=== PATIENT | male | born 1950 | race Caucasian/White ===

== ENCOUNTER 2020-05-29 10:18 | Outpatient (CLI) | payer MEDICARE, MEDICAID, SELFPAY ==
--- NOTE | 2020-05-29 10:30 | CT_ITS ---
WS: [id number] CT NECK WITH CONTRAST HISTORY: OTHER DYSPHAGIA TECHNIQUE: Contiguous 5 mm axial images are performed through the neck with intravenous contrast. Sag ittal and coronal reformats are also submitted. All CT scans at [facility] use at least o ne of these dose optimization techniques: automated exposure control; mA and/or kV adjustment per pat ient size (includes targeted exams where dose is matched to clinical indication); or iterative recons truction. CONTRAST: CONTRAST: Omnipaque 300; 95 mL IV. DLP: 1536.86 mGycm COMPARISON: None available. Large enhancing soft tissue mass centered in the RIGHT neck begins at the RIGHT tongue base and palat ine tonsil and extends inferiorly along the pharyngeal mucosa to the level of the vocal cords. Mass e xtends over a length of at least 8 cm with a maximum diameter of 3.2 cm. There is mixed enhancement a nd areas of nonenhancement which are probably areas of necrosis or abscess formation. Mass extends to involve the epiglottis and the RIGHT vallecula and pyriform sinus. Just below the hyoid cartilage th e mass probably extends to the LEFT of the midline posteriorly although the mass does abut the hyoid cartilage in the thyroid cartilage there is no displacement or destruction apparent at this time. The parapharyngeal fat is been effaced and intubated with the soft tissue. Mass extends posteriorly to a but the prevertebral muscles. There are small cervical chain lymph nodes. The largest at level 2 a 7 mm. There may be additional ly mph nodes encased within the large soft tissue mass. Thyroid gland and salivary glands are normally enhancing with no masses. Increase in cervical lordosis. No osteoblastic or osteolytic disease. Chronic microvascular ischemic disease around the periventricular white matter. RIGHT internal jugul ar vein small caliber. Visualized paranasal sinuses and mastoid air cells are normal. Lung apices are clear. CT/CT neck w con* [id number] IMPRESSION: 1. Very large mass centered in the RIGHT suprahyoid and infrahyoid neck concer antonia for neoplasm. Mild encroachment upon the airway. 2. Mass begins at the RIGHT tongue base and extends inferiorly over a length o f at least 8 cm with a maximum transverse diameter of 3.2 cm. Mass involves the pharyngeal mucosa, epiglottis, RIGHT vallecula and pyriform sinus and the voca l cords. 3. Small cervical chain lymph nodes. There may be additional lymph nodes encas ed within the neoplasm along the RIGHT neck.
[2020-05-29 11:16] LABS: Blood Urea Nitrogen 10 mg/dL (8-23)
[2020-05-29] MEDS: iohexol 300 mg/mL 100 mL Btl IV (11:21)
== END 2020-05-29 10:19 | disposition home or self-care (01) ==
LOC: RADWPI 10:28
PROVIDERS: Family Provider Nurse Practitioner Family; PCP Nurse Practitioner Family; Visit Provider Specialist
DX: R13.19 Other dysphagia (principal); R22.1 Localized swelling, mass and lump, neck
CPT/HCPCS: 70491; 82565; 84520; Q9967

== ENCOUNTER 2020-05-31 11:13 | Outpatient (CLI) | payer MEDICARE, MEDICAID, SELFPAY ==
--- NOTE | 2020-06-01 08:32 | PTH.FRZRPT ---
Frozen Section Notes Speicmen(s): Right oropharyngeal mass Gross: Multiple ward red polypoid fragments measuring 0.8 x 0.6 x 0.5 cm in agg. Preliminary Impression: Squamous cell carcinoma - Specimen Information Pathologist: Latanya Cool Date: 05/31/20 Time Received: 10:45 Time Reported: 10:55 Pathology Specimen Reported to: Dr. Pablito Cesar Specimen reported at what time: 10:55
== END 2020-05-31 11:14 | disposition home or self-care (01) ==
PROVIDERS: PCP Nurse Practitioner Family; Visit Provider Specialist
DX: C10.9 Malignant neoplasm of oropharynx, unspecified (principal)
CPT/HCPCS: 88309

== ENCOUNTER → 2020-07-06 09:59 | Outpatient (BNVA) | payer MEDICARE, MEDICAID, SELFPAY | PROVIDERS: PCP Nurse Practitioner Family; Visit Provider Surgery | DX: Z11.59 Encounter for screening for other viral diseases (principal) | CPT/HCPCS: 87635 ==

== ENCOUNTER 2020-07-10 05:35 | Outpatient (RCR) | payer MEDICARE, MEDICAID, SELFPAY ==
--- NOTE | 2020-07-03 | CT_ITS ---
Radiation Therapy Planning CT images; total exam DLP: 1392.85 mGy-cm MTDD
[2020-07-03] MEDS: lidocaine 1% INJ 20 mL IV (10:40)
--- NOTE | 2020-07-03 13:14 | ONC CON_ITS ---
Dr. Krishnamurthy New Patient Note Patient: Stan Zacarias Unit #: [id number]: 1950 Dicatated By: Stan Krishnamurthy M.D.Date of Visit: Jul 03, 2020 Onc MED New Patient/Consult Referring Physician: Dr. Pablito Cesar M.D. Chief Complaint: Squamous cell carcinoma of the oropharynx. 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 He presents with a 4-month history of oral/pharyngeal pain and difficulty swallowing. He was seen by Dr. Steve on 05/29/2020 and he was noted on exam to have a mass in the right oropharynx which was noted to extend inferiorly. His neck CT showed a large enhancing soft tissue mass centered in the right neck beginning at the right tongue base and palate teen tonsil and extending inferiorly along the pharyngeal mucosa to the level of the vocal cords. The mass was noted to extend over a distance of at least 8 cm with a maximum diameter of 3.2 cm. The mass was noted to involve the epiglottis and the right vallecula and piriform sinus. Below the hyoid cartilage it appeared to extend to the left of the midline posteriorly. The parapharyngeal fat was noted to be effaced and intubated with the soft tissue. The mass was noted to extend posteriorly to abut the prevertebral muscles. Small cervical chain lymph nodes were noted, the largest at level 2 measuring 7 mm. On 05/31/2020 he underwent laryngoscopy/esophagoscopy with biopsy of the right oropharyngeal mass. The mass was noted to have its focus on the right tonsil with extension up into the nasopharynx behind the right soft palate and down into the right lateral oropharynx and into the upper far portion of the piriform sinus. It also was noted to extend diffusely across the posterior oropharynx to at least the midline and possibly a little past the midline. It appeared to involve the area epiglottic fold on the right but the true vocal cords appeared to be normal. He also was noted to have mild esophagitis. The right and left trachea and right and left mainstem bronchi appeared normal. Pathology showed moderately differentiated squamous cell carcinoma. The P16 stain was strongly and diffusely positive. Staging PET/CT on 06/19/2020 showed a large FDG avid right oropharyngeal mass extending from the level of the nasopharynx to the supraglottic larynx measuring 3.6 x 4.7 cm, SUV 17.7. A 9 mm right level 2A lymph node was FDG positive with SUV 3.6 consistent with local metastatic disease. There was no evidence for any other metastatic involvement. He is seen now for further management. He complains that he has no energy. His activity has been very limited. ECOG score is 2. Appetite and oral intake have been poor. His weight is down at least 15 pounds. He does not have fever or night sweats. He has pain in the mouth and throat and he has sharp pains in his right ear. He has had some hearing loss on that side. He continues to have difficulty swallowing. He has COPD and he says his breathing is terrible. He has cough, and at times he has been coughing up blood. He does not complain of chest pain. He has no GI complaints other than his bowel function has not been good due to his poor oral intake. He has urinary frequency and nocturia. He has generalized arthritis pain. The worst is in his back and hips. He has significant pain on the right side of the neck, and he has headache associated with it. He has no focal neurologic symptoms. Past Medical History: His medical history includes anxiety, benign prostatic hyypertrophy, chronic obstructive pulmonary disease, degenerative arthritis, hypertension, and rheumatoid arthritis. Past Surgical History: He underwent laryngoscopy/esophogoscopy on 05/31/2020. His other surgeries have been limited to skin cancer excision and TURP. Medications: amLODIPine Besylate 1 Tablet (of 5 mg) Oral daily, Finasteride 1 Tablet (of 5 mg) Oral daily, Flomax 1 Capsule (of 0.4 mg) Oral daily, Meloxicam 1 Tablet (of 15 mg) Oral daily, Methotrexate 1 Tablet (of 2.5 mg) Oral q 7 days, oxyCODONE-Acetaminophen 1 Tablet (of 5-325 mg) Oral q 6 hours, Spiriva HandiHaler 1 Capsule (of 18 mcg) Inhalation daily, Symbicort 1 Puff(s) (of 160-4.5 mcg/act) Aerosol Inhalation b.i.d., Ventolin HFA 1 Puff(s) (of 108 (90 base) mcg/act) Aerosol, solution Inhalation four times a day Allergies: No Known Allergies. Social History: Mr. aZcarias is . 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 He has a history of smoking cigarettes for 56 years, estimated in the range of 1 pack daily, though he rolls his own. He drinks 8-10 beers daily. Family History: Both parents are , cause unknown to the patient. He has two brothers and a sister, but he has no knowledge about the status of their health. Review Of Symptoms: Constitutional - He has poor energy and his activity is very limited. Appetite and oral intake are poor. His weight is down at least 15 pounds. He does not have fever or night sweats. ECOG score is 2, Eyes - No change in vision, ENMT - He has been having sharp pain in the right ear, he does have some hearing loss on that side. No sinus congestion/drainage. His mouth and throat are sore and he is having difficulty swallowing, Hematologic/Lymphatic - He has easy bruising, Respiratory - He has shortness of breath. He has cough and at times he has been coughing up blood, Cardiovascular - No angina pain. No palpitations, Gastrointestinal - No nausea or vomiting. No heartburn or acid reflux. He has constipation. No blood in the stool or black stools, Genitourinary (M) - No dysuria or hematuria. He has urinary frequency and nocturia. No urgency or incontinence, Musculoskeletal - He has generalized arthritis pain. The most significant is in his back and hips, Integumentary - No skin rash, Neurologic - He has headache associated with the neck pain on the right side. No dizziness. No numbness or tingling. No other focal neurologic symptoms, Psychiatric - He has depression. He is not sleeping well. Vital Signs: Performed on Jul 03, 2020 10:30: 72.00 in, 169.4 lbs, 98.2 F, 82, 22, 131/71 mm(hg), 95 % (LOW), 7, and Performed on Jul 03, 2020 10:30: 22.975 kg/m2 (HIGH). Physical Examination: Constitutional - He appears somewhat weak generally, Eyes - Sclerae nonicteric. Conjunctivae clear, ENMT - There is limited mobility of the mouth. I don't see any lesions in the oral cavity, Neck - No mass or thyromegaly, Hematologic/Lymphatic - There is some mild soft tissue swelling at the angle of the jaw on the right side, and he has tender in that area. There is no other cervical or clavicular adenopathy noted and there is no axillary adenopathy, Respiratory - Lungs are clear with diminished air movement bilaterally, Cardiovascular - Heart rhythm is regular. There is no murmur, gallop, or rub noted, Abdomen - Soft and non-tender. Liver and spleen are not enlarged. There is no abdominal mass or ascites noted and there is no inguinal adenopathy, Back/Spine - No spine or CVA tenderness noted, Extremities - No edema. Pedal pulses are palpable bilaterally. There is chronic purpura on both arms, Integumentary - No rashes. No suspicious skin lesions noted, Neurologic - No focal neurologic deficits noted. Impression: 1. 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 2. He has difficulty swallowing and he has associated weight loss and declining performance status. 3. He continues to smoke, and he has significant ongoing alcohol use. His other medical illnesses include: 4. Hypertension. 5. COPD. 6. Degenerative arthritis and presumably rheumatoid arthritis. 7. Benign prostatic hypertrophy. Plan: The clinical findings and pathology results were reviewed with the patient. We discussed the clinical implications. 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 He is having difficulty swallowing, and he has associated weight loss and declining performance status. He is recommended to undergo chemoradiation, but management will be problematic, mainly due to his social circumstances. He is beginning his radiation planning. He will be referred to surgery for PEG tube placement and placement of Port-A-Cath venous access device. In the meantime, he will be given samples of Ensure to begin some form of nutritional support. Soon as his radiation planning is completed, he will begin chemoradiation utilizing a standard high-dose cisplatin regimen. I reviewed anticipated side effects with the chemotherapy whIch may include nausea/vomiting, alopecia, fatigue, low blood counts, and neuropathy, including the potential for hearing loss, among others. He indicates that he is agreeable to proceeding with treatment as recommended. He will be given a prescription for immediate release oxycodone 10 mg to take up to 4 times daily for his pain. I am also recommending that he stop the methotrexate. Signed By: Stan Krishnamurthy M.D. <<Signature on File>>
--- NOTE | 2020-07-04 12:23 | N.ONRAD NP_ITS ---
Radiation Oncology New Patient Visit Patient: Stan Zacarias MR#: [id number] : 1950 Age: 70 Sex: Male Dictated by: Dr. Bhavesh Lozano Date of Service: 07/03/2020 Referring Physician(s) : Dr. Pablito Cesar Diagnosis: Stage III (T4 N1 M0) P 16+ squamous cell carcinoma originating in the right oropharynx. The tumor is an 8 cm long x 3.2 cm wide mass extending from the right piriform sinus, upwards through the right base of tongue, right tonsil, posterior pharynx crossing midline, nasopharynx, and upwards to the right base of skull. Per personal review of the PET/CT, the tumor appears to track along the facial nerve to the base of skull as there is FDG avidity into the area of the right stylomastoid foramen. The patient also has significant trismus, odynophagia, and right otalgia. Potential treatment challenges include: Continued use of 8-10 cans of beer/day; persistent smoking; patient lives alone; round trip drive of 3 hrs/day; high risk for mcc peg tube dependence; the possibility of requiring an emergent tracheostomy if laryngeal swelling occurs; and the fact that he requires opiate pain medication (potential driving issues???). Purpose of Visit: Discuss the role of radiotherapy with curative intent. History of Present Illness: The patient is a 70-year-old male with a current significant smoking history and a current practice of consuming 8-10 beers per day. In February of this year, the patient reports seeking medical attention from a nurse practitioner with odynophagia. He was treated with empiric antibiotics and as his symptoms continue to progress to include dysphagia and otalgia, he was ultimately referred to an ENT specialist, Dr Cesar. A CT of the neck with contrast (05/29/2020) revealed an 8 cm long x 3.2 cm wide mass with mixed areas of necrosis/abscess involving the right tongue base, pontine tonsil, epiglottis, right vallecula, inferior along the pharyngeal mucosa to the level of the vocal cords, right piriform sinus. In addition, the mass extends inferiorly below the hyoid cartilage and extends to the left of midline posteriorly. The mass does abut the hyoid cartilage and thyroid cartilage, but there is no displacement or destruction of cartilage. The mass extends posteriorly to abut the prevertebral muscles. Only small cervical chain lymph nodes were appreciated, the largest being at level 2A measuring 7 mm. On 05/31/2020, Dr. Cesar performed direct laryngoscopy and flexible esophagoscopy. Per the operative note, a large exophytic mass that appeared to have its focus in the right tonsil extended up into the nasopharynx, behind the right soft palate, and down into the right lateral oropharynx into the upper far portion of the piriform sinus. It also appeared to extend diffusely across the posterior oropharynx to at least the midline and possibly a little past the midline. The tumor appeared to involve the right area epiglottic fold, but the vocal cords were normal. Aside from mild esophagitis, the esophagus was normal to the GE junction. Biopsy of the right oropharyngeal mass revealed moderately differentiated squamous cell carcinoma, P16 strongly positive, and p63 was strongly positive. Biopsy at the GE junction was also completed, and pathology revealed no histopathologic abnormalities. A PET/CT (06/17/2020) revealed a large FDG avid mass extending from the right nasopharynx down to the supraglottic larynx. A 9 mm FDG positive right level 2A lymph node was also appreciated. Furthermore, FDG avidity tracks superiorly into the right styloid process. In consultation today, the patient reports odynophagia, unintended weight loss, right otalgia, and painful trismus. He continues to drink 8-10 cans of beer per day, and he continues to smoke the tobacco equivalence of ~ 1 pack per day. Current Medications: AmLODIPine Besylate, finasteride, flomax, meloxicam, methotrexate, oxyCODONE HCl, oxyCODONE-Acetaminophen, spiriva HandiHaler, symbicort, ventolin HFA. Allergies: No Known Allergies Medical History: - Anxiety, - chronic bronchitis, - history of skin cancer, - hypertension, - rheumatoid arthritis. No history of collagen vascular disease. No previous radiation therapy. Surgical History: Prostate surgery. Family History: Father is at age 82. Mother is at age 82. Both parents are , cause unknown to the patient. He has two brothers and a sister, but he has no knowledge about the status of their health. Social History: Last screened on 07/03/2020 - Heavy tobacco smoker 1.0 pack/day for 56 years (56 pack years). Last screened on 07/03/2020 - Active drinker 10 drinks/day 7 days/week. Current Complaints / Review of Systems: ROS Constitutional - He has poor energy and his activity is very limited. Appetite and oral intake are poor. His weight is down at least 15 pounds. He does not have fever or night sweats. ECOG score is 2. ROS Eyes - No change in vision. ROS ENMT - He has been having sharp pain in the right ear, he does have some hearing loss on that side. No sinus congestion/drainage. His mouth and throat are sore and he is having difficulty swallowing. ROS Hematologic/Lymphatic - He has easy bruising. ROS Respiratory - He has shortness of breath. He has cough and at times he has been coughing up blood. ROS Cardiovascular - No angina pain. No palpitations. ROS Gastrointestinal - No nausea or vomiting. No heartburn or acid reflux. He has constipation. No blood in the stool or black stools. ROS Genitourinary (M) - No dysuria or hematuria. He has urinary frequency and nocturia. No urgency or incontinence. ROS Musculoskeletal - He has generalized arthritis pain. The most significant is in his back and hips. ROS Integumentary - No skin rash. ROS Neurologic - He has headache associated with the neck pain on the right side. No dizziness. No numbness or tingling. No other focal neurologic symptoms. ROS Psychiatric - He has depression. He is not sleeping well.. Vital Signs: Performed on 07/03/2020 10:30 AM BMI - 22.975 kg/m2 (high), Height - 72.00 in, Weight - 169.4 lbs, Temperature - 98.2 f, Pulse - 82, Respiration - 22, O2 Sat - 95 % (low), Pain - 7, BP - 131/ 71 mm(hg), Performed on 07/03/2020 5:38 PM Height - 72.00 in, Weight - 169.4 lbs, BSA - 1.99 sq.m and BMI - 22.97. Physical Exam: GENERAL:??? The patient is alert, and in no acute distress. HEENT:??? Head is normocephalic. Face is symmetric. External ocular movements are intact. Sclera and conjunctivae are non erythematous. Trismus of 2 cm was appreciated. The patient is edentulous. NECK:??? Trachea is midline.??? Thyroid is not enlarged by palpation.??? LYMPH NODES:??? There is no palpable cervical or supraclavicular adenopathy bilaterally. LUNGS:??? Clear to auscultation bilaterally. Respiratory movement is unlabored. HEART:??? Regular rate and rhythm. EXTREMITIES:??? No deformities. NEUROLOGIC:??? Gait and station are normal.??? The patient is well coordinated and strength is equal bilaterally. SORTER PRICER:??? Cranial nerves II-XII are intact and without focal deficits.??? Psych: Affect is normal. Skin: Cursory review of the skin reveals no obvious lesions concerning for malignancy. Nasolaryngoscopy: Fiberoptic nasolaryngoscopy was completed. The nasal cavity and nasopharynx was prepped with a 50/50% nasal spray solution of 1% phenylephrine and 1% lidocaine. After advancing the scope into the left and right nares, there was so much tumor burden that the nasopharynx was full of tumor with significant mass effect. The left torus tubarius was obscured by mass effect. Also due to mass effect, evaluation of the oropharynx & larynx was obscured. Performance Status: 2 - Ambulatory/capable of all self-care, unable to perform any work activities. Up and about more than 50% of waking hours. (ECOG) Impression: The patient is a 70-year-old male with stage III (T4 N1 M0) P 16+ squamous cell carcinoma originating in the right oropharynx. The tumor is an 8 cm long mass extending from the right piriform sinus, upwards through the right base of tongue, right tonsil, nasopharynx, and upwards to the right base of skull. Per personal review of the PET/CT, the tumor appears to track along the facial nerve to the base of skull as there is FDG avidity into the area of the right stylomastoid foramen. The patient also has significant trismus, but he has no facial nerve paralysis on physical exam. We discussed the curative intent treatment goals of radiotherapy, prognosis with and without radiation therapy, radiation treatment logistics, and potential acute and late side effects in detail. The patient verbalized understanding of the risks/benefits of radiotherapy and the patient has agreed to proceed as recommended. I anticipate a complicated treatment course as the patient continues to drink 8 to 10 cans of beer per day, he continues to smoke, he lives alone, and he travels 1.[address] per day. We discussed smoking cessation and alcohol cessation as he is able without experiencing serious alcohol withdrawal symptoms. The patient shared that he is unwilling to cease smoking & drinking. The patient was cautioned that continuing to drink and smoke, especially during treatment, could cause laryngeal swelling to the point that he might require emergent tracheostomy. Therefore the plan is: -) Begin radiation therapy planning today for a planned aggregate dose of 70 Gy/35 fractions concurrent with habematolel based chemotherapy; -) Refer the patient for PEG tube placement along with a planned chemotherapy port; and, -) This patient will likely need long-term pain management. Since I will be covering only temporarily, I will defer pain management to our medical oncology colleagues. The patient will see Dr. Krishnamurthy today after this visit. Signed by: Bhavesh Lozano MD 07/04/2020 12:21:59 PM <<Signature on File>> CPT Code: CPT Code:
== END 2020-07-10 23:59 | disposition home or self-care (01) ==
LOC: ONCMED 05:35
PROVIDERS: Absent Provider Radiology Radiation Oncology; PCP Nurse Practitioner Family; Visit Provider Radiology Radiation Oncology
DX: C10.8 Malignant neoplasm of overlapping sites of oropharynx (principal); R63.4 Abnormal weight loss; F17.210 Nicotine dependence, cigarettes, uncomplicated; I10 Essential (primary) hypertension; J44.9 Chronic obstructive pulmonary disease, unspecified; M19.90 Unspecified osteoarthritis, unspecified site; N40.0 Benign prostatic hyperplasia without lower urinary tract symptoms; Z72.89 Other problems related to lifestyle
CPT/HCPCS: 77300; 77301; 77334; 77338; 77386; 77470; 99205; 99215

== ENCOUNTER → 2020-07-10 09:26 | Day surgery (SDC) | payer MEDICARE, MEDICAID, SELFPAY ==
[2020-07-07 12:48] VITALS: BMI 23.0
[2020-07-10 10:21] VITALS: BP 134/86; PULSE 93; RESP 18; TEMP 37.1; O2SAT 96
[2020-07-10] MEDS: sodium chloride 0.9% 1,000 ML 30 ML IV (10:37)
[2020-07-10 11:49] LABS: Basophils % 0.1 %; Eosinophils % 0.1 %; Hematocrit 38.4 % (42.0-52.0); Hemoglobin 12.5 g/dL (11.7-16.6); Lymphocytes # 1.1 10^3/uL (0.8-4.8); Mean Corpuscular HGB Conc 32.6 g/dL (30.0-36.0); Mean Corpuscular Hemoglobin 34.5 pg (28.0-34.0); Mean Corpuscular Volume 106.1 fL (80-94); Mean Platelet Volume 10.9 fL (7.4-10.4); Monocytes # 1.3 10^3/uL (0.2-0.9); Monocytes % 13.7 %; Neutrophils # 6.74 10^3/uL (1.8-7.7); Neutrophils % 73.9 %; Nucleated Red Blood Cells % 0 %; Platelet Count 376 10^3/cmm (130-400); Red Blood Count 3.62 10^6/uL (4.1-5.3); Red Cell Distribution Width 12.6 % (12.1-15.1); White Blood Count 9.1 10^3/uL (4.0-10.0)
[2020-07-10] MEDS: fentaNYL 50 mcg/mL INJ 2mL IVP (11:55)
[2020-07-10 12:05] LABS: Blood Urea Nitrogen 6 mg/dL (8-23); Calcium 9.6 mg/dL (8.5-10.5); Carbon Dioxide 28 mmol/L (22-29); Chloride 92 mmol/L (98-107); Creatinine Clr Calc Pharmacy 91.3802; Glucose 125 mg/dL (65-115); Osmolality Calculated 273 mOsm/kg (285-295); Sodium 132 mmol/L (136-145)
[2020-07-10 12:08] LABS: Anion Gap 16.4 (5-19); Potassium 4.4 mmol/L (3.5-5.1)
--- NOTE | 2020-07-10 12:59 | SUR.PREOP ---
Addendum entered by Cadence Lewis 07/10/20 13:00: pt given instructions for surgery tomorrow and told to be back here at 0550. pt daughter told this as well. Pt left in wheelchair discharged to daughter. Original Note: patient is being rescheduled to tomorrow at 0700. pt cancelled today due to concern by anesthesia for difficulty intubating due to health condition. plan to do procedure tomorrow at [address] Cesar is available and here for complications.
== END ==
PROVIDERS: PCP Nurse Practitioner Family; Visit Provider Surgery
PROC: 0DH63UZ Insertion of Feeding Device into Stomach, Percutaneous Approach (ICD-10-PCS; CPT 43246; 2020-07-10 11:55)
DX: C76.0 Malignant neoplasm of head, face and neck (principal); J39.2 Other diseases of pharynx; R63.3 Feeding difficulties; Z53.9 Procedure and treatment not carried out, unspecified reason
CPT/HCPCS: 36415; 80048; 85025; J1100; J2250; J3010; J3490; J7030

== ENCOUNTER 2020-07-11 09:15 | Inpatient (IN) | payer MEDICARE, MEDICAID, SELFPAY ==
[2020-07-11] VITALS (25 sets, daily range): BP systolic 103–154; BP diastolic 66–102; PULSE 70–95; RESP 10–28; TEMP 36.6–37.2; O2SAT 87–99; BMI 23.0
--- NOTE | 2020-07-11 | SCC_ITS ---
Procedure Done: Right subclavian vein PowerPort placement 12.6 seconds of fluoroscopic guidance, for a cumulative dose of 2.0mGy, was provided to Dr. Vang by the radiology department. C-arm images of the chest were saved for the patient's permanent record. [facility]
--- NOTE | 2020-07-11 06:26 | W.PM.OPSUD ---
Surgery/Procedure H&P Update DATE OF PROCEDURE: July 11, 2020 DATE H&P PERFORMED: 07/06/20 H&P UPDATE INFORMATION: I have reviewed H&P completed within last 30 days, I have examined patient prior to procedure and Changes to prior documentation as noted here (Patient was scheduled to undergo his procedure yesterday yet I had to postpone till today to have Dr. Steve ENT surgeon available as the patient represent a difficult airway, I did coordinate with Dr. Powell meat products demonstrator about that plan and she agrees to proceed in the presence of ENT service. Particularly that the patient was last seen by ENT service a month ago and potential changes could have taken place.) CHANGES TO PREVIOUS DOCUMENTATION: Patient understands the difficult anatomy that he has because of the oropharyngeal mass. He also understands the potential difficulty extubation and may require mechanical ventilation. He is also aware about the potential high risk of bleeding related to the mass while we are performing the PEG tube placement. The discussion did take place in the presence of patient's nurse Kinga HAINES and patient agrees to proceed accordingly. PREOP DIAGNOSIS: Oropharyngeal cancer PRIMARY INDICATION FOR PROCEDURE: The same PLANNED PROCEDURE: Operation Date: 07/11/20 07:00 Proposed Procedures p Portacath Placement(Not Applicable) - Travis Vang MD s PEG Tube Insertion(Not Applicable) - Travis Vang MD
--- NOTE | 2020-07-11 06:39 | SC_ITS ---
WS: [id number] INTRAOPERATIVE TECHNIQUE: 2 Spot fluoroscopic images for intraoperative purposes. FLUOROSCOPY TIME: 12.6 seconds CLINICAL INFORMATION: port placement COMPARISON: None. FINDINGS: Right Port-A-Cath with tip in the mid SVC in good position. No visualized pneumothorax. SC/C-arm FL for CVA [id number] IMPRESSION: Images obtained for intraoperative purposes.
[2020-07-11] MEDS: sodium chloride 0.9% 1,000 ML 30 ML IV (06:43)
[2020-07-11] MEDS: dexamethasone 4 mg/mL INJ 8 MG INJECTION (06:50)
--- NOTE | 2020-07-11 06:54 | ANES.PREANE2 ---
Pre-Anesthetic Assessment Pre-Anesthetic Assessment: Height/Weight: Height 1.83 m Weight 77.111 kg Preop Diagnosis: Oropharyngeal cancer Proposed Procedure: Operation Date: 07/11/20 07:00 Proposed Procedures p Portacath Placement(Not Applicable) - Travis Vang MD s PEG Tube Insertion(Not Applicable) - Travis Vang MD Familial anesthetic complications: None Was Beta Lexx taken within 24 hours: N/A Last intake: Intake Last Liquid Date 07/11/20 Last Liquid Time 02:00 Last Solid Date 07/10/20 Last Solid Time 23:30 Social: Social History: Alcohol and Tobacco Exam: Pre-Anes Outpt Exam: alert, oriented x 3, clear to auscultation bilaterally and regular rate & rhythm Additional Exam Findings (including area of procedure): coarse breath sounds Airway: MP: 4 Dentition: Full Additional comments: patient unable to open mouth fully Pulmonary: Pulmonary: COPD and Cough Anesthetic Plan: ASA status: 4 Anesthesia: General Other: Large mass impinging on airway, last evaluated 1 month ago, will have Dr. Tali ZhaoNSrikanth at bedside for intubation Risk of > 500 ml blood loss (7ml/kg in children): No Meds/Allergies Current Medications: Current Medications Generic Name Dose Route Start Last Admin Trade Name Freq PRN Reason Stop Dose Admin Sodium Chloride 1,000 mls @ 30 ml s/hr 07/11/20 06:45 07/11/20 06:43 Sodium Chloride 0.9% IV 07/12/20 06:44 30 mls/hr .Q24H NOEL Administration PFSH Anesthesia PFSH: Medical History Oropharyngeal mass Family History Denies family history of Diabetes CAD (coronary artery disease) Anesthesia complication Bleeding disorder Cancer Social History Smoking and tobacco status: current every day smoker Alcohol intake: current Alcohol intake frequency: 3 or more drinks per day Alcohol type: beer Lives independently: Yes Household members: family Marital status: Single Current occupational status: retired History of recent travel: No Data Anesthesia Cardiac Studies: No Data to Display
[2020-07-11] MEDS: lidocaine 2% INJ 20 mL 40 ML INJECTION (07:30)
[2020-07-11] MEDS: thrombin 5,000 unit SDV 5000 UNIT XX (07:45)
--- NOTE | 2020-07-11 08:18 | SUR.OPER ---
0749 - Dr Vang and Dr Ceasr spoke with daughter about need for emergency trach. 2147 - Pt's daughter updated on surgery progress and pt status via her cell phone.
--- NOTE | 2020-07-11 08:26 | XR_ITS ---
WS: [id number] CHEST XRAY TECHNIQUE: Portable chest. CLINICAL INFORMATION: post port placaement COMPARISON: None. FINDINGS: Tracheostomy. Right Port-A-Cath with tip in the distal SVC. Heart: Cardiomegaly. Lungs: Moderate chronic emphysematous changes. No acute pulmonary infiltrates. No focal pneumonia. Az ygos fissure. Bones: Normal visualized bony structures. XR/XR chest 1V portable [id number] IMPRESSION: Right Port-A-Cath with tip in the distal SVC in good position. No pneumothorax.
--- NOTE | 2020-07-11 08:28 | SUR.OPER ---
late entry - pt had nipple piercings x2 and an umbilical piercing. jewelry taken our and replaced with plastic catheter during procedure. will replace at end of procedure.
[2020-07-11] MEDS: heparin 5,000 unit/mL INJ 1 mL 5000 UNIT IRRIGATION (08:30)
--- NOTE | 2020-07-11 09:30 | PC.NURSE ---
Pt arrives to ICU fro Surgery. Ne tach noted. patent. Pt coughing , suctioning bloody secretions. Dressing noted on upper right chest, area slightly puffy and pink from recent port implantation. PEG tube noted mid upper abdomen, no discharge/bleeding noted. Abdominal binder in place. Jewelry noted in belly button and bilat nipples. Iv site noted Left AC, NS infusing.
--- NOTE | 2020-07-11 09:46 | P.CONIM_ITS ---
Providers/Reason For Consult Consulting Physican/Specialty*: mary alice Joynerist Reason for Consult*: Medical management Attending Physician: Travis Vang MD Primary Care Provider: Yesenia Lizarraga History of Present Illness History of Present Illness Stan Zacarias is a 70 year old male with a past medical history of squamous cell carcinoma of the oropharynx that presented today for PEG tube placement as well as Port-A-Cath placement. Due to concern for oropharyngeal mass and difficult airway ENT was also available during this planned procedure and ultimately required tracheostomy. Patient was brought to the ICU following surgery for close observation and monitoring. Unable to obtain information from patient due to procedural sedation Review of Systems General: Reports: ROS unobtainable due to medical condition Meds/Allergies Home Medications and Allergies Home Medications Medication Instructions Recorded Confirmed Last Taken Type albuterol sulfate 90 mcg/actuation 1 inh INHALATION QID 07/06/20 07/11/20 07/11/20 History aerosol inhaler amlodipine 2.5 mg tablet 2.5 mg PO DAILY 07/06/20 07/11/20 07/11/20 03:00 History budesonide-formoterol HFA 160 2 puff INHALATION BID 07/06/20 07/11/20 07/11/20 03:00 History mcg-4.5 mcg/actuation aerosol inhaler finasteride 5 mg tablet 5 mg PO DAILY 07/06/20 07/11/20 07/10/20 History meloxicam 15 mg tablet 15 mg PO DAILY 07/06/20 07/11/20 07/10/20 History methotrexate sodium 2.5 mg tablet 2.5 mg PO DIRECTED 07/06/20 07/11/20 07/05/20 History tamsulosin 0.4 mg capsule 0.4 mg PO DAILY 07/06/20 07/11/20 07/10/20 History tiotropium bromide 2.5 2 puff INHALATION DAILY 07/06/20 07/11/20 07/11/20 History mcg/actuation mist for inhalation oxycodone 10 mg PO Q6H PRN 07/07/20 07/11/20 07/11/20 00:00 History Allergies Allergy/AdvReac Type Severity Reaction Status Date / Time No Known Allergies Allergy Verified 07/08/20 16:45 PFSH Acute PFSH: Medical History Anxiety BPH (benign prostatic hyperplasia) COPD (chronic obstructive pulmonary disease) Hypertension Rheumatoid arthritis 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 Cesar, Dr. Krishnamurthy and Dr. Lozano Surgical History H/O transurethral resection of prostate History of biopsy 05/31/2020 laryngoscopy with biopsy of right oropharyngeal mass History of local excision of skin lesion Family History Mother , Unknown health problems No problems noted. Father , Unknown health problems No problems noted. Denies family history of Diabetes CAD (coronary artery disease) Anesthesia complication Bleeding disorder Cancer Social History Smoking and tobacco status: current every day smoker Alcohol intake: current Alcohol intake frequency: 3 or more drinks per day Alcohol type: beer Lives independently: Yes Household members: family Marital status: Single Current occupational status: retired History of recent travel: No Vitals/I&O/Wt Last Vital Signs Pulse 70 07/11/20 09:42 BP 104/78 07/11/20 09:42 Pulse Ox 90 07/11/20 09:42 07/10/20 07/11/20 07/11/20 22:59 06:59 14:59 Intake Total 100 / 100 1050 / 1050 Balance 100 / 100 1050 / 1050 Weight last 48 hrs Weight 77.111 kg Weight 77.111 kg Physical Exam Const: OTHER: Sleepy secondary to post procedural sedation HENMT: OTHER: Tracheostomy in place Eye: COMMON NORMALS: Equal, round and reactive pupils present PUPIL: Yes Equal, round and reactive pupils present Neck/C-Spine: OTHER: Tracheostomy in place Resp: OTHER: Tracheostomy in place with some secretions status post placement. Lungs clear to auscultation, no appreciable wheezing or rhonchi Cardio: COMMON NORMALS: regular rate, regular rhythm and No murmurs present (Cardio) RATE: regular rate RHYTHM: regular rhythm GI: COMMON NORMALS: Soft to palpation and non-tender INSPECTION: No abdominal distension AUSCULTATION: Yes normoactive bowel sounds PALPATION: Yes Soft to palpation OTHER: PEG tube in place Extremity: COMMON NORMALS: no clubbing, cyanosis or edema Neuro: COMMON NORMALS: CN's II-XII intact bilaterally and no focal motor deficits OTHER: Tracheostomy in place, patient still somewhat sedated following the procedure Psych: OTHER: Come at this time, patient is still under some sedation effects after his procedure Skin: COMMON NORMALS: no rashes or lesions noted GENERAL SKIN EXAM: no rashes or lesions noted Data Imaging^: CXR: I personally reviewed and interpreted this imaging study as follows: Radiologist's impression: FINDINGS: Tracheostomy. Right Port-A-Cath with tip in the distal SVC. Heart: Cardiomegaly. Lungs: Moderate chronic emphysematous changes. No acute pulmonary infiltrates. No focal pneumonia. Azygos fissure. Bones: Normal visualized bony structures. XR/XR chest 1V portable [id number] IMPRESSION: Right Port-A-Cath with tip in the distal SVC in good position. No pneumothorax. A&P Assessment and plan (1) Squamous cell carcinoma of oropharynx: Status post PEG tube placement, Port-A-Cath placement and tracheostomy today performed by Dr. Vang and Dr. Cesar We will follow-up with postoperative care per surgical recommendations Status: Acute (2) Feeding difficulty: Patient with difficulty with feeding due to large oropharyngeal cancer, PEG tube placed today Follow-up with general surgery, Dr. Vang, will likely be able to start use of feeding tube tomorrow Status: Acute (3) Hypertension: Blood pressures well controlled at this time, slightly hypotensive Is on amlodipine 2.5 mg daily, hold today and restart tomorrow if blood pressures allow Status: Acute (4) COPD (chronic obstructive pulmonary disease): With continued tobacco abuse, uncertain if patient is on any home oxygen Status post tracheostomy today Respiratory therapy to assess and treat Oxygen per protocol Status: Acute (5) Anxiety: Will provide Ativan during hospitalization as needed, does not appear to be on any home medications for anxiety Status: Acute (6) BPH (benign prostatic hyperplasia): Continue home Flomax 0.4 mg daily Status: Acute (7) Rheumatoid arthritis: Previously on methotrexate, recommendation to be stopped by Dr. Krishnamurthy, oncology Status: Acute Additional A&P Information DVT prophylaxis: SCDs, no pharmacologic prophylaxis due to tracheostomy and PEG tube placement along with Port-A-Cath placement today Diet: N.p.o., start tube feeds tomorrow CODE STATUS: Full code Consult Attestations Medical Necessity Statement: Patient requires hospitalization due to oropharyngeal mass, squamous cell carcinoma, requiring tracheostomy placement and PEG tube and Port-A-Cath placement. Coding Level of Care Code Acute Emergency Medicine Specialist for g Fwd Diagnoses Squamous cell carcinoma of oropharynx C10.9 Feeding difficulty R63.3 Hypertension I10 COPD (chronic obstructive pulmonary disease) J44.9 Anxiety F41.9 BPH (benign prostatic hyperplasia) N40.0 Rheumatoid arthritis M06.9
--- NOTE | 2020-07-11 09:50 | PM.OP ---
Operative Report Date of procedure: July 11, 2020 Pre-op Diagnosis: Oropharyngeal cancer Post-op diagnosis: same Procedure Done: Right subclavian vein PowerPort placement Peg tube placement 20 Swiss and skin level is at 2-3 cm Implants: Right subclavian PowerPort and a PEG tube. Surgeon: Travis Vang Road Mixer Operator: Road Mixer Operator surgeon Dr. Cesar ENT please find separate dictation for tracheostomy per ENT report Surgical techs Alfred and Jerri hazardous materials waste technician Evie and Sierra Circulating nurses Ebony and Chary Anesthesia: General (Matt Gibson and Dr. Powell/general inhalational anesthesia via 8 Swiss Shiley placed by ENT service and inflated up to 10 cc) Estimated blood loss (mL): 20 Condition: stable Disposition: ICU Procedure: Patient was identified in the holding area and taken to the operative room and placed in supine position, multiple attempts were tried by anesthesia team to intubate the patient yet because of the oropharyngeal growth and the potential tendency to bleed that was aborted and ENT service Dr. Cesar was already on board and he attempted intubation as well but that was not successful.at this point it was deemed necessarily to perform an emergency tracheostomy.Attention was deviated towards tracheostomy on emergency basis after contacting Ilene patient's daughter intraoperatively. Please find separate dictation for tracheostomy placement by Dr. Cesar Patient received inhalational anesthesia via the tracheostomy,both arms maintained to be tucked,Time-out was done verifying the patient's name/date of /planned procedure and destination after the procedure, all were in agreement. SCDs confirmed to be functioning, preoperative antibiotics administered per protocol, and beta sarai protocol was confirmed, appropriate positioning of the patient was done by me. Medications were reviewed to assess for anticoagulant usage. Risks and benefits and prevention of central line associated blood stream infection (CLABSI) were discussed with the patient/CPOA, and a consent was obtained. Monitors were in place and monitored throughout the procedure. All necessary supplies were available prior to start. Hand hygiene was completed prior to starting. Maximum barrier technique was utilized including a sterile gown, sterile gloves with a hat and mask. Site was was prepped with [chlorhexidine] and a full body drape was placed. 5 mL of 2% lidocaine was injected into the skin with a 25 gauge needle. Prep& drape was done under the usual sterile technique with respect to the tracheostomy was kept away from the sterile field, lidocaine 2% was injected at the site of the stick, started by right subclavian vein stick that retrieved venous blood was obtained from the first stick, a guidewire was then threaded and under the guidance of fluoroscopy, there was some PVCs and the wire was pulled out some and PVCs were gone. position was confirmed to be in the IVC At that point the guidewire was secured to the drapes with a hemostat and the needle was taken out, attention was then deviated towards creation of a pocket for the port were lidocaine 2% was injected using an 15 blade knife skin incision was created dissection using the Bovie to create a pocket for the Port-A-Cath to be accommodated, hemostasis was secured, after the port being appropriately flushed it was inserted into the pocket and a tunneler was used to accommodate the catheter of the port cath to be delivered through the incision first created at the site of the stick, at that point under fluoroscopy an estimated length was measured for the catheter and was cut at the designed level, followed by that a dilator with the sheath introduced onto the guidewire the dilator and the wire were retrieved and the catheter of the port was introduced via the sheath where it was peeled off and the catheter maintained to be in the SVC that was confirmed with fluoroscopy, and the fluoroscopy interpretation was done by me throughout the entire procedure. The port was kept in place in its pocket, 3-0 Vicryl deep subdermal interrupted sutures, skin was then closed by 4-0 Monocryl as subcuticular closure. The stick site was closed by 4-0 Monocryl and Dermabond was used followed by dressing. Position of the catheter was checked with in intraoperative chest x-ray and it was in good position without evidence of pneumothorax Attention now was deviated down to PEG placement and continue to make sure that the tracheostomy is secured. Started by introducing the EGD via the mouth under direct visualization, the patient was continuously monitored via cardiac/vascular sonographer, oropharyngeal growth was identified and there was signs of minimal oozing but there is no ongoing bleeding.I was able to assess the esophagus stomach and duodenum till the second part, there was some altered blood in the stomach and esophagus. I was able to identify a good light reflex through the anterior abdominal wall, corresponding to appropriate indentation of the examining finger Prep and drape of the anterior abdominal wall was done under the usual sterile technique, sterile gowns and gloves were used, lidocaine was infiltrated at the site of the needle insertion, my community program assistant held onto the EGD,under direct visualization a needle with the sheath was inserted by me that come with the PEG kit, once the needle and catheter were inserted into the inflated stomach, a needle was taken out, and through the catheter the blue loop wire introduced through the catheter, and via the working channel of the EGD, the retrieval device was inserted under direct visualization, the blue loop was caught by the retrieval device, at this point the scope was taken out and a firm sausage inspector was continued to be applied onto the blue loop wire, the blue loop was then released and the PEG tube was tightened to it outside the patient's mouth, and with the remaining of the blue loop wire was Outside the abdominal wall, I was able to pull the PEG down gently after appropriate lubrication all the way to the stomach,and have it placed in a good position at the level of 2-3 cm at the skin. The EGD was reintroduced by me without difficulty there was no evidence of bleeding, good spinning of the PEG tube was witnessed. The scope was retrieved under direct visualization and gas was deflated,no biopsies were obtained at that point. The PEG tube base and clamp were applied and the PEG tube was connected to gravity All count was completed for both procedures and was correct. Patient tolerated the procedure well and was taken directly to the ICU in stable condition I was present for the whole entire procedure Patient tolerated the procedur well Count was correct at the end of the procedure I was present for the whole entire procedure Associated Problem List Diagnoses (1) Tracheostomy care: (2) Feeding difficulty: (3) Squamous cell carcinoma of oropharynx:
[2020-07-11] MEDS: sodium chloride 0.9% 1,000 ML 50 ML IV (09:58)
[2020-07-11] MEDS: famotidine 20 mg/2 mL INJ IVP ×2 (11:21→22:49)
--- NOTE | 2020-07-11 11:50 | P.OP_ITS ---
Operative Report Date of procedure: July 11, 2020 Pre-op Diagnosis: Oropharyngeal cancer with threatened airway Post-op diagnosis: same Post-op Findings: Large oralpharyngeal tumor extending into the right pyriform sinus Procedure Done: Direct Laryngoscopy Tracheotomy Pathology: none sent Surgeon: Pablito Cesar Program Assistant: Aaron Quevedo Anesthesia: General Estimated blood loss (mL): 25 IV fluids (mL): 1,000 Complications: None Findings: Large, partially obstructing right oral pharyngeal tumor extending into the right pyriform sinus and distorting the airway Condition: stable Disposition: ICU Brief History: 70 yo wm with a h/o a large oral pharyngeal tumor who presents for PEG and Port placement with difficult airway Procedure: The patient was then defined the preoperative area was taken to the operating room where he was placed on the operating table in supine position and anesthesia was obtained with general mask anesthesia. Anesthesia and ENT were unable to intubate the patient so we made a decision to perform tracheotomy to secure the airway prior to PEG and port placement. A direct laryngoscopy was performed with the findings noted above. We contacted patient's daughter and d iscussed tracheotomy with her at length - she agreed and gave permission to proceed. At this point a vertical incision was drawn out on the patient's lower midline neck just above the sternal notch. This area was injected local anesthesia and the patient was then prepped and draped in usual sterile fashion. The incision was made in the skin with a 15 blade was carried down through subcutaneous tissue with surgical electrocautery. The [employer] retractors were used to retract the soft tissues laterally until the airway was identified both visually and to palpation. The thyroid isthmus was elevated off of the trachea and the harmonic scalpel was used to divide the thyroid isthmus. At this point the third tracheal ring was identified and the anterior portion was removed with an 11 blade. At this point a #8 tracheotomy tube was placed in the trachea and was confirmed with CO2. At this point the tracheotomy tube was secured in place with 0 Prolene sutures on the skin and a neck strap. Gelfoam soaked in thrombin was placed in the trachea around the wound and the procedure was terminated. At this point control of the patient was returned to anesthesia and the port and PEG placement procedures were completed. There were no operative or anesthetic complications to this point in surgery.
--- NOTE | 2020-07-11 13:23 | PM.PACU ---
PACU note PACU note: Patient required tracheotomy after unsuccessful attempts at intubation by anesthesia and ENT. Patient's airway is highly friable and a fair amount of bleeding was occurring. Patient doing well in ICU. Awake, writing notes. Wants to eat and drink and go home. Post-Anesthesia Exam: awake and vital signs stable Disposition: admitted and other (to icu)
[2020-07-11] MEDS: morphine 4 mg/mL SDV 1 mL 2 MG IVP ×2 (14:32→22:53)
[2020-07-11] MEDS: LORazepam 2 mg/mL INJ 1 mL 0.5 MG IVP (17:41)
--- NOTE | 2020-07-11 18:41 | P.PN_ITS ---
Subjective Subjective: Interval history: 70 yo wm who is night of surgery s/p tracheotomy. The patient is without c/o. Vitals/I&O/Wt Last Vital Signs Temp 99 F 07/11/20 17:00 Pulse 93 07/11/20 17:00 Resp 19 H 07/11/20 17:00 BP 143/80 07/11/20 17:00 Pulse Ox 95 07/11/20 17:00 07/11/20 07/11/20 07/11/20 06:59 14:59 22:59 Intake Total 100 / 100 2049 / 2049 50 / 2100 Output Total 325 / 325 425 / 750 Balance 100 / 100 1725 / 1725 -375 / 1350 Weight last 48 hrs Weight 77.111 kg Weight 77.111 kg Physical Exam Const: COMMON NORMALS: no acute distress, average body habitus and patient oriented x3 HENMT: COMMON NORMALS: normocephalic, external ears normal and Normal external nose present HEAD & SCALP: normal to inspection and normocephalic FACE & SINUS: normal facial exam NOSE: Normal external nose present EXTERNAL EAR: Yes external ears normal Eye: COMMON NORMALS: EOMs intact bilaterally and conjunctivae normal GENERAL EYE: appearance normal, both eyes and all related structures CONJUNCTIVA: Yes conjunctivae normal SCLERA: sclerae normal Neck/C-Spine: COMMON NORMALS: full ROM and no lymphadenopathy GENERAL: Yes other (The tracheotomy tube is in place. There is no d/c from the wound) Chest: COMMONS NORMALS: normal inspection of the chest Resp: COMMON NORMALS: normal respiratory effort Neuro: COMMON NORMALS: patient oriented x3 A&P Additional A&P Information Impression: Night of surgery s/p tracheotomy doing well from this standpoint Plan: Routine trach care; we will change the trach for the first time on POD #6/7; anticipate d/c after this if the patient's home health care and DME can be arranged by that time. Attestations Medical Necessity Statement*: I was consulted to help secure the patient's airway Coding Level of Care Code Acute Graphite Pan Drier Tender for Agustin Aaron
--- NOTE | 2020-07-11 19:31 | PC.NURSE ---
Shift summary: Pt has fresh trach, on 35% HAG, secretions and coughing has lessened. He blows it off regularly, his sat will drop to 87%, they immediately climb back after replacing Humidified air back on. Port implantation area and dressing unremarkable. PEG has no issues , Abdominal binder on. Pt able to make his needs know with gestures and writing. He has used the urinal [address] Cesar did rounding this evening, Pt will be in hospital for several days per him. Uncuffed trach size 8, and obturator at bedside. Report given to YANCY Godwin.
[2020-07-12] VITALS (28 sets, daily range): BP systolic 124–154; BP diastolic 67–120; PULSE 80–95; RESP 16–31; TEMP 36.7–37.3; O2SAT 89–98
[2020-07-12] MEDS: LORazepam 2 mg/mL INJ 1 mL 0.5 MG IVP ×2 (00:07→10:54)
[2020-07-12] MEDS: oxyCODONE 5 mg IR Tab/Cap 10 MG PO ×4 (00:08→15:09)
[2020-07-12 00:37] LABS: Anion Gap 13.7 (5-19); Blood Urea Nitrogen 10 mg/dL (8-23); Calcium 9.5 mg/dL (8.5-10.5); Carbon Dioxide 29 mmol/L (22-29); Chloride 97 mmol/L (98-107); Creatinine Clr Calc Pharmacy 91.3802; Glucose 122 mg/dL (65-115); Osmolality Calculated 280 mOsm/kg (285-295); Potassium 4.7 mmol/L (3.5-5.1); Sodium 135 mmol/L (136-145)
--- NOTE | 2020-07-12 05:22 | PM.PN ---
Subjective Subjective: Interval history: 70 yo wm who is POD #1 s/p tracheotomy. The patient is doing well from this standpoint. There are no c/o. Vitals/I&O/Wt Last Vital Signs Temp 98.0 F 07/12/20 00:19 Pulse 80 07/12/20 00:00 Resp 16 07/12/20 00:08 BP 148/76 07/12/20 00:00 Pulse Ox 93 07/12/20 00:00 07/11/20 07/11/20 07/12/20 14:59 22:59 06:59 Intake Total 2049 / 2049 1050 / 3100 50 / 3150 Output Total 325 / 325 875 / 1200 150 / 1350 Balance 1725 / 1725 175 / 1900 -100 / 1800 Weight last 48 hrs Weight 77.111 kg Weight 77.111 kg Physical Exam Const: COMMON NORMALS: no acute distress and healthy appearing HENMT: COMMON NORMALS: normocephalic and Normal external nose present HEAD & SCALP: normocephalic NOSE: Normal external nose present Eye: COMMON NORMALS: EOMs intact bilaterally and conjunctivae normal CONJUNCTIVA: Yes conjunctivae normal Neck/C-Spine: COMMON NORMALS: no lymphadenopathy GENERAL: Yes other (The trach site is clean, dry, and without erythema or induration.) Lymph: LYMPHATIC: no lymphadenopathy noted Data : 07/11/20 23:53 A&P Additional A&P Information Impression: 1) POD #1 s/p tracheotomy doing well from this standpoint 2) 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 Attestations Medical Necessity Statement*: I was consulted to assist in airway management Coding Level of Care Code Acute Senior Automation Engineer for Agustin Aaron
[2020-07-12] MEDS: ipratropium-albuterol 3 mL Neb INHALATION ×3 (05:45→20:40)
--- NOTE | 2020-07-12 05:45 | PM.PN ---
Subjective Subjective: Interval history: Patient undergone emergency tracheostomy yesterday in the OR and elective placement of right upper chest Port-A-Cath via the right subclavian vein and PEG tube placement.No acute events overnight pain is controlled Requiring suction of the Tracheostomy every 3 hours per nursing staff G-tube to gravity Total darainage 150 mL gastric content Vitals/I&O/Wt Last Vital Signs Temp 98.0 F 07/12/20 04:00 Pulse 88 07/12/20 05:00 Resp 31 H 07/12/20 05:00 BP 130/70 07/12/20 05:00 Pulse Ox 93 07/12/20 05:00 07/11/20 07/11/20 07/12/20 14:59 22:59 06:59 Intake Total 2049 / 2049 1050 / 3100 50 / 3150 Output Total 325 / 325 875 / 1200 300 / 1500 Balance 1725 / 1725 175 / 1900 -250 / 1650 Weight last 48 hrs Weight 170 lb Weight 170 lb Physical Exam Narrative: EXAM NARRATIVE: Patient is conscious alert oriented X3 Resting comfortably in bed BMI 25 Head and neck examination PERRLA no masses no cervical lymphadenopathy no jaundice Tracheostomy in place without evidence of bleeding or leak Cardiac examination audible S1-S2 no murmurs no gallops no arrhythmias Chest wheezes appreciated more on the right side,no surgical emphysema Right upper chest Port-A-Cath in place without complication Abdomen nontender nondistended soft no organomegaly guarding or rigidity/no signs of peritonitis PEG tube in place and skin level 2/3 cm with gastric content in draining bag Data : 07/12/20 05:35 07/11/20 23:53 A&P Assessment and plan (1) Squamous cell carcinoma of oropharynx: Status post emergency tracheostomy, elective Port-A-Cath placement via right subclavian vein and PEG tube placement. 07/11/2020. Plan of care: continue tracheostomy care per Dr. Cesar service Can start feeding through PEG tube today and will obtain nutrition consultation From surgical standpoint of view patient can be discharged home today with home health services, briefcase sewer already been contacted and on board for preparing the patient for discharge and communicating with the family. [facility] with the plan of care as the patient I appreciate Dr. Cesar's and Dr. Hurtado's input with regard Mr. Zacarias's care Review the pathology with the patient Assurance and education All questions have been answered Status: Acute Attestations Medical Necessity Statement*: Observation status, awaiting briefcase sewer's input with regard to patient's discharge and setting home health for him today. Time Spent in Patient Care: (>than 50% of time spent in counselling and/or direct pt care on unit). Coding Level of Care Code Acute Cartography/Mapping Technician for [facility] Diagnoses Squamous cell carcinoma of oropharynx C10.9
[2020-07-12 05:51] LABS: Hematocrit 35.4 % (42.0-52.0); Hemoglobin 11.3 g/dL (11.7-16.6)
[2020-07-12] MEDS: sodium chloride 0.9% 1,000 ML 50 ML IV (06:25)
--- NOTE | 2020-07-12 06:45 | ANE.PACU2 ---
Inpatient post-anesthesia follow up: Vital signs: Temperature 98.0 F Pulse Rate 86 Respiratory Rate 22 Blood Pressure 130/70 Pulse Oximetry 97 Oxygen Delivery Me thod [ HAG Current Rate & Del loida] Oxygen Delivery Me thod HAG Oxygen Flow Rate [ Current Rate 15 & Delivery] Oxygen Flow Rate 10 Fraction of Inspir ed Oxygen 35 Hydration adequate: Yes Nausea and vomiting: No Pain level: 1 Mental status: Baseline
[2020-07-12 06:55] LABS: Anion Gap 11.8 (5-19); Blood Urea Nitrogen 11 mg/dL (8-23); Calcium 9.2 mg/dL (8.5-10.5); Carbon Dioxide 31 mmol/L (22-29); Chloride 97 mmol/L (98-107); Glucose 121 mg/dL (65-115); Osmolality Calculated 281 mOsm/kg (285-295); Potassium 4.8 mmol/L (3.5-5.1); Sodium 135 mmol/L (136-145)
[2020-07-12] MEDS: nicotine 21 mg Patch 1 PATCH TRANSDERMA (10:46)
[2020-07-12] MEDS: famotidine 20 mg/2 mL INJ IVP ×2 (10:51→20:37)
--- NOTE | 2020-07-12 12:38 | P.PN_ITS ---
Subjective Subjective: Interval history: Patient awake in bed at time of exam this morning. Tracheostomy in place, he shook his head no to having any chest pain or abdominal pain. Discussed with him plan for continued hospitalization for close monitoring of new tracheostomy Vitals/I&O/Wt Last Vital Signs Temp 98.0 F 07/12/20 04:00 Pulse 85 07/12/20 08:33 Resp 22 H 07/12/20 08:40 BP 130/70 07/12/20 05:00 Pulse Ox 94 07/12/20 08:40 07/11/20 07/12/20 07/12/20 22:59 06:59 14:59 Intake Total 1050 / 3100 1050 / 4150 Output Total 875 / 1200 300 / 1500 Balance 175 / 1900 750 / 2650 Weight last 48 hrs Weight 84.504 kg Weight 77.111 kg Weight 77.111 kg Physical Exam Const: OTHER: Awake and alert HENMT: OTHER: Tracheostomy in place Eye: COMMON NORMALS: Equal, round and reactive pupils present PUPIL: Yes Equal, round and reactive pupils present Neck/C-Spine: OTHER: Tracheostomy in place Resp: OTHER: Tracheostomy in place. Lungs clear to auscultation, no appreciable wheezing or rhonchi Cardio: COMMON NORMALS: regular rate, regular rhythm and No murmurs present (Cardio) RATE: regular rate RHYTHM: regular rhythm GI: COMMON NORMALS: Soft to palpation and non-tender INSPECTION: No abdominal distension AUSCULTATION: Yes normoactive bowel sounds PALPATION: Yes Soft to palpation OTHER: PEG tube in place Extremity: COMMON NORMALS: no clubbing, cyanosis or edema Neuro: COMMON NORMALS: CN's II-XII intact bilaterally and no focal motor deficits OTHER: Tracheostomy in place, follows commands and shakes his head yes and no to questions appropriately Psych: OTHER: Cooperative, calm Skin: COMMON NORMALS: no rashes or lesions noted GENERAL SKIN EXAM: no rashes or lesions noted Data : 07/12/20 05:35 07/12/20 06:32 A&P Assessment and plan (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 Vang and Dr. Cesar, POD #1 We will follow-up with postoperative care per surgical recommendations Status: Acute (2) Feeding difficulty: Patient with difficulty with feeding due to large oropharyngeal cancer, PEG tube feeding recommendations Follow-up with general surgery, Dr. Vang Status: Acute (3) Hypertension: Restart amlodipine 2.5 mg daily Status: Acute (4) COPD (chronic obstructive pulmonary disease): With continued tobacco abuse, nicotine patch ordered Status post tracheostomy Respiratory therapy to assess and treat Oxygen per protocol Status: Acute (5) Anxiety: Will provide Ativan during hospitalization as needed, does not appear to be on any home medications for anxiety Status: Acute (6) BPH (benign prostatic hyperplasia): Continue home Flomax 0.4 mg daily Status: Acute (7) Rheumatoid arthritis: Previously on methotrexate, recommendation to be stopped by Dr. Krishnamurthy, oncology Status: Acute Additional A&P Information Alcohol abuse: Continue close monitoring and placed on CIWA protocol with Ativan DVT prophylaxis: SCDs, no pharmacologic prophylaxis due to tracheostomy and PEG tube placement along with Port-A-Cath placement Diet: N.p.o., start tube feeds today per surgery recommendations CODE STATUS: Full code Attestations Medical Necessity Statement*: Patient requires hospitalization status post tra cheostomy, PEG tube and Port-A-Cath placement with oropharyngeal cancer Coding Level of Care Code Acute Resource Conservation Manager for [facility] Diagnoses Squamous cell carcinoma of oropharynx C10.9 Feeding difficulty R63.3 Hypertension I10 COPD (chronic obstructive pulmonary disease) J44.9 Anxiety F41.9 BPH (benign prostatic hyperplasia) N40.0 Rheumatoid arthritis M06.9
--- NOTE | 2020-07-12 12:50 | PC.NURSE ---
Report faxed to [employer].
[2020-07-12] MEDS: morphine 4 mg/mL SDV 1 mL 2 MG IVP ×2 (13:03→16:51)
--- NOTE | 2020-07-12 14:20 | PC.NURSE ---
Pt sent to oncology treatment at the [facility] via EMS. Obturator and empty syringe placed in a ziplock bag and attached to pt's top blanket; EMS reminded to keep it with pt at all times. All belongings and respiratory supplies sent upstairs to room 269, where pt will be transferred once his oncology treatment is finished. VSS and no s/s distress upon transfer.
--- NOTE | 2020-07-12 16:48 | PC.RESP ---
Smoking Cessation information sent to patient.
--- NOTE | 2020-07-12 17:56 | PC.NURSE ---
Rcvd verbal order from Dr Vang to administer 1 bottle of Ensure Plus in PEG tube with each meal. This is until Nutrition meets with patient. And patient is to remain NPO with Ice Chips.
--- NOTE | 2020-07-12 18:14 | PC.NURSE ---
administered 240ml Ensure Plus in PEG tube as instructed by Dr Vang. Flushed with 200ml of water.
[2020-07-12] MEDS: HYDROmorphone 1 mg/mL INJ 1 mL 2 MG IVP (20:36)
[2020-07-13] VITALS (14 sets, daily range): BP systolic 137–158; BP diastolic 70–82; PULSE 71–98; RESP 16–20; TEMP 36.8–37.1; O2SAT 92–98; BMI 25.2
[2020-07-13] MEDS: morphine 4 mg/mL SDV 1 mL 2 MG IVP ×3 (00:11→10:08)
[2020-07-13] MEDS: ipratropium-albuterol 3 mL Neb INHALATION ×3 (05:10→21:15)
--- NOTE | 2020-07-13 05:18 | PM.PN ---
Subjective Subjective: Interval history: 70 yo wm who is POD #2 s/p tracheotomy doing well from this standpoint. The patient c/o right sided neck pain, but denies any significant periincisional neck pain. The patient is o/w without c/o. Vitals/I&O/Wt Last Vital Signs Temp 98.3 F 07/13/20 04:50 Pulse 71 07/13/20 04:50 Resp 18 07/13/20 04:50 BP 142/70 07/13/20 04:50 Pulse Ox 98 07/13/20 04:50 07/12/20 07/12/20 07/13/20 14:59 22:59 06:59 Intake Total 100 / 100 955 / 1055 Output Total 350 / 350 200 / 550 600 / 1150 Balance -250 / -250 755 / 505 -600 / -95 Weight last 48 hrs Weight 84.504 kg Weight 77.111 kg Weight 77.111 kg Physical Exam Const: COMMON NORMALS: no acute distress and patient oriented x3 HENMT: COMMON NORMALS: normocephalic and external ears normal HEAD & SCALP: normocephalic EXTERNAL EAR: Yes external ears normal Eye: COMMON NORMALS: EOMs intact bilaterally and conjunctivae normal CONJUNCTIVA: Yes conjunctivae normal Neck/C-Spine: COMMON NORMALS: no lymphadenopathy GENERAL: Yes normal visual inspection, Yes trachea midline and Yes other (The trach site is clean and without erythema.) Lymph: LYMPHATIC: no lymphadenopathy noted Neuro: COMMON NORMALS: patient oriented x3 Data : 07/12/20 05:35 07/12/20 06:32 A&P Additional A&P Information Impression: 1) 70 yo wm who is POD #2 s/p tracheotomy doing well s/p tracheotomy 2) T4/Stage IV Squamous Cell Carcinoma of the right oral pharynx Plan: 1) Continue current trach care; plan first trach change on POD #6/7; the patient will need daily home health care visits for 2 weeks post discharge, a home suction unit, and home humidification for his trach 2) The patient is to resume Chemo/XRT after discharge Attestations Medical Necessity Statement*: The patient requires admission until his airway is stable. Coding Level of Care Code Acute Security Patrol Officer for Agustin Aaron
--- NOTE | 2020-07-13 06:18 | PM.PN ---
Subjective Subjective: Interval history: No acute events over night Nutrition consultation on board, patient was started on Ensure Plus can 3 times a day till dietitian evaluate the patient and set goals. Vitals/I&O/Wt Last Vital Signs Temp 98.3 F 07/13/20 04:50 Pulse 90 07/13/20 05:15 Resp 19 H 07/13/20 05:10 BP 142/70 07/13/20 04:50 Pulse Ox 92 07/13/20 05:10 07/12/20 07/12/20 07/13/20 14:59 22:59 06:59 Intake Total 100 / 100 955 / 1055 Output Total 350 / 350 200 / 550 600 / 1150 Balance -250 / -250 755 / 505 -600 / -95 Weight last 48 hrs Weight 186 lb 4.8 oz Weight 186 lb 4.8 oz Weight 170 lb Physical Exam Narrative: EXAM NARRATIVE: Patient is conscious alert oriented X3 Resting comfortably in bed BMI 25 Head and neck examination PERRLA no masses no cervical lymphadenopathy no jaundice Tracheostomy in place without evidence of bleeding or leak Cardiac examination audible S1-S2 no murmurs no gallops no arrhythmias Chest expiratory wheezes appreciated more on the right side,no surgical emphysema Right upper chest Port-A-Cath in place without complication Abdomen nontender nondistended soft no organomegaly guarding or rigidity/no signs of peritonitis PEG tube in place and skin level 2/3 cm with gastric content in draining bag Data : 07/13/20 06:40 07/13/20 06:40 A&P Assessment and plan (1) Squamous cell carcinoma of oropharynx: Status post emergency tracheostomy, elective Port-A-Cath placement via right subclavian vein and PEG tube placement. 07/11/2020. Plan of care: Continue tracheostomy care per Dr. Cesar Continue tube feeds We will continue coordinating with Dr. Krishnamurthy and Dr. Lozano I appreciate Dr. Cesar's and Dr. Hurtado's input with regard Mr. Zacarias's care After discussing the case further with Dr. Cesar he agreed kindly to have the patient transferred to his service and surgery will follow as a consult. Assurance and education All questions have been answered Status: Acute Attestations Medical Necessity Statement*: Observation status,awaiting case finishing machine adjuster's input with regard to patient's discharge and setting home health. Time Spent in Patient Care: (>than 50% of time spent in counselling and/or direct pt care on unit). Coding Level of Care Code Acute Wedding Planning Internship for [facility] Diagnoses Squamous cell carcinoma of oropharynx C10.9
[2020-07-13 07:01] LABS: Hematocrit 36.4 % (42.0-52.0); Hemoglobin 11.4 g/dL (11.7-16.6)
[2020-07-13 08:16] LABS: Anion Gap 13.2 (5-19); Blood Urea Nitrogen 8 mg/dL (8-23); Calcium 9.3 mg/dL (8.5-10.5); Carbon Dioxide 34 mmol/L (22-29); Chloride 94 mmol/L (98-107); Glucose 123 mg/dL (65-115); Osmolality Calculated 284 mOsm/kg (285-295); Potassium 4.2 mmol/L (3.5-5.1); Sodium 137 mmol/L (136-145)
--- NOTE | 2020-07-13 08:33 | PC.NUTR ---
NUTR TF RECOMMENDATIONS: Jevity with continuous feed of 65 ml/hr providing 1872 kcal (96%), 86 g PRO (101%), and 1259 ml fluid (64%)(%NEEDS). Suggest starting TF at 35 ml/hr and increase by 10 ml Q6H as tolerated till goal rate is met. Suggest H2O flushes of 100 ml Q4H to approach fluid needs or per physician. BOLUS: Jevity with daily goal of 6-7 cans over 3 feedings per day with H2O flushes of 1 cup after each feeding.
[2020-07-13] MEDS: amlodipine 5 mg Tablet 2.5 MG PO (08:38)
[2020-07-13] MEDS: multivitamin therapeutic Tablet 1 TAB PO (08:38)
[2020-07-13] MEDS: finasteride 5 mg Tablet PO (08:38)
[2020-07-13] MEDS: thiamine 100 mg Tablet PO (08:39)
[2020-07-13] MEDS: tamsulosin 0.4 mg Capsule PO (08:39)
[2020-07-13] MEDS: folic acid 1 mg Tablet PO (08:40)
[2020-07-13] MEDS: oxyCODONE 5 mg IR Tab/Cap 10 MG PO ×2 (08:40→20:00)
[2020-07-13] MEDS: nicotine 21 mg Patch 1 PATCH TRANSDERMA (08:41)
[2020-07-13] MEDS: sodium chloride 0.9% 1,000 ML 50 ML IV (08:41)
--- NOTE | 2020-07-13 10:10 | PC.NURSE ---
Pt to [facility] with ambulance personnel for radiation.
--- NOTE | 2020-07-13 10:54 | P.PN_ITS ---
Subjective Subjective: Interval history: Patient awake in bed at time of exam. In the right side of his neck. Also reporting that he was feeling hungry today. Discussed with him plan to start tube feeds. Also discussion with him via written conversation of plan for chemotherapy and radiation per Dr. Krishnamurthy and Dr. Lozano Vitals/I&O/Wt Last Vital Signs Temp 98.8 F 07/13/20 07:54 Pulse 90 07/13/20 07:54 Resp 16 07/13/20 10:08 BP 155/82 07/13/20 07:54 Pulse Ox 94 07/13/20 07:54 07/12/20 07/13/20 07/13/20 22:59 06:59 14:59 Intake Total 955 / 1055 285 / 1340 Output Total 200 / 550 600 / 1150 450 / 450 Balance 755 / 505 -315 / 190 -450 / -450 Weight last 48 hrs Weight 84.504 kg Weight 84.504 kg Physical Exam Const: OTHER: Awake and alert HENMT: OTHER: Tracheostomy in place Eye: COMMON NORMALS: Equal, round and reactive pupils present PUPIL: Yes Equal, round and reactive pupils present Neck/C-Spine: OTHER: Tracheostomy in place Resp: OTHER: Tracheostomy in place. Lungs clear to auscultation, no appreciable wheezing or rhonchi Cardio: COMMON NORMALS: regular rate, regular rhythm and No murmurs present (Cardio) RATE: regular rate RHYTHM: regular rhythm GI: COMMON NORMALS: Soft to palpation and non-tender INSPECTION: No abdominal distension AUSCULTATION: Yes normoactive bowel sounds PALPATION: Yes Soft to palpation OTHER: PEG tube in place Extremity: COMMON NORMALS: no clubbing, cyanosis or edema Neuro: COMMON NORMALS: CN's II-XII intact bilaterally and no focal motor deficits OTHER: Tracheostomy in place, follows commands and shakes his head yes and no to questions appropriately and communicates via pen and paper Psych: OTHER: Cooperative, calm Skin: COMMON NORMALS: no rashes or lesions noted GENERAL SKIN EXAM: no rashes or lesions noted Data : 07/13/20 06:40 07/13/20 06:40 A&P Assessment and plan (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 Vang and Dr. Cesar, POD #2 We will follow-up with postoperative care per surgical recommendations Chemotherapy and radiation per Dr. Krishnamurthy and Dr. Lozano Status: Acute (2) Feeding difficulty: Patient with difficulty with feeding due to large oropharyngeal cancer, PEG tube feeding recommendations Follow-up with general surgery, Dr. Vang Status: Acute (3) Hypertension: Continue amlodipine 2.5 mg daily Status: Acute (4) COPD (chronic obstructive pulmonary disease): With continued tobacco abuse, nicotine patch ordered Status post tracheostomy Respiratory therapy to assess and treat Oxygen per protocol Status: Acute (5) Anxiety: Will provide Ativan during hospitalization as needed, does not appear to be on any home medications for anxiety Status: Acute (6) BPH (benign prostatic hyperplasia): Continue home Flomax 0.4 mg daily Status: Acute (7) Rheumatoid arthritis: Previously on methotrexate, recommendation to be stopped by Dr. Krishnamurthy, oncology Status: Acute Additional A&P Information Alcohol abuse: Continue close monitoring and placed on CIWA protocol with Ativan DVT prophylaxis: SCDs, will follow up with recommendations from surgery team as to when it is safe to start pharmacologic ppx Diet: Tube feeds CODE STATUS: Full code Attestations Medical Necessity Statement*: hospitalization POD#2 tracheostomy Coding Level of Care Code Acute Reconstructive Dentist for [facility] Diagnoses Squamous cell carcinoma of oropharynx C10.9 Feeding difficulty R63.3 Hypertension I10 COPD (chronic obstructive pulmonary disease) J44.9 Anxiety F41.9 BPH (benign prostatic hyperplasia) N40.0 Rheumatoid arthritis M06.9
[2020-07-13] MEDS: sodium chloride 0.9% 250 ML 75 ML IV (11:00)
[2020-07-13] MEDS: sodium chlor 0.9% + KCl 20 mEq 20 MEQ/1,000 ML BAG 500 MEQ IV (14:40)
[2020-07-13] MEDS: FUROsemide 10 mg/mL SDV 2mL 20 MG IV (14:40)
--- NOTE | 2020-07-13 17:24 | PC.NURSE ---
Called José Miguel combine driver, to clarify how many mL per feed pt needs to be given. Pt to receive 480 mL per feed, three times a day with 240 mL water flushes after each feed.
--- NOTE | 2020-07-13 18:12 | PC.NURSE ---
Shift Summary Pt received AM meds via PEG tube, tolerated well. Pt c/o severe pain, 10/, to right side of face and neck. The plan was to get pt on a schedule alternating Oxy IR and morphine. However, pt was taken to radiation and chemo and was off the floor for most of the day. Pt arrived back to [facility] around 1730. Tube feed of 480 mL Jevity was given and flushed with 240 mL water. Pt is currently tolerating well.
[2020-07-13] MEDS: famotidine 20 mg/2 mL INJ IVP (23:09)
[2020-07-14] VITALS (27 sets, daily range): BP systolic 103–172; BP diastolic 62–79; PULSE 64–94; RESP 5–25; TEMP 36.8–37; O2SAT 91–100
[2020-07-14] MEDS: morphine 4 mg/mL SDV 1 mL 2 MG IVP ×6 (02:26→21:20)
--- NOTE | 2020-07-14 05:47 | P.PN_ITS ---
Subjective Subjective: Interval history: 70 yo wm with a h/o a T4/Stage IV Right oral pharyngeal SCCA who is POD #3 s/p tracheotomy. The patient is doing well. He is learning to manage his own trach. Vitals/I&O/Wt Last Vital Signs Temp 98.2 F 07/14/20 04:34 Pulse 79 07/14/20 04:34 Resp 18 07/14/20 05:28 BP 142/73 07/14/20 04:34 Pulse Ox 94 07/14/20 04:34 07/13/20 07/13/20 07/14/20 14:59 22:59 06:59 Intake Total 300 / 300 845 / 1145 Output Total 970 / 970 320 / 1290 400 / 1690 Balance -670 / -670 525 / -145 -400 / -545 Weight last 48 hrs Weight 84.504 kg Weight 84.504 kg Physical Exam Const: COMMON NORMALS: no acute distress and average body habitus GENERAL APPEARANCE: cooperative and well developed HENMT: COMMON NORMALS: hearing grossly normal bilaterally and Normal external nose present HEAD & SCALP: normal to inspection FACE & SINUS: normal facial exam NOSE: Normal external nose present Eye: COMMON NORMALS: EOMs intact bilaterally, conjunctivae normal and no scleral icterus CONJUNCTIVA: Yes conjunctivae normal Neck/C-Spine: COMMON NORMALS: no lymphadenopathy and Thyroid normal GENERAL: Yes trachea midline and Yes other (The trach site is clean and without erythema. The trach tube is in place) THYROID: Thyroid normal Chest: COMMONS NORMALS: normal inspection of the chest and normal palpation of entire chest wall Resp: COMMON NORMALS: normal respiratory effort and clear to auscultation bilaterally AUSCULTATION: clear to auscultation bilaterally Cardio: COMMON NORMALS: regular rate and regular rhythm RATE: regular rate RHYTHM: regular rhythm GI: COMMON NORMALS: Normal to inspection, nondistended, normoactive bowel sounds present Extremity: COMMON NORMALS: normal to inspection Neuro: COMMON NORMALS: CN's II-XII intact bilaterally Psych: COMMON NORMALS: mental status grossly normal Skin: COMMON NORMALS: no rashes or lesions noted GENERAL SKIN EXAM: no rashes or lesions noted Data : 07/13/20 06:40 07/13/20 06:40 A&P Additional A&P Information Impression: 1) POD #3 s/p tracheotomy doing well from this standpoint 2) T4/Stage IV SCCA of the right oral pharynx - the patient is continuing his Chemo/XRT while on inpatient status Plan: 1) Continue the [facility] trach care; social and political studies professor is arranging for home health care daily for 2 weeks post d/c, home suction and humidification; RT to instruct the patient on trach care. 2) The patient is to continue his Chemo/XRT Attestations Medical Necessity Statement*: The patient requires inpatient status until trach site stable. Coding Level of Care Code Acute Tissue Recovery Technician for Agustin Aaron
[2020-07-14 06:11] LABS: Hematocrit 36.2 % (42.0-52.0); Hemoglobin 11.6 g/dL (11.7-16.6)
[2020-07-14 06:32] LABS: Anion Gap 10.5 (5-19); Blood Urea Nitrogen 12 mg/dL (8-23); Calcium 8.8 mg/dL (8.5-10.5); Carbon Dioxide 34 mmol/L (22-29); Chloride 95 mmol/L (98-107); Glucose 123 mg/dL (65-115); Osmolality Calculated 281 mOsm/kg (285-295); Potassium 4.5 mmol/L (3.5-5.1); Sodium 135 mmol/L (136-145)
[2020-07-14] MEDS: sodium chloride 0.9% 1,000 ML 50 ML IV (07:25)
[2020-07-14] MEDS: nicotine 21 mg Patch 1 PATCH TRANSDERMA (07:26)
[2020-07-14] MEDS: amlodipine 5 mg Tablet 2.5 MG PO (07:27)
[2020-07-14] MEDS: folic acid 1 mg Tablet PO (07:27)
[2020-07-14] MEDS: finasteride 5 mg Tablet PO (07:27)
[2020-07-14] MEDS: thiamine 100 mg Tablet PO (07:27)
[2020-07-14] MEDS: multivitamin therapeutic Tablet 1 TAB PO (07:27)
[2020-07-14] MEDS: oxyCODONE 5 mg IR Tab/Cap 10 MG PO (07:28)
[2020-07-14] MEDS: tamsulosin 0.4 mg Capsule PO (07:28)
[2020-07-14] MEDS: famotidine 20 mg/2 mL INJ IVP ×2 (09:56→22:54)
--- NOTE | 2020-07-14 10:08 | P.PN_ITS ---
Subjective Subjective: Interval history: Patient awake in bed at time of exam. He reported some continued pain in his right side. He stated no shortness of breath, no chest heaviness. Discussed with him plan for adjustment of pain medications today. Vitals/I&O/Wt Last Vital Signs Temp 98.5 F 07/14/20 08:20 Pulse 86 07/14/20 08:20 Resp 16 07/14/20 09:28 BP 141/67 07/14/20 08:20 Pulse Ox 94 07/14/20 08:20 07/13/20 07/14/20 07/14/20 22:59 06:59 14:59 Intake Total 845 / 1145 1000 / 2145 720 / 720 Output Total 320 / 1290 800 / 2090 200 / 200 Balance 525 / -145 200 / 55 520 / 520 Weight last 48 hrs Weight 82.242 kg Weight 84.504 kg Physical Exam Const: OTHER: Awake and alert HENMT: OTHER: Tracheostomy in place Eye: COMMON NORMALS: Equal, round and reactive pupils present PUPIL: Yes Equal, round and reactive pupils present Neck/C-Spine: OTHER: Tracheostomy in place Resp: OTHER: Tracheostomy in place. Lungs clear to auscultation, no appreciable wheezing or rhonchi Cardio: COMMON NORMALS: regular rate, regular rhythm and No murmurs present (Cardio) RATE: regular rate RHYTHM: regular rhythm GI: COMMON NORMALS: Soft to palpation and non-tender INSPECTION: No abdominal distension AUSCULTATION: Yes normoactive bowel sounds PALPATION: Yes Soft to palpation OTHER: PEG tube in place Extremity: COMMON NORMALS: no clubbing, cyanosis or edema Neuro: COMMON NORMALS: CN's II-XII intact bilaterally and no focal motor deficits OTHER: Tracheostomy in place, and communicates via pen and paper Psych: OTHER: Cooperative, calm Skin: COMMON NORMALS: no rashes or lesions noted GENERAL SKIN EXAM: no rashes or lesions noted Data : 07/14/20 05:24 07/14/20 05:24 A&P Assessment and plan (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 Vang and Dr. Cesar, POD #3 We will follow-up with postoperative care per surgical recommendations Chemotherapy and radiation per Dr. Krishnamurthy and Dr. Lozano Status: Acute (2) Feeding difficulty: Patient with difficulty with feeding due to large oropharyngeal cancer, PEG tube feeding recommendations Follow-up with general surgery, Dr. Vang Status: Acute (3) Hypertension: Continue amlodipine 2.5 mg daily Status: Acute (4) COPD (chronic obstructive pulmonary disease): With continued tobacco abuse, nicotine patch Respiratory therapy to assess and treat Oxygen per protocol Status: Acute (5) Anxiety: Ativan PRN Status: Acute (6) BPH (benign prostatic hyperplasia): Continue home Flomax 0.4 mg daily Status: Acute (7) Rheumatoid arthritis: Previously on methotrexate, recommendation to be stopped by Dr. Krishnamurthy, oncology Status: Acute Additional A&P Information Alcohol abuse: No evidence of alcohol with drawal, will discontinue CIWA protocol Postoperative pain along with pain secondary to oropharyngeal cancer: Increase oxycodone to 20 mg, addition of tramadol, morphine every 2 hours DVT prophylaxis: SCDs, will follow up with recommendations from surgery team as to when it is safe to start pharmacologic ppx Diet: Tube feeds CODE STATUS: Full code Attestations Medical Necessity Statement*: Patient requires hospitalization status post trach Coding Level of Care Code Acute Medical Claims Processor for Chg Fwd Diagnoses Squamous cell carcinoma of oropharynx C10.9 Feeding difficulty R63.3 Hypertension I10 COPD (chronic obstructive pulmonary disease) J44.9 Anxiety F41.9 BPH (benign prostatic hyperplasia) N40.0 Rheumatoid arthritis M06.9
--- NOTE | 2020-07-14 11:02 | PC.SOCIAL ---
IMM Update Pg. 2 of IMM updated and reviewed with patient who verbalized understanding. Copy provided.
[2020-07-14] MEDS: oxyCODONE 5 mg IR Tab/Cap 20 MG PO ×2 (13:14→22:58)
[2020-07-14 14:56] LABS: Glucose Point of Care 190 mg/dL (70-110)
[2020-07-14 15:01] LABS: ABG PH Result 7.36 (7.35-7.45); Arterial Blood Gas Hematocrit 37.8 % (42-52); Blood Gas Sample Type Arterial; HCO3 ABG 34.4 mmol/L (22-26)
--- NOTE | 2020-07-14 15:01 | PC.NURSE ---
CHANGE IN STATUS THIS NURSE WAS ROUNDING ON PATIENT AND FOUND PATIENT UNRESPONSIVE AND CYANOTIC. THIS NURSE IMMEDIATELY CHECKED FOR A PULSE AND FOUND A STRONG PULSE. CALLED FOR HELP AND A RAPID RESPONSE. THIS NURSE NOTICED THAT THE PATIENT'S BLOW-BY TUBE WAS NO LONGER CONNECTED. THIS NURSE CONNECTED IMMEDIATELY. VITALS WERE TAKEN AND VITALS STABLE BUT OXYGEN WAS 81% AND RISING. BEFORE PATIENT WAS TRANSFERRED FROM THE FLOOR, OXYGEN SATURATION WAS 95%. THIS NURSE HAS NOT HAD ANY TROUBLE WITH THE BLOW-BY STAYING ON TODAY. STUDENT NURSES ALONG WITH SHAHRZAD CHANDRA INSTRUCTOR INFORMED THIS NURSE THAT PATIENT MADE A GUN WITH HIS HAND AND POINTED IT TO HIS HEAD TWICE TODAY. DR. CAMPOS WAS NOTIFIED. DR. SYLVESTER IN THE ROOM ALONG WITH CARE TEAM. THIS NURSE CONTACTED DAUGHTER MARILYNN AND UPDATED HER ON PATIENT STATUS CHANGE. DAUGHTER WAS CALM AND UNDERSTANDING.
[2020-07-14 15:02] LABS: Blood Gas Operator Identificat GD; Blood Gas Sample Site Brachial, right; Oxygen Device VENT
[2020-07-14 15:03] LABS: ABG PCO2 61.3 mmHg (35-45)
--- NOTE | 2020-07-14 15:12 | PC.NURSE ---
1430 recd. from 2nd floor per be. bagging in progress. establishes eye contact when name called and follows commands. flat affect.
--- NOTE | 2020-07-14 15:29 | PC.NURSE ---
1500 vent 50%fios.
--- NOTE | 2020-07-14 18:05 | PM.PN ---
Subjective Subjective: Interval history: Patient through the day had issues with oxygenation and had to be transferred to the ICU. Currently on pressure support. Tube feeds started yesterday and tolerating well. Patient has started his chemotherapy and radiation as well. Vitals/I&O/Wt Last Vital Signs Temp 98.5 F 07/14/20 12:00 Pulse 76 07/14/20 15:00 Resp 17 07/14/20 17:56 BP 112/65 07/14/20 15:00 Pulse Ox 100 07/14/20 15:00 07/14/20 07/14/20 07/14/20 06:59 14:59 22:59 Intake Total 1000 / 2145 720 / 720 Output Total 800 / 2090 525 / 525 Balance 200 / 55 195 / 195 Weight last 48 hrs Weight 181 lb 5 oz Weight 186 lb 4.8 oz Physical Exam Narrative: EXAM NARRATIVE: Patient is conscious alert oriented X3 Resting comfortably in bed BMI [address] without evidence of bleeding or leak Right upper chest Port-A-Cath in place without complication Abdomen nontender nondistended soft no organomegaly guarding or rigidity/no signs of peritonitis PEG tube in place and skin level 2/3 cm with tube feeds are going. Data : 07/14/20 05:24 07/14/20 05:24 A&P Assessment and plan (1) Squamous cell carcinoma of oropharynx: Status post emergency tracheostomy, elective Port-A-Cath placement via right subclavian vein and PEG tube placement. 07/11/2020. Plan of care: Continue tracheostomy care per Dr. Cesar Continue tube feeds We will continue coordinating with Dr. Krishnamurthy and Dr. Lozano From general surgery standpoint of view there is not much to offer at this point please call for questions or concerns Am Happy to see the patient as an outpatient on PRN basis I did update Ms. Odom patient's daughter and answered all her questions in the presence of patient's caring nurse Daria as well as patient's concerns and questions. Assurance and education All questions have been answered Status: Acute Attestations Medical Necessity Statement*: Inpatient hospitalization past 2 midnights for tracheostomy care per ENT service Time Spent in Patient Care: (>than 50% of time spent in counselling and/or direct pt care on unit). Coding Level of Care Code Acute Workers Compensation Consultant for Chg Fwd Diagnoses Squamous cell carcinoma of oropharynx C10.9
[2020-07-14] MEDS: ipratropium-albuterol 3 mL Neb INHALATION (20:50)
[2020-07-15] VITALS (45 sets, daily range): BP systolic 109–168; BP diastolic 64–97; PULSE 63–102; RESP 12–26; TEMP 37.1–37.3; O2SAT 90–95
[2020-07-15] MEDS: morphine 4 mg/mL SDV 1 mL 2 MG IVP ×4 (02:20→14:39)
[2020-07-15] MEDS: oxyCODONE 5 mg IR Tab/Cap 20 MG PO ×2 (04:42→10:43)
[2020-07-15 06:23] LABS: ABG PCO2 53.7 mmHg (35-45); ABG PH Result 7.43 (7.35-7.45); Alveolar-Arterial Oxygen Gradi 18.7 mmHg (5-10); Arterial Blood Gas Hematocrit 36.6 % (42-52); Base Excess ABG 9.7 mmol/L (-2.0-2.0); Blood Gas Allen Test Pos; Blood Gas Sample Site Radial, right; Blood Gas Sample Type Arterial; Carboxyhemoglobin 1.3 %THgb (0.4-20.1); HCO3 ABG 35.7 mmol/L (22-26); HGB O2 Sat 93.5 % (95-100); Ionized Calcium Level - ABG 1.2 mmol/L (1.1-1.4); Methemoglobin 0.6 % (0.4-1.5); Oxygen Device VENT; Oxygen Saturation ABG 95.4; PO2 ABG 75.4 mmHg (80.0-100.0); Potassium Level - ABG 3.9 mmol/L (3.5-5.0); Total Hemoglobin 11.9 g/dL (14-18)
[2020-07-15] MEDS: finasteride 5 mg Tablet PO (08:20)
[2020-07-15] MEDS: tamsulosin 0.4 mg Capsule PO (08:21)
[2020-07-15] MEDS: amlodipine 5 mg Tablet 2.5 MG PO (08:21)
[2020-07-15] MEDS: folic acid 1 mg Tablet PO (08:21)
[2020-07-15] MEDS: thiamine 100 mg Tablet PO (08:21)
[2020-07-15] MEDS: nicotine 21 mg Patch 1 PATCH TRANSDERMA (08:21)
[2020-07-15] MEDS: multivitamin therapeutic Tablet 1 TAB PO (08:21)
[2020-07-15] MEDS: ipratropium-albuterol 3 mL Neb INHALATION ×2 (08:53→19:50)
[2020-07-15] MEDS: famotidine 20 mg/2 mL INJ IVP ×2 (09:57→22:21)
--- NOTE | 2020-07-15 10:24 | PC.NURSE ---
Dr. Bates making rounds. Order clarification r/t bolus feedings. Doctor verbalizes to follow relay technician recommendations. Jevity 1.2 480 cc TID (0900, 1700, 0100) with 230cc H2O fluid flushes after feeds. Will continue to monitor.
--- NOTE | 2020-07-15 10:43 | P.CONIM_ITS ---
Providers/Reason for Consult Consulting Physican/Specialty*: Yandel Sheriff M.D. Psychiatry. Reason for Consult*: Evaluation for lethality. Attending Physician: Pablito Cesar MD Primary Care Provider: Yesenia Lizarraga Psych Consult HPI History of Present Illness Stan Zacarias is a 70 year old male who presented to the surgery team for schedule surgery with the following report: DATE H&P PERFORMED: 07/06/20 H&P UPDATE INFORMATION: I have reviewed H&P completed within last 30 days, I have examined patient prior to procedure and Changes to prior documentation as noted here (Patient was scheduled to undergo his procedure yesterday yet I had to postpone till today to have Dr. Steve ENT surgeon available as the patient represent a difficult airway, I did coordinate with Dr. Powell software development manager about that plan and she agrees to proceed in the presence of ENT ser vice. Particularly that the patient was last seen by ENT service a month ago and potential changes could have taken place.) CHANGES TO PREVIOUS DOCUMENTATION: Patient understands the difficult anatomy that he has because of the oropharyngeal mass. He also understands the potential difficulty extubation and may require mechanical ventilation. He is also aware about the potential high risk of bleeding related to the mass while we are performing the PEG tube placement. The discussion did take place in the presence of patient's nurse Kinga HAINES and patient agrees to proceed accordingly. PREOP DIAGNOSIS: Oropharyngeal cancer PRIMARY INDICATION FOR PROCEDURE: The same PLANNED PROCEDURE: Surgery reportedly went well. And was being followed up on the [facility] unit being seen by Dr. Hurtado when there was a rapid response called. She evaluated the situation saying the following: Patient had rapid response called after returning from radiation. He was noted to be unresponsive and cyanotic. His blow-by was noted to be removed by the nurse upon entering the room. He was noted to have a strong pulse but due to the concern for respiratory distress he was moved to the ICU. Patient was placed on a ventilator with no concerns. It was reported to me after this episode that patient had made gestures today with his hand as if he was pointing a gun to his head. With this episode and bl ow-by being removed resulting in respiratory distress discussed with psychiatry for consultation. Patient would be candidate for hospice care if felt that patient was able to make this decision appropriately. I called and discussed with patient's daughter and made her aware of events and made her aware of transfer to the ICU, she verbalized understanding. Due to concerns for lethality a psychiatric consult was initiated. Stan presented in the ICU and was receptive to the interview. I identified being with psychiatry and that his treatment team wanted me to evaluate him based on concerns about the events of 07-14-20. He was open and receptive to the conversation. Of note, the conversation took place purely in gestures or him writing responses down, as he was unable to speak. He reports that his foray with cancer began about fifteen years ago, with the skin cancer he deals with regularly. He reports that the main treatment was resection; cutting out the cancerous areas followed by suturing the opening. He showed me on both of his arms the many, many scars from fifteen years of resections. He reports that about five months ago he started coughing up blood and, at that time, he was evaluated; he has now come to know that he has oropharyngeal cancer. He reports that the time, over the last fifteen years, has been manageable, and he has come to accept his situation. He denies that there have been any changes in the way that he feels. He reports that this new cancer was a punch in the gut, however, he is prepared to do what he has to do to make it work. He reports that he man ages his anxiety and occasional low mood with a few beers and good music, and he functions quite well with that, per his report. He vehemently denies the idea that he would do anything to expedite the process. He denies any thoughts to hurt himself or kill himself, and certainly has no thoughts to hurt or kill others. We specifically addressed the issue of him reportedly putting his hand up to his head and making kind of a shooting motion, and he does not deny that that happened, but he reports that it was a joke that someone may not understand his joke; after fifteen years of dealing with cancer, this is another challenge but not a challenge that he is going to run from, and not a challenge that would lead him to do something to harm himself further or end his life. He reports that he has done all the things that were necessary to make it this fifteen years with the cancer, and he will do that for as long as the time he has left. He said he has maci and he leans on his maci, but he has made peace with this as his journey, and he has no plans to do anything to expedite the journey. We discussed the risks, benefits, and alternatives of initiating medications for depression and anxiety, and he understood but denied any current need for that type of intervention. We agreed that he would stay open to assistance, if things started to get to where he was unable to responsibly contract for safety, and that he would let someone know and utilize the resources that exist in the community. PSYCHIATRIC HISTORY: As above. SUBSTANCE ABUSE HISTORY: He denies smoking cigarettes, he reports drinking alcohol with some regularity but not in an abusive pattern. He denies any illicit drug use. He has never been to drug rehabilitation and denies DUI?s. FAMILY HISTORY: He denies any significant mental health or addiction issues, or suicidal behavior in his family. DEVELOPMENTAL HISTORY: The patient denies any issues with his mother?s or delivery of him. The patient met all developmental milestones on time. The patient denies speech therapy, learning support, emotional support, or special education classes. PSYCHOSOCIAL HISTORY: He denies any contributory psychosocial concerns. He has a place to stay, with his daughter. He has family supports and other supports. He denies any overwhelming stressors economically or otherwise. LEGAL HISTORY: He denies any history of significant legal issues, incarceration, or current legal peril. MEDICAL HISTORY: He has a tracheotomy, rheumatoid arthritis, BPH, CPD, hypertension, oropharyngeal cancer, status post oropharyngeal surgery for removal of oropharyngeal mass, high blood pressure, and please see history of present illness, from the surgery team, for further details. Meds Current Medications: Current Medications Generic Name Dose Route Start Last Admin Trade Name Freq PRN Reason Stop Dose Admin Albuterol/Ipratrop ium 3 ml 07/12/20 05:34 07/14/20 20:50 Duoneb INHALATION 3 ml Q4H PRN Administration SHORTNESS OF ALEIDA TH Amlodipine Besylat e 2.5 mg 07/13/20 09:00 07/14/20 07:27 Norvasc PO 2.5 mg DAILY NOEL Administration Famotidine 20 mg 07/11/20 10:30 07/14/20 22:54 Pepcid Inj IVP 20 mg Q12H NOEL Administration Finasteride 5 mg 07/13/20 09:00 09/25/20 07:27 Proscar PO 5 mg DAILY NOEL Administration Folic Acid 1 mg 07/13/20 09:00 07/14/20 07:27 Folic Acid PO 1 mg DAILY NOEL Administration Morphine Sulfate 2 mg 07/14/20 10:08 07/15/20 02:20 Morphine IVP 2 mg Q2H PRN Administration SEVERE PAIN Multivitamins Ther apeutic 1 tab 07/13/20 09:00 07/14/20 07:27 Multivitamin Tab PO 1 tab DAILY NOEL Administration Nicotine 1 patch 07/12/20 09:30 07/14/20 07:26 Nicoderm 21 Mg P atch TRANSDERMA 1 patch DAILY NOEL Administration Oxycodone HCl 20 mg 07/14/20 10:08 07/15/20 04:42 Oxycodone Ir PO 20 mg Q6H PRN Administration PAIN Tamsulosin HCl 0.4 mg 07/13/20 09:00 07/14/20 07:28 Flomax PO 0.4 mg DAILY NOEL Administration Thiamine Mononitra te 100 mg 07/13/20 09:00 07/14/20 07:27 Vitamin B-1 PO 100 mg DAILY NOEL Administration PFSH NPU PFSH: Medical History Anxiety BPH (benign prostatic hyperplasia) COPD (chronic obstructive pulmonary disease) Hypertension Rheumatoid arthritis 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 Cesar, Dr. Krishnamurthy and Dr. Lozano Surgical History H/O transurethral resection of prostate History of biopsy 05/31/2020 laryngoscopy with biopsy of right oropharyngeal mass History of local excision of skin lesion Family History (Updated 07/11/20 @ 09:53 by Irene Hurtado DO) Mother , Unknown health problems No problems noted. Father , Unknown health problems No problems noted. Denies family history of Diabetes CAD (coronary artery disease) Anesthesia complication Bleeding disorder Cancer Social History Smoking and tobacco status: current every day smoker Alcohol intake: current Alcohol intake frequency: 3 or more drinks per day Alcohol type: beer Lives independently: Yes Household members: family Marital status: Single Current occupational status: retired History of recent travel: No Mental Status Exam MSE Comments: This is a well-nourished, well-developed, white male, in a hospital gown, with adequate grooming and eye contact. No abnormal movements. Cooperative with exam in no acute distress. Speech was absent but he was communicative through writing and expression. Mood described as ?as good as can be expected?; affect congruent. Thought process, organized. Thought content: patient denied any suicidal or homicidal ideation, there were no delusions reported or noted, patient denied any auditory or visual hallucinations. Attention, concentration, and memory appear intact but none were formally tested. He is alert and oriented times three. Insight and judgment are fair to good. Vitals/I&O/Wt Last Vital Signs Temp 98.6 F 07/14/20 20:00 Pulse 78 07/14/20 04:00 Resp 9 L 07/14/20 04:51 BP 114/63 07/14/20 04:00 Pulse Ox 94 07/14/20 04:00 07/14/20 07/14/20 14:59 22:59 Intake Total 720 / 720 690 / 1410 Output Total 525 / 525 100 / 625 Balance 195 / 195 590 / 785 Weight last 48 hrs Weight 82.242 kg Weight 84.504 kg A&P Assessment and plan (1) Adjustment disorder: Status: Acute Additional A&P Information This is a 70 year old, white male, with adjustment disorder, with recent resection of an oropharyngeal mass, with a rapid response event that triggered concerns about lethality, who presents absent concerns for suicidal behavior. Continue current medication. Continue to be open and offer medication and outpatient therapy interventions if his situation worsens or changes. No signs of credible lethality or need for any changes in his current treatment protocols. Please advise if further evaluation is desired. Attestations NPU Medical Necessity Statement*: N/A. [place] refer to the primary teams notes for medical necessity determination. Coding Level of Care Code Acute Clothing Sorter for Agustin Aaron Diagnoses Adjustment disorder F43.20
--- NOTE | 2020-07-15 10:45 | XRR_ITS ---
PROCEDURE INFORMATION: Exam: XR Chest, 1 View Exam date and time: 07/15/2020 11:13 AM Age: 70 years old Clinical indication: Device placement; Tracheostomy placement or adjustment; Prior surgery; Additional info: Trach TECHNIQUE: Imaging protocol: XR of the chest Views: 1 view. COMPARISON: CR XR chest 1V portable [id number] 07/11/2020 8:47 AM FINDINGS: Tubes, catheters and devices: Tracheostomy tube and central venous catheter. Lungs: COPD, interstitial prominence, and accessory azygos lobe. Pleural space: No significant pleural effusion or pneumothorax. Heart/Mediastinum: No cardiomegaly. Vasculature: Ectasia of the thoracic aorta. Bones/joints: Osteopenia mild degenerative change . Soft tissues: Bilateral nipple piercings. XR/XR chest 1V portable [id number] IMPRESSION: COPD .
--- NOTE | 2020-07-15 14:31 | PM.PN ---
Subjective Subjective: Interval history: No significant changes since yesterday transfer to ICU after apneic episode. Reportedly he removed oxygen supply of tracheostomy tube. There was no hemodynamic compromise. Currently the patient is stable. He is still on mechanical ventilation. Unfortunately the trial of CPAP was not successful. We will continue ventilatory management for now. The patient reports some pain in the area of his right cheek. Well-controlled with current medications. No nausea or vomiting. No fevers or chills. No shortness of breath. Vitals/I&O/Wt Last Vital Signs Temp 99.2 F 07/15/20 11:00 Pulse 81 07/15/20 12:00 Resp 14 07/15/20 12:01 BP 121/67 07/15/20 12:00 Pulse Ox 91 07/15/20 12:00 07/14/20 07/15/20 07/15/20 22:59 06:59 14:59 Intake Total 690 / 1410 600 / 600 Output Total 100 / 625 300 / 925 200 / 200 Balance 590 / 785 -300 / 485 400 / 400 Weight last 48 hrs Weight 79.605 kg Weight 82.242 kg Physical Exam Narrative: EXAM NARRATIVE: The patient is awake alert and oriented. No acute distress. Skin is warm and dry Moist mucous membranes Neck no JVD Lungs bilateral mild wheezes. Good conduction to all lung miles. Tracheostomy is present. No respiratory distress Heart S1, S2, regular Abdomen soft, nontender, bowel sounds are present Extremities trace edema, no cyanosis, no calf tenderness bilaterally No focal weakness. Data : 07/14/20 05:24 07/14/20 05:24 A&P Assessment and plan (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 Vang and Dr. Cesar, POD #3 We will follow-up with postoperative care per surgical recommendations Chemotherapy and radiation per Dr. Krishnamurthy and Dr. Lozano Status: Acute (2) Feeding difficulty: Patient with difficulty with feeding due to large oropharyngeal cancer, PEG tube feeding recommendations Follow-up with general surgery, Dr. Vang Status: Acute (3) Hypertension: Continue amlodipine 2.5 mg daily Status: Acute (4) COPD (chronic obstructive pulmonary disease): With continued tobacco abuse, nicotine patch Respiratory therapy to assess and treat Oxygen per protocol Status: Acute (5) Anxiety: Ativan PRN Status: Acute (6) BPH (benign prostatic hyperplasia): Continue home Flomax 0.4 mg daily Status: Acute (7) Rheumatoid arthritis: Previously on methotrexate, recommendation to be stopped by Dr. Krishnamurthy, oncology Status: Acute Additional A&P Information Alcohol abuse: No evidence of alcohol with drawal, will discontinue CIWA protocol Postoperative pain along with pain secondary to oropharyngeal cancer: Increase oxycodone to 20 mg, addition of tramadol, morphine every 2 hours DVT prophylaxis: SCDs, will follow up with recommendations from surgery team as to when it is safe to start pharmacologic ppx Diet: Tube feeds CODE STATUS: Full code [place] Acute hypoxic respiratory failure secondary to apnea. Not entirely sure why the patient became apneic yesterday. The episode of original hypoxia which happened because he removed the supplemental oxygen was very short lasting without any significant hemodynamic compromise or ADVANCED PRACTICE NURSE PSYCHOTHERAPIST injury. Might be related to opiates. Currently he is stable on mechanical ventilation via tracheostomy tube. We will continue this management for now. I will try to decrease the dose of his opiates. Possible suicidal attempt. Waiting for Dr. Casas' assessment. Currently on suicide precautions. Head and neck cancer. Status post tracheostomy. Management per surgical team and Dr. Krishnamurthy. History of COPD. No evidence of acute exacerbation. Will continue current treatments. Hypertension. Currently stable. Continue current management. Anemia. Currently stable. Continue monitoring. Nutrition. Per dietary recommendations via PEG tube. History of EtOH. Currently there is no evidence of withdrawal symptoms. Ordered vitamin replacement. DVT prophylaxis. Will check with surgical team regarding use of Lovenox for DVT prophylaxis. The plan of care was discussed with the patient and multidisciplinary team. They verbalized understanding and agreement. Attestations Medical Necessity Statement*: Based on my assessment of his current condition the patient will require management in ICU. Vertical care at time spent on this encounter is 40 minutes. Coding Level of Care Code Acute Final Inspector for Chg Fwd Diagnoses Squamous cell carcinoma of oropharynx C10.9 Feeding difficulty R63.3 Hypertension I10 COPD (chronic obstructive pulmonary disease) J44.9 Anxiety F41.9 BPH (benign prostatic hyperplasia) N40.0 Rheumatoid arthritis M06.9
[2020-07-15] MEDS: enoxaparin 40 mg/0.4 mL Syringe SUBCUT (16:16)
[2020-07-15] MEDS: morphine 4 mg/mL SDV 1 mL 1 MG IVP ×2 (17:29→20:54)
[2020-07-15] MEDS: oxyCODONE 5 mg IR Tab/Cap 10 MG PO ×2 (17:30→23:53)
[2020-07-15] MEDS: ondansetron 2 mg/ML SDV 2 mL 4 MG IVP (17:51)
--- NOTE | 2020-07-15 21:24 | P.PN_ITS ---
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 The patient is POD #4 s/p tracheotomy and has recently started Chemo/XRT. The patient had an episode of apnea/hypoxia yesterday, and was transferred back to the ICU for pulmonary/ventilator support. The patient is now on CPAP and is doing well. Vitals/I&O/Wt Last Vital Signs Temp 99.1 F 07/15/20 20:00 Pulse 99 07/15/20 20:00 Resp 26 H 07/15/20 20:54 BP 120/73 07/15/20 20:00 Pulse Ox 91 07/15/20 20:54 07/15/20 07/15/20 07/15/20 06:59 14:59 22:59 Intake Total 600 / 600 680 / 1280 Output Total 300 / 925 200 / 200 350 / 550 Balance -300 / 485 400 / 400 330 / 730 Weight last 48 hrs Weight 79.605 kg Weight 82.242 kg Physical Exam Const: COMMON NORMALS: no acute distress and patient oriented x3 GENERAL APPEARANCE: cooperative HENMT: COMMON NORMALS: normocephalic, hearing grossly normal bilaterally and external ears normal HEAD & SCALP: normocephalic FACE & SINUS: normal facial exam EXTERNAL EAR: Yes external ears normal MOUTH: lip normal Eye: COMMON NORMALS: conjunctivae normal and no scleral icterus GENERAL EYE: appearance normal, both eyes and all related structures CONJUNCTIVA: Yes conjunctivae normal Neck/C-Spine: COMMON NORMALS: full ROM and no lymphadenopathy GENERAL: Yes other (The trach is in place. There is no erythema or induration.) Lymph: LYMPHATIC: no lymphadenopathy noted Resp: COMMON NORMALS: normal respiratory effort and clear to auscultation bilaterally AUSCULTATION: clear to auscultation bilaterally Cardio: COMMON NORMALS: regular rate and regular rhythm RATE: regular rate RHYTHM: regular rhythm GI: COMMON NORMALS: Normal to inspection, nondistended, normoactive bowel sounds present and Soft to palpation PALPATION: Yes Soft to palpation Extremity: COMMON NORMALS: normal to inspection Neuro: COMMON NORMALS: patient oriented x3 and CN's II-XII intact bilaterally Psych: COMMON NORMALS: mental status grossly normal Skin: COMMON NORMALS: no rashes or lesions noted GENERAL SKIN EXAM: no rashes or lesions noted Data : 07/14/20 05:24 07/14/20 05:24 A&P Additional A&P Information Impression: 1) 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 Attestations Medical Necessity Statement*: The patient is on inpatient status until medically stable and trach is stable. Coding Level of Care Code Acute Chemical Equipment Controller for Agustin Aaron
--- NOTE | 2020-07-15 23:52 | PC.NURSE ---
Trach Care Cleansed around trach with white vinegar with gauze and sterile Qtips per Dr. Cesar. Gave verbal orders at bedside to do trach cleansing TID with white vinegar. Trach collar remains sutured in. Clean woven drain sponge placed to surrounding skin around trach.
[2020-07-16] VITALS (24 sets, daily range): BP systolic 128–169; BP diastolic 64–94; PULSE 74–98; RESP 12–26; TEMP 37–37.9; O2SAT 90–93
--- NOTE | 2020-07-16 01:23 | PC.NURSE ---
Pt refused scheduled Jevity tube feeding at this time, wrote on board I feel too full
[2020-07-16] MEDS: morphine 4 mg/mL SDV 1 mL 1 MG IVP ×4 (03:57→19:43)
[2020-07-16 04:36] LABS: Basophils % 0.1 %; Eosinophils % 0.2 %; Hematocrit 33.1 % (42.0-52.0); Hemoglobin 10.3 g/dL (11.7-16.6); Lymphocytes # 0.6 10^3/uL (0.8-4.8); Lymphocytes % 6.4 %; Mean Corpuscular HGB Conc 31.1 g/dL (30.0-36.0); Mean Corpuscular Hemoglobin 33.6 pg (28.0-34.0); Mean Corpuscular Volume 107.8 fL (80-94); Mean Platelet Volume 10.6 fL (7.4-10.4); Neutrophils # 7.55 10^3/uL (1.8-7.7); Nucleated Red Blood Cells % 0 %; Platelet Count 280 10^3/cmm (130-400); Red Blood Count 3.07 10^6/uL (4.1-5.3); Red Cell Distribution Width 12.7 % (12.1-15.1); White Blood Count 9.2 10^3/uL (4.0-10.0)
[2020-07-16 05:02] LABS: Alanine Aminotransferase 11 U/L (0-41); Alkaline Phosphatase 62 IU/L (40-130); Anion Gap 10.3 (5-19); Aspartate Amino Transferase 13 U/L (0-40); Blood Urea Nitrogen 20 mg/dL (8-23); Calcium 9.2 mg/dL (8.5-10.5); Carbon Dioxide 32 mmol/L (22-29); Chloride 96 mmol/L (98-107); Globulin 2.7 g/dL (1.3-4.6); Glucose 223 mg/dL (65-115); Osmolality Calculated 288 mOsm/kg (285-295); Potassium 4.3 mmol/L (3.5-5.1); Sodium 134 mmol/L (136-145); Total Bilirubin 0.3 mg/dL (0.15-1.2); Total Protein 5.7 g/dL (6.6-8.7)
[2020-07-16] MEDS: ipratropium-albuterol 3 mL Neb INHALATION (08:26)
[2020-07-16] MEDS: folic acid 1 mg Tablet PO (09:08)
[2020-07-16] MEDS: amlodipine 5 mg Tablet 2.5 MG PO (09:08)
[2020-07-16] MEDS: finasteride 5 mg Tablet PO (09:08)
[2020-07-16] MEDS: tamsulosin 0.4 mg Capsule 0.8 MG PO (09:08)
[2020-07-16] MEDS: multivitamin therapeutic Tablet 1 TAB PO (09:08)
[2020-07-16] MEDS: nicotine 21 mg Patch 1 PATCH TRANSDERMA (09:09)
[2020-07-16] MEDS: thiamine 100 mg Tablet PO (09:09)
--- NOTE | 2020-07-16 09:10 | PC.NURSE ---
Pt refused tube feeding at this time. He gestured that he is still too full. Flushes after med allowed.
[2020-07-16] MEDS: TRAMadol 50 mg Tablet PEG-TUBE (09:27)
[2020-07-16] MEDS: famotidine 20 mg/2 mL INJ IVP ×2 (09:29→23:00)
--- NOTE | 2020-07-16 10:45 | PC.SOCIAL ---
IMM Updated Page 2 of IMM updated and given to patient. Initialed, dated, and timed and placed back in chart.
--- NOTE | 2020-07-16 12:11 | PC.NURSE ---
Pt still denies being hungry and wanting tube feeding at this time.
--- NOTE | 2020-07-16 12:48 | P.PN_ITS ---
Subjective Subjective: Interval history: 70 yo wm who is POD/HD# 5 s/p tracheotomy, PEG placement, and Port a cath placement. The patient had an apneic event 2 days ago, but reports that he is doing well now. The patient has no c/o. He has completed 3 days of XRT and has started chemotherapy. Vitals/I&O/Wt Last Vital Signs Temp 99.1 F 07/15/20 20:00 Pulse 91 07/16/20 08:29 Resp 18 07/16/20 12:04 BP 135/68 07/16/20 06:00 Pulse Ox 91 07/16/20 12:04 07/15/20 07/16/20 07/16/20 22:59 06:59 14:59 Intake Total 680 / 1280 710 / 1990 Output Total 675 / 875 450 / 1325 Balance 5 / 405 260 / 665 Weight last 48 hrs Weight 77.882 kg Weight 79.605 kg Physical Exam Const: COMMON NORMALS: no acute distress and average body habitus HENMT: COMMON NORMALS: normocephalic, external ears normal and Normal external nose present HEAD & SCALP: normal to inspection and normocephalic NOSE: Normal external nose present EXTERNAL EAR: Yes external ears normal Eye: COMMON NORMALS: EOMs intact bilaterally and conjunctivae normal GENERAL EYE: appearance normal, both eyes and all related structures CONJUNCTIVA: Yes conjunctivae normal Neck/C-Spine: COMMON NORMALS: full ROM, no lymphadenopathy and Thyroid normal GENERAL: Yes other (The trach site is ) THYROID: Thyroid normal Lymph: LYMPHATIC: no lymphadenopathy noted Chest: COMMONS NORMALS: normal inspection of the chest Resp: COMMON NORMALS: normal respiratory effort and clear to auscultation bilaterally AUSCULTATION: clear to auscultation bilaterally Cardio: COMMON NORMALS: regular rate, regular rhythm and No murmurs present (Cardio) RATE: regular rate RHYTHM: regular rhythm Extremity: COMMON NORMALS: normal to inspection Neuro: COMMON NORMALS: CN's II-XII intact bilaterally Psych: COMMON NORMALS: mental status grossly normal Skin: COMMON NORMALS: no rashes or lesions noted GENERAL SKIN EXAM: no rashes or lesions noted Data : 07/16/20 04:25 07/16/20 04:25 A&P Additional A&P Information Impression: 1) 70 yo wm who is POD/HD #5 s/p tracheotomy doing well from this standpoint 2) T4/Stage IV SCCA of the Right oral pharynx doing well 3) Medical Plan: 1) Continue current trach care; will perform the first trach change on POD #7; the patient may be discharged to home or the group home at that point; speech and swallowing therapy consulted; social work consulted 2) Continue Chemo/XRT 3) As per the Hospitalist team; the patient is to continue enteral nutrition as tolerated. Attestations Medical Necessity Statement*: The patient requires inpatient care until the trach is stable (POD #7) Coding Level of Care Code Acute Tube Molder Fiberglass for Agustin Aaron
[2020-07-16] MEDS: enoxaparin 40 mg/0.4 mL Syringe SUBCUT (15:00)
--- NOTE | 2020-07-16 16:15 | PC.NURSE ---
Customer care card of $15 given to Ilene Zacarias, pt'd daughter.
--- NOTE | 2020-07-16 16:19 | PC.NURSE ---
[facility] notified that pt's belongings did not transfer with pt[facility]found will bring to pt.
--- NOTE | 2020-07-16 16:23 | P.PN_ITS ---
Subjective Subjective: Interval history: 70 yo wm who is POD/HD# 6 s/p tracheotomy, PEG placement, and Port a cath placement. The patient had an apneic event 3 days ago, but reports that he is doing well now. Patient is doing well. Ventilatory support was discontinued. He is doing well with spontaneous breathing. He is receiving oxygen through the tracheostomy tube. Denies shortness of breath. Denies uncontrolled pain. No nausea or vomiting. According to the nurse volume off and tube feed boluses bolus to high for him and he was having significant residuals and some bloating. Vitals/I&O/Wt Last Vital Signs Temp 99.1 F 07/16/20 12:00 Pulse 74 07/16/20 12:00 Resp 18 07/16/20 14:59 BP 169/94 07/16/20 12:00 Pulse Ox 92 07/16/20 14:59 07/16/20 07/16/20 07/16/20 06:59 14:59 22:59 Intake Total 710 / 1990 120 / 120 Output Total 450 / 1325 425 / 425 Balance 260 / 665 -305 / -305 Weight last 48 hrs Weight 77.882 kg Weight 79.605 kg Physical Exam Narrative: EXAM NARRATIVE: The patient is awake alert and oriented. No acute distress. Skin is warm and dry Moist mucous membranes Neck no JVD Lungs bilateral mild wheezes. Good conduction to all lung miles. Tracheostomy is present. No respiratory distress Heart S1, S2, regular Abdomen soft, nontender, bowel sounds are present Extremities trace edema, no cyanosis, no calf tenderness bilaterally No focal weakness. Data : 07/16/20 04:25 07/16/20 04:25 A&P Assessment and plan (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 Vang and Dr. Cesar, POD #3 We will follow-up with postoperative care per surgical recommendations Chemotherapy and radiation per Dr. Krishnamurthy and Dr. Lozano Status: Acute (2) Feeding difficulty: Patient with difficulty with feeding due to large oropharyngeal cancer, PEG tube feeding recommendations Follow-up with general surgery, Dr. Vang Status: Acute (3) Hypertension: Continue amlodipine 2.5 mg daily Status: Acute (4) COPD (chronic obstructive pulmonary disease): With continued tobacco abuse, nicotine patch Respiratory therapy to assess and treat Oxygen per protocol Status: Acute (5) Anxiety: Ativan PRN Status: Acute (6) BPH (benign prostatic hyperplasia): Continue home Flomax 0.4 mg daily Status: Acute (7) Rheumatoid arthritis: Previously on methotrexate, recommendation to be stopped by Dr. Krishnamurthy, oncology Status: Acute Additional A&P Information Alcohol abuse: No evidence of alcohol with drawal, will discontinue CIWA protocol Postoperative pain along with pain secondary to oropharyngeal cancer: Increase oxycodone to 20 mg, addition of tramadol, morphine every 2 hours DVT prophylaxis: SCDs, will follow up with recommendations from surgery team as to when it is safe to start pharmacologic ppx Diet: Tube feeds CODE STATUS: Full code [place] Acute hypoxic respiratory failure secondary to apnea. Not entirely sure why the patient became apneic. But currently it has resolved. He is breathing spontaneously with some supplemental oxygen. We will transfer him to medical floor if he remains stable. Possible suicidal attempt. According to Dr. Casas's note he did not find any credible evidence of suicidal intentions. Head and neck cancer. Status post tracheostomy. Management per surgical team and Dr. Krishnamurthy. History of COPD. No evidence of acute exacerbation. Will continue current treatments. Hypertension. Currently stable. Continue current management. Anemia. Some worsening of hemoglobin I suspect secondary to hemodilution. No evidence of bleeding. We will continue monitoring. Nutrition. I asked the nurse to decrease the volume of tube feeds and try to gradually increase to the goal outlined by the nutritional team. History of EtOH. Currently there is no evidence of withdrawal symptoms. Ordered vitamin replacement. DVT prophylaxis. Lovenox. Discussed with Dr. Cesar. The plan of care was discussed with the patient and multidisciplinary team. They verbalized understanding and agreement. Attestations Medical Necessity Statement*: Still requires close monitoring and supplemental oxygen. Waiting for additional recommendations by the ENT regarding management of cancer. Coding Level of Care Code Acute Automotive Accessory Installer for Chg Fwd Diagnoses Squamous cell carcinoma of oropharynx C10.9 Feeding difficulty R63.3 Hypertension I10 COPD (chronic obstructive pulmonary disease) J44.9 Anxiety F41.9 BPH (benign prostatic hyperplasia) N40.0 Rheumatoid arthritis M06.9
--- NOTE | 2020-07-16 16:35 | PC.NURSE ---
Pt's belongings delivered by YANCY Das [facility].
--- NOTE | 2020-07-16 16:55 | PC.NURSE ---
Daughter at bedside. Time for tube feeding. Offered pt to hands on his feeding pt declined. He indicated per writing that he did not need to know this he was going to a fdc. Reiterated what physician said , the fdc was to be temporary, eventually he he will be going home and he needs to know how to do it. Pt still refused. Instructed Ilene Osborne, on PEG use and demonstrated tube feeding per syringe and gravity. Daughter declined hands on learning.
[2020-07-16] MEDS: oxyCODONE 5 mg IR Tab/Cap 10 MG PO (18:16)
--- NOTE | 2020-07-16 18:29 | PC.NURSE ---
Pt has had an uneventful day. he had a slight fever this am, none this afternoon. VSS. Pt on HAG at 40% FIo2 , tolerating well. Pt needs frequent suctioning of mucous out of trach. He needs considerable amount of encouragement to attempt himself, he prefers some one else to do it for him. He OOB to [facility] once today, faltulence noted. Pt urinating in urinal without difficulty. HIs daughter, Ilene, came for visit. It was planned to give here a $15 card to help with gas money so she could come and learn trach care, PEG care. She declined any hands on learning this visit, and left after an hour. Pt c/o of right ear/neck pain throughout the day, he indicated the Tramadol or Oxy IR did not help much, he prefers morphine for pain meds. He rates his pain at least a 8 , 0-10 scale, no VSS change or affect change noted. He has mostly a flat affect.
--- NOTE | 2020-07-16 19:09 | NUR.SHIFT ---
Report given to YANCY Arechiga.
--- NOTE | 2020-07-16 21:21 | PC.NURSE ---
Patient was only able to tolerate 180 mL of Jevity 1.2 for dinner feed. Only able to tolerate 120 mL flush. Patient refused further feed. PEG site is asymptomatic and patient does not complain of pain at site.
[2020-07-17] VITALS (21 sets, daily range): BP systolic 127–166; BP diastolic 69–83; PULSE 72–91; RESP 12–24; TEMP 36.9; O2SAT 89–100
[2020-07-17] MEDS: lanolin oint 7 gm 1 APPLIC TOPICAL (01:49)
[2020-07-17] MEDS: morphine 4 mg/mL SDV 1 mL 1 MG IVP ×6 (02:32→20:36)
[2020-07-17 03:47] LABS: Basophils % 0.2 %; Eosinophils % 0.3 %; Hematocrit 33.5 % (42.0-52.0); Hemoglobin 10.4 g/dL (11.7-16.6); Lymphocytes # 0.4 10^3/uL (0.8-4.8); Mean Corpuscular Volume 109.5 fL (80-94); Mean Platelet Volume 10.9 fL (7.4-10.4); Monocytes # 1.2 10^3/uL (0.2-0.9); Monocytes % 10.4 %; Neutrophils # 9.43 10^3/uL (1.8-7.7); Neutrophils % 84.7 %; Nucleated Red Blood Cells % 0 %; Platelet Count 250 10^3/cmm (130-400); Red Blood Count 3.06 10^6/uL (4.1-5.3); Red Cell Distribution Width 12.9 % (12.1-15.1); White Blood Count 11.1 10^3/uL (4.0-10.0)
[2020-07-17 04:09] LABS: Magnesium 1.8 mg/dL (1.7-2.3)
--- NOTE | 2020-07-17 05:25 | P.PN_ITS ---
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 His post op course was complicated by an apneic episode on POD#3 - the patient was briefly on vetilatory support, but is now doing well without it. The patient reports some right ear pain, but is o/w doing well and has no other c/o. Vitals/I&O/Wt Last Vital Signs Temp 98.6 F 07/16/20 20:00 Pulse 80 07/17/20 04:00 Resp 12 07/17/20 02:32 BP 152/71 07/17/20 04:00 Pulse Ox 93 07/17/20 04:00 07/16/20 07/16/20 07/17/20 14:59 22:59 06:59 Intake Total 120 / 120 580 / 700 Output Total 425 / 425 625 / 1050 200 / 1250 Balance -305 / -305 -45 / -350 -200 / -550 Weight last 48 hrs Weight 77.882 kg Weight 79.605 kg Physical Exam Const: COMMON NORMALS: no acute distress, average body habitus and patient oriented x3 HENMT: COMMON NORMALS: normocephalic and external ears normal HEAD & SCALP: normocephalic FACE & SINUS: normal facial exam EXTERNAL EAR: Yes external ears normal MOUTH: lip normal and tongue normal Eye: COMMON NORMALS: EOMs intact bilaterally, conjunctivae normal and no scleral icterus CONJUNCTIVA: Yes conjunctivae normal Neck/C-Spine: COMMON NORMALS: no lymphadenopathy and supple GENERAL: Yes other (The trach site is clean, and without erythema or induration.) Lymph: LYMPHATIC: no lymphadenopathy noted Chest: COMMONS NORMALS: normal inspection of the chest and normal palpation of entire chest wall Resp: COMMON NORMALS: normal respiratory effort, No retractions, No use of accessory muscles and clear to auscultation bilaterally AUSCULTATION: clear to auscultation bilaterally Cardio: COMMON NORMALS: regular rate, regular rhythm and No murmurs present (Cardio) RATE: regular rate RHYTHM: regular rhythm GI: COMMON NORMALS: Normal to inspection, nondistended, normoactive bowel sounds present and Soft to palpation PALPATION: Yes Soft to palpation Extremity: COMMON NORMALS: normal to inspection Neuro: COMMON NORMALS: patient oriented x3, CN's II-XII intact bilaterally and no focal motor deficits Psych: COMMON NORMALS: mental status grossly normal and cooperative Skin: COMMON NORMALS: no rashes or lesions noted GENERAL SKIN EXAM: no rashes or lesions noted Data : 07/17/20 03:29 07/16/20 04:25 A&P Additional A&P Information Impression: 1) 70 yo wm with a h/o a 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
[2020-07-17 05:59] LABS: Albumin Level 3.3 g/dL (3.5-5.2); Anion Gap 13.5 (5-19); Blood Urea Nitrogen 16 mg/dL (8-23); Calcium 9.1 mg/dL (8.5-10.5); Carbon Dioxide 32 mmol/L (22-29); Chloride 95 mmol/L (98-107); Glucose 129 mg/dL (65-115); Phosphorus 4.1 mg/dL (2.5-4.5); Potassium 4.5 mmol/L (3.5-5.1); Sodium 136 mmol/L (136-145)
[2020-07-17] MEDS: nicotine 21 mg Patch 1 PATCH TRANSDERMA (08:34)
[2020-07-17] MEDS: multivitamin therapeutic Tablet 1 TAB PO (08:34)
[2020-07-17] MEDS: tamsulosin 0.4 mg Capsule 0.8 MG PO (08:34)
[2020-07-17] MEDS: folic acid 1 mg Tablet PO (08:35)
[2020-07-17] MEDS: thiamine 100 mg Tablet PO (08:35)
[2020-07-17] MEDS: amlodipine 5 mg Tablet 2.5 MG PO (08:35)
[2020-07-17] MEDS: finasteride 5 mg Tablet PO (08:35)
[2020-07-17] MEDS: famotidine 20 mg/2 mL INJ IVP ×2 (10:10→20:37)
--- NOTE | 2020-07-17 10:25 | PC.RESP ---
ORDER CLARIFICATION PT TAKEN OFF VENT ON 07/16/2020. PT STILL HAS TRACH IN PLACE.
--- NOTE | 2020-07-17 10:47 | P.PN_ITS ---
Subjective Subjective: Interval history: no acute overnight events, currently continues on HAG at 15lpm Medications: Reviewed: Yes Vitals/I&O/Wt Last Vital Signs Temp 98.4 F 07/17/20 08:00 Pulse 88 07/17/20 10:00 Resp 23 H 07/17/20 10:00 BP 151/76 07/17/20 10:00 Pulse Ox 96 07/17/20 10:00 07/16/20 07/17/20 07/17/20 22:59 06:59 14:59 Intake Total 580 / 700 540 / 540 Output Total 625 / 1050 200 / 1250 400 / 400 Balance -45 / -350 -200 / -550 140 / 140 Weight last 48 hrs Weight 80.087 kg Weight 77.882 kg Physical Exam Narrative: EXAM NARRATIVE: GEN: Awake, alert and oriented, no acute distress CVS: S1S2 N RS: CTA B/L Abd: Soft, nt/nd , bs+ BLOOD BANK CREDIT CLERK: no focal neuro deficits Data : 07/17/20 03:29 07/17/20 03:29 A&P Assessment and plan (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 Vang and Dr. Cesar, POD #3 We will follow-up with postoperative care per surgical recommendations Chemotherapy and radiation per Dr. Krishnamurthy and Dr. Lozano next chemo cycle in 3 weeks, ongoing RT Status: Acute (2) Feeding difficulty: Patient with difficulty with feeding due to large oropharyngeal cancer, PEG tube feeding Status: Acute (3) Hypertension: Continue amlodipine 2.5 mg daily Status: Acute (4) COPD (chronic obstructive pulmonary disease): With continued tobacco abuse, nicotine patch Respiratory therapy to assess and treat Oxygen per protocol Status: Acute (5) Anxiety: Ativan PRN Status: Acute (6) BPH (benign prostatic hyperplasia): Continue home Flomax 0.4 mg daily Status: Acute (7) Rheumatoid arthritis: Previously on methotrexate, recommendation to be stopped by Dr. Krishnamurthy, oncology Status: Acute Additional A&P Information Acute hypoxic respiratory failure secondary to apnea. Not entirely sure why the patient became apneic. Per reports appeared to have been shortly after an episode of self suctioning, therefore suspect may have been a vasovagal event. He is breathing spontaneously with some supplemental oxygen. Transfer to medic al floors today . Possible suicidal attempt. According to Dr. Casas's note he did not find any credible evidence of suicidal intentions. Head and neck cancer. Status post tracheostomy. Management per surgical team and Dr. Krishnamurthy. Currently ongoing chemoraditaion. S/p first cycle of chemo, next planned on 3 weeks. Ongoing RT History of COPD. No evidence of acute exacerbation. Will continue current treatments. Hypertension. Currently stable. Continue current management. Anemia. Some worsening of hemoglobin I suspect secondary to hemodilution. No evidence of bleeding. We will continue monitoring. Nutrition. I asked the nurse to decrease the volume of tube feeds and try to gradually increase to the goal outlined by the nutritional team. History of EtOH. Currently there is no evidence of withdrawal symptoms. Ordered vitamin replacement. DVT prophylaxis. Lovenox. Discussed with Dr. Cesar. The plan of care was discussed with the patient and multidisciplinary team. Dispo: Patient lives with his daughter who works multimedia services coordinator. As such at this point in time, he is unable to demonstrate skills to take care of his PEG and trach. He is significantly deconditioned as well. Given this, he would prefer to transition to SNF prior to going home, however this is delayed by the fact that currently [facility] in [place] are unable to accept new patients due to the ongoing pandemic. facilities closer to his home unable to accept due to inability to care for trach. Patient and daughter reluctant to retun home. Will try placement at LTAC Attestations Medical Necessity Statement*: transfer out of ICU today Coding Level of Care Code Acute Brush Cleaner for g Fwd Diagnoses Squamous cell carcinoma of oropharynx C10.9 Feeding difficulty R63.3 Hypertension I10 COPD (chronic obstructive pulmonary disease) J44.9 Anxiety F41.9 BPH (benign prostatic hyperplasia) N40.0 Rheumatoid arthritis M06.9
[2020-07-17] MEDS: oxyCODONE 5 mg IR Tab/Cap 10 MG PO ×2 (11:56→17:37)
[2020-07-17] MEDS: enoxaparin 40 mg/0.4 mL Syringe SUBCUT (16:17)
[2020-07-17] MEDS: sennosides 8.6 mg Tablet 17.2 MG PO (20:40)
[2020-07-18] VITALS (22 sets, daily range): BP systolic 125–158; BP diastolic 67–89; PULSE 73–95; RESP 14–24; TEMP 36.7–37.7; O2SAT 91–100
[2020-07-18 03:33] LABS: Basophils % 0.1 %; Eosinophils % 0.1 %; Hematocrit 32.8 % (42.0-52.0); Hemoglobin 10.4 g/dL (11.7-16.6); Lymphocytes # 0.6 10^3/uL (0.8-4.8); Lymphocytes % 5.9 %; Mean Corpuscular HGB Conc 31.7 g/dL (30.0-36.0); Mean Corpuscular Hemoglobin 33.9 pg (28.0-34.0); Mean Corpuscular Volume 106.8 fL (80-94); Monocytes # 0.9 10^3/uL (0.2-0.9); Monocytes % 9.4 %; Neutrophils # 8.03 10^3/uL (1.8-7.7); Neutrophils % 84.1 %; Nucleated Red Blood Cells % 0 %; Platelet Count 263 10^3/cmm (130-400); Red Blood Count 3.07 10^6/uL (4.1-5.3); Red Cell Distribution Width 12.5 % (12.1-15.1); White Blood Count 9.6 10^3/uL (4.0-10.0)
[2020-07-18] MEDS: morphine 4 mg/mL SDV 1 mL 1 MG IVP ×5 (03:52→22:14)
[2020-07-18 04:24] LABS: Alanine Aminotransferase 12 U/L (0-41); Albumin Level 3.2 g/dL (3.5-5.2); Alkaline Phosphatase 66 IU/L (40-130); Anion Gap 13.3 (5-19); Aspartate Amino Transferase 14 U/L (0-40); Blood Urea Nitrogen 14 mg/dL (8-23); Calcium 9.4 mg/dL (8.5-10.5); Carbon Dioxide 33 mmol/L (22-29); Chloride 94 mmol/L (98-107); Globulin 2.9 g/dL (1.3-4.6); Glucose 134 mg/dL (65-115); Osmolality Calculated 284 mOsm/kg (285-295); Potassium 4.3 mmol/L (3.5-5.1); Sodium 136 mmol/L (136-145); Total Bilirubin 0.5 mg/dL (0.15-1.2); Total Protein 6.1 g/dL (6.6-8.7)
--- NOTE | 2020-07-18 06:50 | W.PM.OPSUD ---
Surgery/Procedure H&P Update DATE OF PROCEDURE: July 18, 2020 DATE H&P PERFORMED: 07/03/20 H&P UPDATE INFORMATION: I have reviewed H&P completed within last 30 days, I have examined patient prior to procedure and No changes to prior documentation PREOP DIAGNOSIS: Oropharyngeal cancer with threatened airway PLANNED PROCEDURE: Operation Date: 07/11/20 07:00 Proposed Procedures p Portacath Placement(Not Applicable) - Travis Vang MD s PEG Tube Insertion(Not Applicable) - Travis Vang MD
[2020-07-18] MEDS: tamsulosin 0.4 mg Capsule 0.8 MG PO (08:18)
[2020-07-18] MEDS: finasteride 5 mg Tablet PO (08:19)
[2020-07-18] MEDS: folic acid 1 mg Tablet PO (08:19)
[2020-07-18] MEDS: oxyCODONE 5 mg IR Tab/Cap 10 MG PO (08:19)
[2020-07-18] MEDS: amlodipine 5 mg Tablet 2.5 MG PO (08:19)
[2020-07-18] MEDS: thiamine 100 mg Tablet PO (08:19)
[2020-07-18] MEDS: nicotine 21 mg Patch 1 PATCH TRANSDERMA (08:20)
[2020-07-18] MEDS: multivitamin therapeutic Tablet 1 TAB PO (08:20)
--- NOTE | 2020-07-18 08:53 | P.PN_ITS ---
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 The patient has no c/o from a trach standpoint and is currently receiving Chemo/XRT therapy. The patient is o/w without c/o. Vitals/I&O/Wt Last Vital Signs Temp 98.0 F 07/18/20 08:00 Pulse 84 07/18/20 08:00 Resp 17 07/18/20 08:19 BP 142/79 07/18/20 08:00 Pulse Ox 91 07/18/20 08:00 07/17/20 07/18/20 07/18/20 22:59 06:59 14:59 Intake Total 550 / 1090 Output Total 100 / 550 800 / 1350 Balance 450 / 540 -800 / -260 Weight last 48 hrs Weight 80.087 kg Physical Exam Const: COMMON NORMALS: no acute distress, average body habitus, patient oriented x3 and alert ORIENTATION/CONSCIOUSNESS: Yes oriented to person, Yes oriented to place and Yes oriented to time HENMT: COMMON NORMALS: external ears normal HEAD & SCALP: normal to inspection FACE & SINUS: normal facial exam EXTERNAL EAR: Yes external ears normal MOUTH: lip normal and tongue normal Eye: COMMON NORMALS: EOMs intact bilaterally and conjunctivae normal GENERAL EYE: appearance normal, both eyes and all related structures CONJUNCTIVA: Yes conjunctivae normal SCLERA: sclerae normal Neck/C-Spine: COMMON NORMALS: no lymphadenopathy and Thyroid normal GENERAL: Yes other (The trach site is clean, dry, and without erythema or induration.) THYROID: Thyroid normal Lymph: LYMPHATIC: no lymphadenopathy noted Resp: COMMON NORMALS: normal respiratory effort and clear to auscultation bilaterally AUSCULTATION: clear to auscultation bilaterally Cardio: COMMON NORMALS: regular rate, regular rhythm and No murmurs present (Cardio) RATE: regular rate RHYTHM: regular rhythm GI: COMMON NORMALS: Normal to inspection, nondistended, normoactive bowel sounds present Extremity: COMMON NORMALS: normal to inspection Neuro: COMMON NORMALS: patient oriented x3 and CN's II-XII intact bilaterally SENSORIUM/ORIENTATION: Yes alert, Yes oriented to person, Yes oriented to place and Yes oriented to time Psych: COMMON NORMALS: mental status grossly normal, cooperative and normal affect Skin: COMMON NORMALS: no rashes or lesions noted GENERAL SKIN EXAM: no rashes or lesions noted Data : 07/18/20 03:20 07/18/20 03:20 A&P Additional A&P Information Impression: 1) T4/Stage IV Squamous cell carcinoma of the right oral pharynx doing well POD #7 s/p tracheotomy 2) Medical 3) Social Plan: 1) The patient is to continue his chemo/XRT as previously outlined; the patient's trach was changed today; he is to f/u with me as an outpatient in 2 weeks and as needed for any problems. 2) As per Dr. Yap - the patient is being transferred to Dr. Yap's team. 3) Final discharge planning is currently underway with Social Work Service - the plan is for d/c to a shelter so that he can continue his Chemo/XRT and receive trach care Attestations Medical Necessity Statement*: The patient required admission for airway management. Procedures Procedure Narrative Procedure: verbal informed consent was obtained; the old trach was removed and was replaced with a #8 Uncuffed Shiley without difficulty; the patient tolerated the procedure well. Coding Level of Care Code Acute Mechanical Project Manager for Agustin Aaron
[2020-07-18] MEDS: ipratropium-albuterol 3 mL Neb INHALATION ×2 (08:54→14:33)
[2020-07-18] MEDS: famotidine 20 mg/2 mL INJ IVP ×2 (10:01→22:14)
--- NOTE | 2020-07-18 10:52 | P.PN_ITS ---
Subjective Subjective: Interval history: No acute events overnight. Continues to intermittently suction the airway, some thick secretions noted around it, plan for radiation again today. Medications: Reviewed: Yes Vitals/I&O/Wt Last Vital Signs Temp 98.0 F 07/18/20 08:00 Pulse 95 07/18/20 10:00 Resp 17 07/18/20 10:01 BP 125/67 07/18/20 10:00 Pulse Ox 95 07/18/20 10:00 07/17/20 07/18/20 07/18/20 22:59 06:59 14:59 Intake Total 550 / 1090 550 / 550 Output Total 100 / 550 800 / 1350 Balance 450 / 540 -800 / -260 550 / 550 Weight last 48 hrs Weight 80.087 kg Physical Exam Narrative: EXAM NARRATIVE: GEN: Awake, alert and oriented, no acute distress CVS: S1S2 N RS: CTA B/L Abd: Soft, nt/nd , bs+ EHS SPECIALIST: no focal neuro deficits Data : 07/18/20 03:20 07/18/20 03:20 A&P Assessment and plan (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 Vang and Dr. Cesar, POD #3 We will follow-up with postoperative care per surgical recommendations Chemotherapy and radiation per Dr. Krishnamurthy and Dr. Lozano next chemo cycle in 3 weeks, ongoing RT, plan for radiation treatment this afternoon. Status: Acute (2) Feeding difficulty: Patient with difficulty with feeding due to large oropharyngeal cancer, PEG tube feeding Status: Acute (3) Hypertension: Continue amlodipine 2.5 mg daily Status: Acute (4) COPD (chronic obstructive pulmonary disease): With continued tobacco abuse, nicotine patch Respiratory therapy to assess and treat Oxygen per protocol Status: Acute (5) Anxiety: Ativan PRN Status: Acute (6) BPH (benign prostatic hyperplasia): Continue home Flomax 0.4 mg daily Status: Acute (7) Rheumatoid arthritis: Previously on methotrexate, recommendation to be stopped by Dr. Krishnamurthy, oncology Status: Acute Additional A&P Information Acute hypoxic respiratory failure secondary to apnea. Not entirely sure why the patient became apneic. Per reports appeared to have been shortly after an episode of self suctioning, therefore suspect may have been a vasovagal event. He is breathing spontaneously with some supplemental oxygen. Transfer to medical floors today . Possible suicidal attempt. According to Dr. Casas's note he did not find any credible evidence of suicidal intentions. Head and neck cancer. Status post tracheostomy. Management per surgical team and Dr. Krishnamurthy. Currently ongoing chemoraditaion. S/p first cycle of chemo, next planned on 3 weeks. Ongoing RT History of COPD. No evidence of acute exacerbation. Will continue current treatments. Hypertension. Currently stable. Continue current management. Anemia. Some worsening of hemoglobin I suspect secondary to hemodilution. No evidence of bleeding. We will continue monitoring. Nutrition. I asked the nurse to decrease the volume of tube feeds and try to gr adually increase to the goal outlined by the nutritional team. History of EtOH. Currently there is no evidence of withdrawal symptoms. Ordered vitamin replacement. DVT prophylaxis. Lovenox. Discussed with Dr. Cesar. The plan of care was discussed with the patient and multidisciplinary team. Dispo: Patient lives with his daughter who works manager maritime. As such at this point in time, he is unable to demonstrate skills to take care of his PEG and trach. He is significantly deconditioned as well. Given this, he would prefer to transition to SNF prior to going home, however this is delayed by the fact that currently [place] in [place] are unable to accept new patients due to the ongoing pandemic. facilities closer to his home unable to accept due to inability to care for trach. Patient and daughter reluctant to retun home. Attestations Medical Necessity Statement*: Pending disposition, patient needs to be placed at SNF as he is unable to care for himself and there are no effective caregivers that can be with him, he is significantly deconditioned from current admission and malignancy. Placement at SNF will also need to include finding providers to be able to give him radiation treatment continuously as planned. Coding Level of Care Code Acute Still Operator Gin for charlene Plattd Diagnoses Squamous cell carcinoma of oropharynx C10.9 Feeding difficulty R63.3 Hypertension I10 COPD (chronic obstructive pulmonary disease) J44.9 Anxiety F41.9 BPH (benign prostatic hyperplasia) N40.0 Rheumatoid arthritis M06.9
[2020-07-18] MEDS: enoxaparin 40 mg/0.4 mL Syringe SUBCUT (15:07)
--- NOTE | 2020-07-18 15:10 | PC.SOCIAL ---
IMM Updated Page 2 of IMM updated and given to patient. Initialed, dated, and timed and placed back in chart.
--- NOTE | 2020-07-18 15:27 | PC.NURSE ---
Pt stable at time of transfer. Moved to med surg bed 268 via bed. Oxygen at 6 L via blow-by per trach. Denies c/o. Staff present in room during time of transfer.
--- NOTE | 2020-07-18 15:55 | PC.NURSE ---
UPDATE PATIENT ARRIVED TO THE FLOOR FROM ICU. REPORT GIVEN TO THIS NURSE BY GIA HAINES. PATIENT RESTING COMFORTABLY IN BED. THIS NURSE JUST SUCTIONED PATIENT. PATIENT REFUSING FEEDING AT THIS TIME. THIS NURSE WILL TRY AGAIN AT 1700. SCD'S CONNECTED. CALL LIGHT AND SUCTION IN PATIENT'S REACH.
--- NOTE | 2020-07-18 17:36 | PC.NURSE ---
SHIFT SUMMARY PATIENT HAS DONE WELL SINCE ARRIVING TO FLOOR FROM ICU. PAIN IS CONTROLLED. THIS NURSE HAS SUCCESSFULLY SUCTIONED PATIENT SEVERAL TIMES. TRACH SITE CLEANED AND NEW GAUZE SPONGE PLACED. PATIENT WAS DUE FOR A TUBE FEEDING AROUND 1700, BUT PATIENT REFUSED. HE SAID HE FEELS TOO FULL . PATIENT AGREED TO TRY FEEDING AGAIN AROUND BEDTIME. THIS NURSE ASSISTED PATIENT UP TO BEDSIDE COMMODE, BUT PATIENT WAS UNSUCCESSFUL IN HAVING A BOWEL MOVEMENT. PATIENT CURRENTLY RESTING IN BED. SCD'S CONNECTED. NO COMPLAINTS AT THIS TIME.
[2020-07-19] VITALS (13 sets, daily range): BP systolic 136–148; BP diastolic 72–78; PULSE 72–94; RESP 16–24; TEMP 36.6–37.3; O2SAT 90–96
[2020-07-19] MEDS: morphine 4 mg/mL SDV 1 mL 1 MG IVP ×4 (01:38→18:42)
[2020-07-19 05:11] LABS: Basophils % 0.2 %; Hematocrit 34.7 % (42.0-52.0); Hemoglobin 10.8 g/dL (11.7-16.6); Lymphocytes # 0.3 10^3/uL (0.8-4.8); Lymphocytes % 2.9 %; Mean Corpuscular HGB Conc 31.1 g/dL (30.0-36.0); Mean Corpuscular Hemoglobin 33.3 pg (28.0-34.0); Mean Corpuscular Volume 107.1 fL (80-94); Mean Platelet Volume 11.1 fL (7.4-10.4); Monocytes # 0.9 10^3/uL (0.2-0.9); Monocytes % 7.7 %; Neutrophils # 9.92 10^3/uL (1.8-7.7); Neutrophils % 88.3 %; Nucleated Red Blood Cells % 0 %; Platelet Count 236 10^3/cmm (130-400); Red Blood Count 3.24 10^6/uL (4.1-5.3); Red Cell Distribution Width 12.4 % (12.1-15.1); White Blood Count 11.2 10^3/uL (4.0-10.0)
[2020-07-19] MEDS: lanolin oint 7 gm 1 APPLIC TOPICAL (05:42)
[2020-07-19] MEDS: folic acid 1 mg Tablet PO (09:02)
[2020-07-19] MEDS: tamsulosin 0.4 mg Capsule 0.8 MG PO (09:02)
[2020-07-19] MEDS: oxyCODONE 5 mg IR Tab/Cap 10 MG PO ×2 (09:02→21:46)
[2020-07-19] MEDS: amlodipine 5 mg Tablet 2.5 MG PO (09:02)
[2020-07-19] MEDS: multivitamin therapeutic Tablet 1 TAB PO (09:03)
[2020-07-19] MEDS: thiamine 100 mg Tablet PO (09:03)
[2020-07-19] MEDS: finasteride 5 mg Tablet PO (09:03)
[2020-07-19] MEDS: nicotine 21 mg Patch 1 PATCH TRANSDERMA (09:03)
--- NOTE | 2020-07-19 10:58 | PC.NURSE ---
Pt taken to [facility] for radiation by EMS.
[2020-07-19] MEDS: famotidine 20 mg/2 mL INJ IVP ×2 (13:29→22:00)
[2020-07-19] MEDS: enoxaparin 40 mg/0.4 mL Syringe SUBCUT (15:34)
--- NOTE | 2020-07-19 16:16 | PM.PN ---
Subjective Subjective: Interval history: seen earlier this afternoon after returning from raditaion. Trach changed yesetrday, continues to have significant secretions. Tmax 99.7F Medications: Reviewed: Yes Vitals/I&O/Wt Last Vital Signs Temp 97.8 F 07/19/20 12:00 Pulse 94 07/19/20 15:00 Resp 20 H 07/19/20 15:39 BP 139/78 07/19/20 15:00 Pulse Ox 90 07/19/20 15:00 07/19/20 07/19/20 07/19/20 06:59 14:59 22:59 Intake Total 540 / 1090 540 / 540 Output Total 100 / 650 Balance 440 / 440 540 / 540 Weight last 48 hrs Weight 74.888 kg Physical Exam Narrative: EXAM NARRATIVE: GEN: Awake, alert and oriented, no acute distress HEENT: trach in place, being suctioned CVS: S1S2 N RS: CTA B/L Abd: Soft, nt/nd , bs+ PIVOT MAKER: no focal neuro deficits Data : 07/19/20 04:44 07/18/20 03:20 A&P Assessment and plan (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 Vang and Dr. Cesar We will follow-up with postoperative care per surgical recommendations Chemotherapy and radiation per Dr. Krishnamurthy and Dr. Lozano next chemo cycle in 3 weeks, ongoing RT, plan for radiation treatment over the next 5-6 weeks Status: Acute (2) Feeding difficulty: Patient with difficulty with feeding due to large oropharyngeal cancer, PEG tube feeding Status: Acute (3) Hypertension: Continue amlodipine 2.5 mg daily Status: Acute (4) COPD (chronic obstructive pulmonary disease): With continued tobacco abuse, nicotine patch Respiratory therapy to assess and treat Oxygen per protocol Status: Acute (5) Anxiety: Ativan PRN Status: Acute (6) BPH (benign prostatic hyperplasia): Continue home Flomax 0.4 mg daily Status: Acute (7) Rheumatoid arthritis: Previously on methotrexate, recommendation to be stopped by Dr. Krishnamurthy, oncology Status: Acute Additional A&P Information Acute hypoxic respiratory failure secondary to apnea. Not entirely sure why the patient became apneic. Per reports appeared to have been shortly after an episode of self suctioning, therefore suspect may have been a vasovagal event. He is breathing spontaneously with some supplemental oxygen. Transferred to medical floors. Tmax 99.7, 100.2 on 07/16, may be 2/2 atelactasis vs radiation. CXRP in am to evalute for possible aspiration and devloping pneumonia. Start Ceftriaxone empirically Head and neck cancer. Status post tracheostomy. Management per surgical team and Dr. Krishnamurthy. Currently ongoing chemoraditaion. S/p first cycle of chemo, next planned on 3 weeks. Ongoing RT over next 5-6 weeks. History of COPD. No evidence of acute exacerbation. Will continue current treatments. Hypertension. Currently stable. Continue current management. Anemia. Some worsening of hemoglobin I suspect secondary to hemodilution. No evidence of bleeding. We will continue monitoring. Nutrition. I asked the nurse to decrease the volume of tube feeds and try to gradually increase to the goal outlined by the nutritional team. History of EtOH. Currently there is no evidence of withdrawal symptoms. Ordered vitamin replacement. DVT prophylaxis. Lovenox. The plan of care was discussed with the patient and multidisciplinary team. Dispo: at this point in time, he is unable to demonstrate skills to take care of his PEG and trach. He is significantly deconditioned as well. Given this, he would prefer to transition to SNF prior to going home, case management working on arranging SNF transfer Attestations Medical Necessity Statement*: ongoing radiation treatment, ongoing attempts to place at SNF Coding Level of Care Code Acute Graffiti Cleaner for Agustin Aaron Diagnoses Squamous cell carcinoma of oropharynx C10.9 Feeding difficulty R63.3 Hypertension I10 COPD (chronic obstructive pulmonary disease) J44.9 Anxiety F41.9 BPH (benign prostatic hyperplasia) N40.0 Rheumatoid arthritis M06.9
[2020-07-19] MEDS: sennosides 8.6 mg Tablet 17.2 MG PO (21:46)
[2020-07-20] VITALS (17 sets, daily range): BP systolic 130–160; BP diastolic 70–80; PULSE 65–93; RESP 15–26; TEMP 36.4–37.2; O2SAT 89–99
[2020-07-20] MEDS: cefTRIAXone 1,000 MG in sodium chloride 0.9% (plus) 50 ML 100 MG IV ×2 (02:52→21:52)
[2020-07-20 04:15] LABS: Basophils % 0.2 %; Eosinophils % 0.1 %; Hematocrit 26.4 % (42.0-52.0); Hemoglobin 8.4 g/dL (11.7-16.6); Lymphocytes # 0.5 10^3/uL (0.8-4.8); Lymphocytes % 4.1 %; Mean Corpuscular HGB Conc 31.8 g/dL (30.0-36.0); Mean Corpuscular Hemoglobin 34.1 pg (28.0-34.0); Mean Corpuscular Volume 107.3 fL (80-94); Mean Platelet Volume 11.5 fL (7.4-10.4); Monocytes % 7.7 %; Neutrophils # 10.89 10^3/uL (1.8-7.7); Neutrophils % 87.2 %; Nucleated Red Blood Cells % 0 %; Platelet Count 220 10^3/cmm (130-400); Red Blood Count 2.46 10^6/uL (4.1-5.3); Red Cell Distribution Width 12.4 % (12.1-15.1); White Blood Count 12.5 10^3/uL (4.0-10.0)
[2020-07-20 04:45] LABS: Alanine Aminotransferase 14 U/L (0-41); Alkaline Phosphatase 73 IU/L (40-130); Anion Gap 10.5 (5-19); Aspartate Amino Transferase 16 U/L (0-40); Blood Urea Nitrogen 13 mg/dL (8-23); Calcium 9.2 mg/dL (8.5-10.5); Carbon Dioxide 34 mmol/L (22-29); Chloride 95 mmol/L (98-107); Globulin 2.9 g/dL (1.3-4.6); Glucose 121 mg/dL (65-115); Osmolality Calculated 283 mOsm/kg (285-295); Potassium 3.5 mmol/L (3.5-5.1); Sodium 136 mmol/L (136-145); Total Bilirubin 0.3 mg/dL (0.15-1.2); Total Protein 5.9 g/dL (6.6-8.7)
[2020-07-20] MEDS: nicotine 21 mg Patch 1 PATCH TRANSDERMA (07:24)
[2020-07-20] MEDS: famotidine 20 mg/2 mL INJ IVP ×2 (07:25→21:36)
[2020-07-20] MEDS: thiamine 100 mg Tablet PO (07:25)
[2020-07-20] MEDS: tamsulosin 0.4 mg Capsule 0.8 MG PO (07:25)
[2020-07-20] MEDS: multivitamin therapeutic Tablet 1 TAB PO (07:26)
[2020-07-20] MEDS: folic acid 1 mg Tablet PO (07:26)
[2020-07-20] MEDS: amlodipine 5 mg Tablet 2.5 MG PO (07:26)
[2020-07-20] MEDS: finasteride 5 mg Tablet PO (07:26)
[2020-07-20] MEDS: oxyCODONE 5 mg IR Tab/Cap 10 MG PO ×3 (07:30→21:51)
--- NOTE | 2020-07-20 08:00 | XR_ITS ---
WS: [id number] Portable AP upright chest, 07/20/2020 Clinical Data: concern for aspiration Comparison: Portable chest, 07/15/2020. Findings: The tracheal tube and right subclavian catheter remain in same position. There is minimal p atchy atelectasis over the surface of the right diaphragm. The diaphragms are flattened. No nodules, masses or effusions are seen. The heart is normal. The pulmonary vascularity is not increased. No pne umonia or pneumothorax is seen. The aortic arch and descending aorta show tortuosity. Monitor leads a re on the chest wall. There are decorative items overlying both areola. XR/XR chest 1V portable [id number] Impression: No change from previous portable chest.
[2020-07-20] MEDS: ipratropium-albuterol 3 mL Neb INHALATION ×3 (08:50→20:48)
--- NOTE | 2020-07-20 12:08 | PC.CHAP ---
Pastoral Care Encounter/Spiritual Assessment Type of Contact [X] Declined medical staffing coordinator visit [] Patient/Family/Request visit [] Outpatient visit [] Follow-up visit [] Physician referral [] Code/Alert [] Routine visit [] Staff referral [] Actively dying [] Patient sleeping [] Family support [] [] Out of room [] Palliative care [] [] Receiving care in room [] Pre-surgical visit [] Trauma [] Long length of stay [] ICU visit [] Other: Relational/Emotional Strength [] Patient feels connected with others/family/visitors/staff [] Distress [] Loneliness/isolation [] Abandonment Spirituality of Patient [] Person of Mary [] Attends Congregation of their Mary [] Believes in Prayer [] Reads Bible or Mu-Ism materials [] There are Spiritual issues to be addressed Fast Food Crew Member Interventions [] Prayer [] Active listening [] Non-anxious presence [] Spiritual/emotional support [] Crisis/trauma care [] Spiritual counseling [] Bereavement support [] Provided bereavement packet [] Provided Bible/devotional materials [] Provided toy/stuffed animal, coloring book to patient or family member [] Provided Communion [] Anointing/[place] [] Salvation [] Completed spiritual assessment [] Other: Impact on Illness or Injury [] Angry [] Fearful [] Anxious [] Often cries [] Exhaustion [] Unable to work [] Unable to attend bahai [] Unable to walk/stand [] Unable to read [] Unable to drive [] Unable to eat/drink [] Unable to sleep [] Unable to be with family [] Patient intubated [] Other: Summary Declined medical staffing coordinator visit Time spent with patient 5 mins
[2020-07-20] MEDS: morphine 4 mg/mL SDV 1 mL 1 MG IVP ×3 (12:16→17:37)
--- NOTE | 2020-07-20 13:06 | DCPLANNER ---
Pg 2 of IM updated and reviewed with pt. No questions, copy provided.
[2020-07-20] MEDS: enoxaparin 40 mg/0.4 mL Syringe SUBCUT (14:40)
--- NOTE | 2020-07-20 17:26 | PM.PN ---
Subjective Subjective: Interval history: tmax 99F, no new complaints, underwent RT today, still with thick copious secretions. CXR with atelactasis, no discrete pneumonia noted. Medications: Reviewed: Yes Vitals/I&O/Wt Last Vital Signs Temp 99.0 F 07/20/20 14:57 Pulse 82 07/20/20 14:57 Resp 18 07/20/20 15:29 BP 130/74 07/20/20 14:57 Pulse Ox 92 07/20/20 15:29 07/20/20 07/20/20 07/20/20 06:59 14:59 22:59 Intake Total 300 / 300 300 / 600 Output Total 300 / 700 200 / 200 400 / 600 Balance -300 / 920 100 / 100 -100 / 0 Weight last 48 hrs Weight 74.208 kg Weight 74.888 kg Physical Exam Narrative: EXAM NARRATIVE: GEN: Awake, alert and oriented, no acute distress HEENT: trach in place CVS: S1S2 N RS: CTA B/L Abd: Soft, nt/nd , bs+ , PEG in place TIMBER SKIDDER: no focal neuro deficits Data : 07/20/20 03:28 07/20/20 03:28 A&P Assessment and plan (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 Vang and Dr. Cesar We will follow-up with postoperative care per surgical recommendations Chemotherapy and radiation per Dr. Krishnamurthy and Dr. Lozano next chemo cycle in 3 weeks, ongoing RT, plan for radiation treatment over the next 5-6 weeks Status: Acute (2) Feeding difficulty: Patient with difficulty with feeding due to large oropharyngeal cancer, PEG tube feeding Status: Acute (3) Hypertension: Continue amlodipine 2.5 mg daily Status: Acute (4) COPD (chronic obstructive pulmonary disease): With continued tobacco abuse, nicotine patch Respiratory therapy to assess and treat Oxygen per protocol Status: Acute (5) Anxiety: Ativan PRN Status: Acute (6) BPH (benign prostatic hyperplasia): Continue home Flomax 0.4 mg daily Status: Acute (7) Rheumatoid arthritis: Previously on methotrexate, recommendation to be stopped by Dr. Krishnamurthy, oncology Status: Acute Additional A&P Information Acute hypoxic respiratory failure secondary to apnea. Per reports appeared to have been shortly after an episode of self suctioning, therefore suspect may have been a vasovagal event. He is breathing spontaneously with some supplemental oxygen. remains stable on room air now, no further events noted Tmax 99F . No gross pneumonia noted on CXR, however microaspiration still a possibility Head and neck cancer. Status post tracheostomy. Management per surgical team and Dr. Krishnamurthy. Currently ongoing chemoraditaion. S/p first cycle of chemo, next planned on 3 weeks. Ongoing RT over next 5-6 weeks. History of COPD. No evidence of acute exacerbation. Will continue current treatments. Hypertension. Currently stable. Continue current management. Anemia. Hb drifting to 8.4. Continue folate, MV Nutrition. currently on PEG feeding History of EtOH. Currently there is no evidence of withdrawal symptoms. Ordered vitamin replacement. DVT prophylaxis. Lovenox. The plan of care was discussed with the patient and multidisciplinary team. Dispo: at this point in time, he is unable to demonstrate skills to take care of his PEG and trach. He is significantly deconditioned as well. Given this, he would prefer to transition to SNF prior to going home, case management working on arranging SNF transfer Attestations Medical Necessity Statement*: ongoing RT, pending disposition, placement at SNF Coding Level of Care Code Acute Billing And Insurance Coordinator for Chg Fwd Diagnoses Squamous cell carcinoma of oropharynx C10.9 Feeding difficulty R63.3 Hypertension I10 COPD (chronic obstructive pulmonary disease) J44.9 Anxiety F41.9 BPH (benign prostatic hyperplasia) N40.0 Rheumatoid arthritis M06.9
[2020-07-20] MEDS: sennosides 8.6 mg Tablet 17.2 MG PO (21:51)
[2020-07-21] VITALS (13 sets, daily range): BP systolic 130–146; BP diastolic 62–77; PULSE 72–88; RESP 16–20; TEMP 36.9–37.6; O2SAT 91–99
[2020-07-21 02:15] LABS: Glucose Point of Care 104 mg/dL (70-110)
[2020-07-21] MEDS: ipratropium-albuterol 3 mL Neb INHALATION ×2 (02:15→07:55)
--- NOTE | 2020-07-21 02:39 | PC.NURSE ---
WHEN THIS NURSE ENTERED THE PATIENT ROOM ,BECAUSE HE COULD BE HEARD COUGHING FROM THE NURSES STATION, IT WAS NOTED HE WAS HAVING DIFFICULTY BREATHING. THE PATIENT WAS SAT UP AND SUCTIONED WHILE ENCOURAGING HIM TO COUGH. THE PATIENT BEGAN COUGHING AND WAS SUCTIONED THE AIRWAY WAS OBSTRUCTED. THE PATIENT THEN BEGAN TO LOOK MORE PALE AND HAD MORE SHALLOW BREATHS. WHEN ASKED IF HE FELT SHORT OF BREATH THE PATIENT RESPONDING BY NODDING HIS HEAD YES. HE ALSO WROTE HE FELT IF HE MAY PASS OUT. AT THIS TIME THIS NURSE ASKED THE ROTOR WINDER NURSE TO COME IN AND ALSO ASSESS THE PATIENT. WHILE WAITING FOR THE CHARGE NURSE RESPIRATORY THERAPY WAS ALSO CONSULTED FOR ASSISTANCE. THE PATIENT WAS HOOKED UP THE PULSE OX AND SATS WERE 86%-88% WITH HEAT HIGH FLOW AT 10 LITER OF O2. RESPIRATORY PERFORMED DEEP SUCTIONING TO TRY AND CLEAR THE AIRWAY MORE. THERE WAS ALSO A BREATHING TREATMENT ADMINISTERED IN THIS TIME. WITH THE PATIENT REPORTING THE FEELING OF PASSING OUT, BLOOD GLUCOSE WAS CHECKED AND IT WAS 107. WITH MORE SUCTIONING AND COUGHING RT TURNED THE PATIENT'S HIGH FLOW UP TO 45%. THE PATIENT WAS THEN PLACED ON A CONTINUOUS PULSE OX TO MONITOR HIS 02 SATS MORE CLOSELY. DURING THE PATIENT'S STAY THE HEAD OF THE BED HAS ALSO MAINTAINED 30 DEGREES OR ABOVE AT ALL TIMES.
[2020-07-21] MEDS: oxyCODONE 5 mg IR Tab/Cap 10 MG PO ×2 (07:47→14:19)
[2020-07-21] MEDS: nicotine 21 mg Patch 1 PATCH TRANSDERMA (08:41)
[2020-07-21] MEDS: amlodipine 5 mg Tablet 2.5 MG PO (08:44)
[2020-07-21] MEDS: thiamine 100 mg Tablet PO (08:44)
[2020-07-21] MEDS: folic acid 1 mg Tablet PO (08:45)
[2020-07-21] MEDS: multivitamin therapeutic Tablet 1 TAB PO (08:45)
[2020-07-21] MEDS: tamsulosin 0.4 mg Capsule 0.8 MG PO (08:45)
[2020-07-21] MEDS: finasteride 5 mg Tablet PO (08:45)
[2020-07-21] MEDS: famotidine 20 mg/2 mL INJ IVP ×2 (09:18→21:10)
[2020-07-21] MEDS: enoxaparin 40 mg/0.4 mL Syringe SUBCUT (14:19)
--- NOTE | 2020-07-21 14:34 | PC.NURSE ---
1118 EMS here to transport patient to [facility] for Radiation. Patient moved to side of bed with sba and then stood with SBA to [facility]. Patient did well. Will continue to monitor patient. NORBERTO, CORNELIUS
--- NOTE | 2020-07-21 14:42 | PC.NURSE ---
Patient returned from [facility] at approx. 1248. Patient assisted to bed from EMS [facility]. Patient ambulated well with SBA. Patient encouraged to sit in chair and he declined. Patient returned to bed. CORNELIUS THORNTON
--- NOTE | 2020-07-21 14:44 | PC.NURSE ---
Rounding: Patient states his pain in his neck/head is 8/10. Administered OXY as ordered in DEC. Pills were crushed and added to 30 ml of water and administered through PEG Tube. Feedings were started at 10cc/hr continuous with 100 ML Flush of H2o Q6H via Kangaroo Pump by [facility] Students and verified by myself and the Instructor Mk Munguia RN. Patient suctioned via Yanker after cough and is encouraged and taught to use the suction PRN. He gave verbal command that he was comfortable with this and teach back was observed by myself. New sponge gauze was placed at Trach site by myself and patient tolerated well. Patient's Oxygen sats are 95% on 10L and with 35% moisture applied. Will continue to closely monitor patient. CORNELIUS THORNTON
--- NOTE | 2020-07-21 16:30 | PM.PN ---
Subjective Subjective: Interval history: overnight had episode of desaturation with increased work of breathing, improved after suctioning. Underwent RT this morning. C/o bloating with bolus feeding Medications: Reviewed: Yes Vitals/I&O/Wt Last Vital Signs Temp 98.5 F 07/21/20 15:44 Pulse 81 07/21/20 15:44 Resp 18 07/21/20 15:44 BP 137/69 07/21/20 15:44 Pulse Ox 93 07/21/20 15:44 07/21/20 07/21/20 07/21/20 06:59 14:59 22:59 Intake Total 253 / 253 Output Total 400 / 1600 150 / 150 250 / 400 Balance -400 / -1000 103 / 103 -250 / -147 Weight last 48 hrs Weight 76.022 kg Weight 75.977 kg Weight 74.208 kg Physical Exam Narrative: EXAM NARRATIVE: GEN: Awake, alert and oriented, no acute distress HEENT: trach in place, thick secretions over trach CVS: S1S2 N RS: CTA B/L Abd: Soft, nt/nd , bs+ , PEG in place LIBRARY CIRCULATION DEPARTMENT CHIEF: no focal neuro deficits Data : 07/20/20 03:28 07/20/20 03:28 A&P Assessment and plan (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 Vang and Dr. Cesar Completed first cycle of chemotherapy and currently undergoing radiation treatment with daily RT over the next 5-6 weeks Patient continues to c/o pain. suboptimal control thus far. Continue oxycodone IR, change morphine to dilaudid, add toradol 15mg IVP q8h and lidocaine patch locally over right side of face . Status: Acute (2) Feeding difficulty: Patient with difficulty with feeding due to large oropharyngeal cancer, PEG tube feeding started however c/o excessive bloating and feeling full. Communicates via writing. Change tube feeding from bolus to continuous feeding- start at 10/hr, increase every 6 hrs by 10/hr with water flushes 100cc every 6 hrs Status: Acute (3) Hypertension: Continue amlodipine 2.5 mg daily Status: Acute (4) COPD (chronic obstructive pulmonary disease): With continued tobacco abuse, nicotine patch Respiratory therapy to assess and treat Oxygen per protocol Duonebs q4h scheduled add budesonide 0.5mg BID Status: Acute (5) Anxiety: Ativan PRN Status: Acute (6) BPH (benign prostatic hyperplasia): Continue home Flomax 0.4 mg daily Status: Acute (7) Rheumatoid arthritis: Previously on methotrexate, recommendation to be stopped by Dr. Krishnamurthy, oncology Status: Acute (8) Adjustment disorder: Status: Acute (9) Depression: Feels depressed and frustrated by his current state start cymbalta, will additionally help with pain Status: Acute Additional A&P Information Tmax 99F . No gross pneumonia noted on CXR, however microaspiration still a possibility DVT prophylaxis. Lovenox. Dispo: at this point in time, he is unable to demonstrate skills to take care of his PEG and trach. He is significantly deconditioned as well. Given this, he would prefer to transition to SNF prior to going home, case management working on arranging SNF transfer Attestations Medical Necessity Statement*: pain management, hypoxic episodes related to inspissation of thick secretions in trach, discharge planning Coding Level of Care Code Acute Patient Ambassador for [facility] Fwd Diagnoses Squamous cell carcinoma of oropharynx C10.9 Feeding difficulty R63.3 Hypertension I10 COPD (chronic obstructive pulmonary disease) J44.9 Anxiety F41.9 BPH (benign prostatic hyperplasia) N40.0 Rheumatoid arthritis M06.9 Adjustment disorder F43.20 Depression F32.9
[2020-07-21 20:26] LABS: Glucose Point of Care 128 mg/dL (70-110)
[2020-07-21] MEDS: cefTRIAXone 1,000 MG in sodium chloride 0.9% (plus) 50 ML 100 MG IV (21:10)
[2020-07-21] MEDS: sennosides 8.6 mg Tablet 17.2 MG PO (21:11)
[2020-07-21] MEDS: ketorolac 30 mg/mL INJ 15 MG IVP (22:33)
[2020-07-22] VITALS (22 sets, daily range): BP systolic 124–147; BP diastolic 71–77; PULSE 68–89; RESP 16–20; TEMP 36.6–37.3; O2SAT 90–96
[2020-07-22] MEDS: ipratropium-albuterol 3 mL Neb INHALATION ×7 (00:30→23:20)
[2020-07-22] MEDS: ketorolac 30 mg/mL INJ 15 MG IVP ×3 (06:14→22:06)
[2020-07-22] MEDS: budesonide 0.5 mg/2 mL Neb INHALATION ×2 (07:54→19:37)
[2020-07-22] MEDS: tamsulosin 0.4 mg Capsule 0.8 MG PO (09:54)
[2020-07-22] MEDS: finasteride 5 mg Tablet PO (09:54)
[2020-07-22] MEDS: duloxetine 30 mg Capsule PO (09:55)
[2020-07-22] MEDS: thiamine 100 mg Tablet PO (09:55)
[2020-07-22] MEDS: folic acid 1 mg Tablet PO (09:55)
[2020-07-22] MEDS: multivitamin therapeutic Tablet 1 TAB PO (09:55)
[2020-07-22] MEDS: amlodipine 5 mg Tablet 2.5 MG PO (09:56)
[2020-07-22] MEDS: nicotine 21 mg Patch 1 PATCH TRANSDERMA (09:57)
[2020-07-22] MEDS: lidocaine 5% Patch 1 PATCH TOPICAL (09:58)
[2020-07-22] MEDS: famotidine 20 mg/2 mL INJ IVP ×2 (09:59→22:06)
[2020-07-22] MEDS: oxyCODONE 5 mg IR Tab/Cap 10 MG PO (10:01)
[2020-07-22] MEDS: HYDROmorphone 1 mg/mL INJ 1 mL IVP (12:06)
--- NOTE | 2020-07-22 13:49 | PC.SOCIAL ---
IMM Updated Pg 2 IMM updated & provided a copy to pt. No questions voiced. Signed, dated, & timed copy in chart.
[2020-07-22] MEDS: enoxaparin 40 mg/0.4 mL Syringe SUBCUT (15:29)
--- NOTE | 2020-07-22 17:22 | P.PN_ITS ---
Subjective Subjective: Interval history: no acute overnight events, patient feels depressed, upset about his condition. 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 Vang and Dr. Cesar Completed first cycle of chemotherapy and currently undergoing radiation treatment with daily RT over the next 5-6 weeks Patient continues to c/o pain. Medicatiosn optimized yesetrday, will monitor for response . Continue oxycodone IR, change morphine to dilaudid, add toradol 15mg IVP q8h and lidocaine patch locally over right side of face . Status: Acute (2) Feeding difficulty: Patient with difficulty with feeding due to large oropharyngeal cancer, PEG tube feeding started however c/o excessive bloating and feeling full. Communicates via writing.Appears to be tolerating this better Status: Acute (3) Hypertension: Continue amlodipine 2.5 mg daily Status: Acute (4) COPD (chronic obstructive pulmonary disease): With continued tobacco abuse, nicotine patch Respiratory therapy to assess and treat Oxygen per protocol Duonebs q4h scheduled add budesonide 0.5mg BID Status: Acute (5) Anxiety: Ativan PRN Status: Acute (6) BPH (benign prostatic hyperplasia): Continue home Flomax 0.4 mg daily Status: Acute (7) Rheumatoid arthritis: Previously on methotrexate, recommendation to be stopped by Dr. Krishnamurthy, oncology Status: Acute (8) Adjustment disorder: Status: Acute (9) Depression: Feels depressed and frustrated by his current state start cymbalta, will additionally help with pain Status: Acute Additional A&P Information Tmax 99F . No gross pneumonia noted on CXR, however microaspiration still a possibility DVT prophylaxis. Lovenox. Dispo: at this point in time, he is unable to demonstrate skills to take care of his PEG and trach. He is significantly deconditioned as well. 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
[2020-07-22] MEDS: morphine 4 mg/mL SDV 1 mL 1 MG IVP ×2 (18:03→23:34)
[2020-07-22] MEDS: cefTRIAXone 1,000 MG in sodium chloride 0.9% (plus) 50 ML 100 MG IV (22:00)
[2020-07-22] MEDS: sennosides 8.6 mg Tablet 17.2 MG PO (22:00)
[2020-07-23] VITALS (14 sets, daily range): BP systolic 126–150; BP diastolic 57–78; PULSE 70–91; RESP 14–19; TEMP 36.2–37.2; O2SAT 91–96
[2020-07-23 05:03] LABS: Basophils % 0.2 %; Eosinophils % 0.3 %; Hematocrit 31.1 % (42.0-52.0); Hemoglobin 9.8 g/dL (11.7-16.6); Lymphocytes # 0.5 10^3/uL (0.8-4.8); Lymphocytes % 7.4 %; Mean Corpuscular HGB Conc 31.5 g/dL (30.0-36.0); Mean Corpuscular Hemoglobin 33.6 pg (28.0-34.0); Mean Corpuscular Volume 106.5 fL (80-94); Mean Platelet Volume 11.3 fL (7.4-10.4); Monocytes # 0.5 10^3/uL (0.2-0.9); Monocytes % 7.7 %; Neutrophils # 5.35 10^3/uL (1.8-7.7); Neutrophils % 84.1 %; Nucleated Red Blood Cells % 0 %; Platelet Count 204 10^3/cmm (130-400); Red Blood Count 2.92 10^6/uL (4.1-5.3); Red Cell Distribution Width 12.2 % (12.1-15.1); White Blood Count 6.4 10^3/uL (4.0-10.0)
[2020-07-23 05:24] LABS: Alanine Aminotransferase 19 U/L (0-41); Alkaline Phosphatase 74 IU/L (40-130); Anion Gap 14.8 (5-19); Aspartate Amino Transferase 15 U/L (0-40); Blood Urea Nitrogen 13 mg/dL (8-23); Calcium 8.9 mg/dL (8.5-10.5); Carbon Dioxide 30 mmol/L (22-29); Chloride 98 mmol/L (98-107); Globulin 2.9 g/dL (1.3-4.6); Glucose 135 mg/dL (65-115); Osmolality Calculated 290 mOsm/kg (285-295); Potassium 3.8 mmol/L (3.5-5.1); Sodium 139 mmol/L (136-145); Total Bilirubin 0.2 mg/dL (0.15-1.2); Total Protein 5.9 g/dL (6.6-8.7)
[2020-07-23] MEDS: ketorolac 30 mg/mL INJ 15 MG IVP ×3 (05:36→21:31)
[2020-07-23] MEDS: ipratropium-albuterol 3 mL Neb INHALATION ×4 (07:48→20:18)
[2020-07-23] MEDS: budesonide 0.5 mg/2 mL Neb INHALATION ×2 (07:48→20:18)
[2020-07-23] MEDS: multivitamin therapeutic Tablet 1 TAB PO (08:44)
[2020-07-23] MEDS: thiamine 100 mg Tablet PO (08:44)
[2020-07-23] MEDS: duloxetine 30 mg Capsule PO (08:44)
[2020-07-23] MEDS: tamsulosin 0.4 mg Capsule 0.8 MG PO (08:44)
[2020-07-23] MEDS: finasteride 5 mg Tablet PO (08:44)
[2020-07-23] MEDS: folic acid 1 mg Tablet PO (08:44)
[2020-07-23] MEDS: amlodipine 5 mg Tablet 2.5 MG PO (08:44)
[2020-07-23] MEDS: lidocaine 5% Patch 1 PATCH TOPICAL ×2 (08:45→22:33)
[2020-07-23] MEDS: nicotine 21 mg Patch 1 PATCH TRANSDERMA (08:46)
[2020-07-23] MEDS: famotidine 20 mg/2 mL INJ IVP ×2 (10:25→22:08)
[2020-07-23] MEDS: enoxaparin 40 mg/0.4 mL Syringe SUBCUT (14:43)
--- NOTE | 2020-07-23 18:54 | PM.PN ---
Subjective Subjective: Interval history: states pain is better controlled today, in better spirits today, no acute overnight events Medications: Reviewed: Yes Vitals/I&O/Wt Last Vital Signs Temp 98.9 F 07/23/20 15:06 Pulse 87 07/23/20 15:40 Resp 17 07/23/20 15:40 BP 147/73 07/23/20 15:06 Pulse Ox 94 07/23/20 15:40 07/23/20 07/23/20 07/23/20 06:59 14:59 22:59 Intake Total 900 / 900 539 / 1439 Output Total 200 / 750 0 / 0 250 / 250 Balance -200 / -260 900 / 900 289 / 1189 Weight last 48 hrs Weight 75.886 kg Weight 76.022 kg Physical Exam Narrative: EXAM NARRATIVE: GEN: Awake, alert and oriented, no acute distress HEENT: trach in place, no surrounding signs of cellulitis CVS: S1S2 N RS: CTA B/L Abd: Soft, nt/nd , bs+ 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 Vang and Dr. Cesar Completed first cycle of chemotherapy and currently undergoing radiation treatment with daily RT over the next 5-6 weeks Patient continues to c/o pain. Medicatiosn optimized yesetrday, will monitor for response . Continue oxycodone IR, changed morphine to dilaudid, add toradol 15mg IVP q8h and lidocaine patch locally over right side of face . Cymalta added additionally. Patient reports improved pain with these interventions Status: Acute (2) Feeding difficulty: Patient with difficulty with feeding due to large oropharyngeal cancer, PEG tube feeding started however c/o excessive bloating and feeling full. Communicates via writing.Appears to be tolerating this better Status: Acute (3) Hypertension: Continue amlodipine 2.5 mg daily Status: Acute (4) COPD (chronic obstructive pulmonary disease): With continued tobacco abuse, nicotine patch Respiratory therapy to assess and treat Oxygen per protocol Duonebs q4h scheduled add budesonide 0.5mg BID Status: Acute (5) Anxiety: Ativan PRN Status: Acute (6) BPH (benign prostatic hyperplasia): Continue home Flomax 0.4 mg daily Status: Acute (7) Rheumatoid arthritis: Previously on methotrexate, recommendation to be stopped by Dr. Krishnamurthy, oncology Status: Acute (8) Adjustment disorder: Status: Acute (9) Depression: Feels depressed and frustrated by his current state start cymbalta, will additionally help with pain Status: Acute Additional A&P Information Tmax 99F . No gross pneumonia noted on CXR, however microaspiration still a possibility DVT prophylaxis. Lovenox. Dispo: at this point in time, he is unable to demonstrate skills to take care of his PEG and trach. He is significantly deconditioned as well. Given this, he would prefer to transition to SNF prior to going home, case management working on arranging SNF transfer Attestations Medical Necessity Statement*: awaiting placement at SNF Coding Level of Care Code Acute Melt Supervisor for g Fwd Diagnoses Squamous cell carcinoma of oropharynx C10.9 Feeding difficulty R63.3 Hypertension I10 COPD (chronic obstructive pulmonary disease) J44.9 Anxiety F41.9 BPH (benign prostatic hyperplasia) N40.0 Rheumatoid arthritis M06.9 Adjustment disorder F43.20 Depression F32.9
[2020-07-23] MEDS: sennosides 8.6 mg Tablet 17.2 MG PO (22:32)
[2020-07-23] MEDS: cefTRIAXone 1,000 MG in sodium chloride 0.9% (plus) 50 ML 100 MG IV (22:33)
[2020-07-24] VITALS (18 sets, daily range): BP systolic 116–156; BP diastolic 71–82; PULSE 51–83; RESP 16–20; TEMP 36.8–37.8; O2SAT 90–95
[2020-07-24] MEDS: ipratropium-albuterol 3 mL Neb INHALATION ×6 (00:11→19:53)
[2020-07-24] MEDS: ketorolac 30 mg/mL INJ 15 MG IVP ×3 (05:20→21:57)
[2020-07-24] MEDS: nicotine 21 mg Patch 1 PATCH TRANSDERMA (07:38)
[2020-07-24] MEDS: lidocaine 5% Patch 1 PATCH TOPICAL (07:39)
[2020-07-24] MEDS: multivitamin therapeutic Tablet 1 TAB PO (07:40)
[2020-07-24] MEDS: finasteride 5 mg Tablet PO (07:40)
[2020-07-24] MEDS: duloxetine 30 mg Capsule PO (07:40)
[2020-07-24] MEDS: folic acid 1 mg Tablet PO (07:40)
[2020-07-24] MEDS: oxyCODONE 5 mg IR Tab/Cap 10 MG PO (07:40)
[2020-07-24] MEDS: tamsulosin 0.4 mg Capsule 0.8 MG PO (07:40)
[2020-07-24] MEDS: amlodipine 5 mg Tablet 2.5 MG PO (07:41)
[2020-07-24] MEDS: thiamine 100 mg Tablet PO (07:41)
[2020-07-24] MEDS: famotidine 20 mg/2 mL INJ IVP ×2 (07:41→21:57)
[2020-07-24] MEDS: budesonide 0.5 mg/2 mL Neb INHALATION ×2 (08:12→19:53)
--- NOTE | 2020-07-24 08:23 | DCPLANNER ---
Pg 2 of IM updated and reviewed with pt. No questions. Copy provided.
--- NOTE | 2020-07-24 12:04 | PM.PN ---
Subjective Subjective: Interval history: No acute events overnight. Vitals and labs have been reviewed. Medications: Reviewed: Yes Vitals/I&O/Wt Last Vital Signs Temp 99.2 F 07/24/20 11:09 Pulse 83 07/24/20 11:17 Resp 18 07/24/20 11:17 BP 133/82 07/24/20 11:09 Pulse Ox 91 07/24/20 11:17 07/23/20 07/24/20 07/24/20 22:59 06:59 14:59 Intake Total 539 / 1439 Output Total 450 / 450 500 / 950 300 / 300 Balance 89 / 989 -500 / 489 -300 / -300 Weight last 48 hrs Weight 70.307 kg Weight 75.886 kg Physical Exam Narrative: EXAM NARRATIVE: EXAM NARRATIVE: GEN: Awake, alert and oriented, no acute distress HEENT: trach in place, no surrounding signs of cellulitis CVS: S1S2 N RS: CTA B/L Abd: Soft, nt/nd , bs+ 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 Vang and Dr. Cesar Completed first cycle of chemotherapy and currently undergoing radiation treatment with daily RT over the next 5-6 weeks Patient continues to c/o pain. Medicatiosn optimized yesetrday, will monitor for response . Continue oxycodone IR, changed morphine to dilaudid, add toradol 15mg IVP q8h and lidocaine patch locally over right side of face . Cymalta added additionally. Patient reports improved pain with these interventions Status: Acute (2) Feeding difficulty: Patient with difficulty with feeding due to large oropharyngeal cancer, PEG tube feeding started however c/o excessive bloating and feeling full. Communicates via writing.Appears to be tolerating this better Status: Acute (3) Hypertension: Continue amlodipine 2.5 mg daily Status: Acute (4) COPD (chronic obstructive pulmonary disease): With continued tobacco abuse, nicotine patch Respiratory therapy to assess and treat Oxygen per protocol Duonebs q4h scheduled add budesonide 0.5mg BID Status: Acute (5) Anxiety: Ativan PRN Status: Acute (6) BPH (benign prostatic hyperplasia): Continue home Flomax 0.4 mg daily Status: Acute (7) Rheumatoid arthritis: Previously on methotrexate, recommendation to be stopped by Dr. Krishnamurthy, oncology Status: Acute (8) Adjustment disorder: Status: Acute (9) Depression: Feels depressed and frustrated by his current state start cymbalta, will additionally help with pain Status: Acute Additional A&P Information DVT prophylaxis. Lovenox. Dispo: at this point in time, he is unable to demonstrate skills to take care of his PEG and trach. He is significantly deconditioned as well. Given this, he would prefer to transition to SNF prior to going home, case management working on arranging SNF transfer Attestations Medical Necessity Statement*: Patient needs to be in hospital for severe deconditioning and to continue with physical therapy. He is awaiting SNF placement. 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
[2020-07-24] MEDS: HYDROmorphone 1 mg/mL INJ 1 mL IVP ×2 (12:24→22:14)
[2020-07-24] MEDS: enoxaparin 40 mg/0.4 mL Syringe SUBCUT (15:47)
[2020-07-24] MEDS: cefTRIAXone 1,000 MG in sodium chloride 0.9% (plus) 50 ML 100 MG IV (21:57)
[2020-07-24] MEDS: sennosides 8.6 mg Tablet 17.2 MG PO (21:57)
[2020-07-25] VITALS (20 sets, daily range): BP systolic 118–151; BP diastolic 70–82; PULSE 64–104; RESP 16–19; TEMP 36.6–37.2; O2SAT 88–97
[2020-07-25] MEDS: ipratropium-albuterol 3 mL Neb INHALATION ×6 (00:07→20:24)
[2020-07-25] MEDS: oxyCODONE 5 mg IR Tab/Cap 10 MG PO (05:30)
[2020-07-25] MEDS: ketorolac 30 mg/mL INJ 15 MG IVP ×3 (05:31→21:17)
[2020-07-25] MEDS: budesonide 0.5 mg/2 mL Neb INHALATION ×2 (07:37→20:24)
[2020-07-25] MEDS: lidocaine 5% Patch 1 PATCH TOPICAL (09:19)
[2020-07-25] MEDS: nicotine 21 mg Patch 1 PATCH TRANSDERMA (09:20)
[2020-07-25] MEDS: finasteride 5 mg Tablet PO (09:20)
[2020-07-25] MEDS: folic acid 1 mg Tablet PO (09:20)
[2020-07-25] MEDS: tamsulosin 0.4 mg Capsule 0.8 MG PO (09:20)
[2020-07-25] MEDS: thiamine 100 mg Tablet PO (09:21)
[2020-07-25] MEDS: multivitamin therapeutic Tablet 1 TAB PO (09:21)
[2020-07-25] MEDS: duloxetine 30 mg Capsule PO (09:21)
[2020-07-25] MEDS: amlodipine 5 mg Tablet 2.5 MG PO (09:21)
--- NOTE | 2020-07-25 09:48 | P.PN_ITS ---
Subjective Subjective: Interval history: Patient was having no complaints this morning. Vitals and labs have been reviewed. We are still waiting on the placement. 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 Vang and Dr. Cesar Completed first cycle of chemotherapy and currently undergoing radiation treatment with daily RT over the next 5-6 weeks Patient continues to c/o pain. Medicatiosn optimized yesetrday, will monitor for response . Continue oxycodone IR, changed morphine to dilaudid, add toradol 15mg IVP q8h and lidocaine patch locally over right side of face . Cymalta added additionally. Patient reports improved pain with these interventions Status: Acute (2) Feeding difficulty: Patient with difficulty with feeding due to large oropharyngeal cancer, PEG tube feeding started however c/o excessive bloating and feeling full. Communicates via writing.Appears to be tolerating this better Status: Acute (3) Hypertension: Continue amlodipine 2.5 mg daily Status: Acute (4) COPD (chronic obstructive pulmonary disease): With continued tobacco abuse, nicotine patch Respiratory therapy to assess and treat Oxygen per protocol Duonebs q4h scheduled add budesonide 0.5mg BID Status: Acute (5) Anxiety: Ativan PRN Status: Acute (6) BPH (benign prostatic hyperplasia): Continue home Flomax 0.4 mg daily Status: Acute (7) Rheumatoid arthritis: Previously on methotrexate, recommendation to be stopped by Dr. Krishnamurthy, oncology Status: Acute (8) Adjustment disorder: Status: Acute (9) Depression: Feels depressed and frustrated by his current state start cymbalta, will additionally help with pain Status: Acute Additional A&P Information DVT prophylaxis. Lovenox. Dispo: at this point in time, he is unable to demonstrate skills to take care of his PEG and trach. He is significantly deconditioned as well. Given this, he would prefer to transition to SNF prior to going home, case management working on arranging SNF transfer Attestations Medical Necessity Statement*: Patient is awaiting placement. Currently undergoing physical therapy for severe deconditioning. 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
[2020-07-25] MEDS: famotidine 20 mg/2 mL INJ IVP ×2 (10:08→21:18)
[2020-07-25] MEDS: HYDROmorphone 1 mg/mL INJ 1 mL IVP ×3 (10:51→21:17)
[2020-07-25] MEDS: enoxaparin 40 mg/0.4 mL Syringe SUBCUT (15:38)
[2020-07-25] MEDS: sennosides 8.6 mg Tablet 17.2 MG PO (21:17)
[2020-07-25] MEDS: cefTRIAXone 1,000 MG in sodium chloride 0.9% (plus) 50 ML 100 MG IV (21:18)
[2020-07-26] VITALS (22 sets, daily range): BP systolic 118–130; BP diastolic 66–77; PULSE 64–93; RESP 16–20; TEMP 36.6–37.2; O2SAT 91–98; BMI 21.8
[2020-07-26] MEDS: HYDROmorphone 1 mg/mL INJ 1 mL IVP ×3 (03:38→18:36)
[2020-07-26] MEDS: ipratropium-albuterol 3 mL Neb INHALATION ×7 (04:55→23:44)
[2020-07-26] MEDS: ketorolac 30 mg/mL INJ 15 MG IVP ×2 (05:38→14:27)
[2020-07-26] MEDS: budesonide 0.5 mg/2 mL Neb INHALATION ×2 (07:27→19:54)
[2020-07-26] MEDS: finasteride 5 mg Tablet PO (10:07)
[2020-07-26] MEDS: duloxetine 30 mg Capsule PO (10:07)
[2020-07-26] MEDS: folic acid 1 mg Tablet PO (10:08)
[2020-07-26] MEDS: tamsulosin 0.4 mg Capsule 0.8 MG PO (10:08)
[2020-07-26] MEDS: multivitamin therapeutic Tablet 1 TAB PO (10:08)
[2020-07-26] MEDS: oxyCODONE 5 mg IR Tab/Cap 10 MG PO (10:08)
[2020-07-26] MEDS: amlodipine 5 mg Tablet 2.5 MG PO (10:08)
[2020-07-26] MEDS: thiamine 100 mg Tablet PO (10:08)
[2020-07-26] MEDS: famotidine 20 mg/2 mL INJ IVP ×2 (10:11→22:01)
[2020-07-26] MEDS: lidocaine 5% Patch 1 PATCH TOPICAL ×2 (10:12→21:53)
[2020-07-26] MEDS: nicotine 21 mg Patch 1 PATCH TRANSDERMA (10:12)
--- NOTE | 2020-07-26 10:12 | DCPLANNER ---
Pg 2 of IM updated and reviewed with pt. No questions, copy provided.
[2020-07-26] MEDS: enoxaparin 40 mg/0.4 mL Syringe SUBCUT (14:30)
--- NOTE | 2020-07-26 21:06 | P.PN_ITS ---
Subjective Subjective: Interval history: No acute events overnight. Vitals and labs reviewed. 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 Vang and Dr. Cesar Completed first cycle of chemotherapy and currently undergoing radiation treatment with daily RT over the next 5-6 weeks Patient continues to c/o pain. Medicatiosn optimized yesetrday, will monitor for response . Continue oxycodone IR, changed morphine to dilaudid, add toradol 15mg IVP q8h and lidocaine patch locally over right side of face . Cymalta added additionally. Patient reports improved pain with these interventions Status: Acute (2) Feeding difficulty: Patient with difficulty with feeding due to large oropharyngeal cancer, PEG tube feeding started however c/o excessive bloating and feeling full. Communicates via writing.Appears to be tolerating this better Status: Acute (3) Hypertension: Continue amlodipine 2.5 mg daily Status: Acute (4) COPD (chronic obstructive pulmonary disease): With continued tobacco abuse, nicotine patch Respiratory therapy to assess and treat Oxygen per protocol Duonebs q4h scheduled add budesonide 0.5mg BID Status: Acute (5) Anxiety: Ativan PRN Status: Acute (6) BPH (benign prostatic hyperplasia): Continue home Flomax 0.4 mg daily Status: Acute (7) Rheumatoid arthritis: Previously on methotrexate, recommendation to be stopped by Dr. Krishnamurthy, oncology Status: Acute (8) Adjustment disorder: Status: Acute (9) Depression: Feels depressed and frustrated by his current state start cymbalta, will additionally help with pain Status: Acute Additional A&P Information DVT prophylaxis. Lovenox. Dispo: at this point in time, he is unable to demonstrate skills to take care of his PEG and trach. He is significantly deconditioned as well. Given this, he would prefer to transition to SNF prior to going home, case management working on arranging SNF transfer Attestations Medical Necessity Statement*: Patient is undergoing physical therapy and is awaiting placement. Likely he will go to home if no facility accepts. 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
[2020-07-26] MEDS: cefTRIAXone 1,000 MG in sodium chloride 0.9% (plus) 50 ML 100 MG IV (21:53)
[2020-07-26] MEDS: sennosides 8.6 mg Tablet 17.2 MG PO (21:53)
[2020-07-27] VITALS (20 sets, daily range): BP systolic 112–126; BP diastolic 61–96; PULSE 70–90; RESP 16–24; TEMP 36.6–37.4; O2SAT 90–97
[2020-07-27] MEDS: HYDROmorphone 1 mg/mL INJ 1 mL IVP ×3 (00:40→15:42)
[2020-07-27] MEDS: ipratropium-albuterol 3 mL Neb INHALATION ×5 (03:38→19:53)
[2020-07-27] MEDS: budesonide 0.5 mg/2 mL Neb INHALATION ×2 (07:24→19:53)
[2020-07-27] MEDS: amlodipine 5 mg Tablet 2.5 MG PO (09:13)
[2020-07-27] MEDS: multivitamin therapeutic Tablet 1 TAB PO (09:13)
[2020-07-27] MEDS: tamsulosin 0.4 mg Capsule 0.8 MG PO (09:13)
[2020-07-27] MEDS: duloxetine 30 mg Capsule PO (09:14)
[2020-07-27] MEDS: folic acid 1 mg Tablet PO (09:14)
[2020-07-27] MEDS: nicotine 21 mg Patch 1 PATCH TRANSDERMA (09:14)
[2020-07-27] MEDS: lidocaine 5% Patch 1 PATCH TOPICAL (09:14)
[2020-07-27] MEDS: thiamine 100 mg Tablet PO (09:14)
[2020-07-27] MEDS: finasteride 5 mg Tablet PO (09:14)
[2020-07-27] MEDS: famotidine 20 mg/2 mL INJ IVP ×2 (13:02→22:06)
[2020-07-27] MEDS: oxyCODONE 5 mg IR Tab/Cap 10 MG PO ×2 (13:12→20:19)
[2020-07-27] MEDS: enoxaparin 40 mg/0.4 mL Syringe SUBCUT (15:42)
--- NOTE | 2020-07-27 19:57 | P.PN_ITS ---
Subjective Subjective: Interval history: No acute event overnight. Patient is participating in physical therapy, and is participating in [facility]. He is continuing with his radiation therapy. Vitals and labs have been reviewed. Medications: Reviewed: Yes Vitals/I&O/Wt Last Vital Signs Temp 97.9 F 07/27/20 19:50 Pulse 77 07/27/20 19:50 Resp 17 07/27/20 19:50 BP 126/75 07/27/20 19:50 Pulse Ox 95 07/27/20 19:50 07/27/20 07/27/20 07/27/20 06:59 14:59 22:59 Intake Total 300 / 300 Output Total 200 / 600 240 / 240 300 / 540 Balance -200 / -480 60 / 60 -300 / -240 Weight last 48 hrs Weight 74.435 kg Weight 73.028 kg Physical Exam Narrative: EXAM NARRATIVE: EXAM NARRATIVE: EXAM NARRATIVE: EXAM NARRATIVE: EXAM NARRATIVE: GEN: Awake, alert and oriented, no acute distress HEENT: trach in place, no surrounding signs of cellulitis CVS: S1S2 N RS: CTA B/L Abd: Soft, nt/nd , bs+ FOURCHETTE SEWER: no 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 Vang and Dr. Cesar Completed first cycle of chemotherapy and currently undergoing radiation treatment with daily RT over the next 5-6 weeks Patient continues to c/o pain. Medicatiosn optimized yesetrday, will monitor for response . Continue oxycodone IR, changed morphine to dilaudid, add toradol 15mg IVP q8h and lidocaine patch locally over right side of face . Cymalta added additionally. Patient reports improved pain with these interventions Status: Acute (2) Feeding difficulty: Patient with difficulty with feeding due to large oropharyngeal cancer, P EG tube feeding started however c/o excessive bloating and feeling full. Communicates via writing.Appears to be tolerating this better Status: Acute (3) Hypertension: Continue amlodipine 2.5 mg daily Status: Acute (4) COPD (chronic obstructive pulmonary disease): With continued tobacco abuse, nicotine patch Respiratory therapy to assess and treat Oxygen per protocol Duonebs q4h scheduled add budesonide 0.5mg BID Status: Acute (5) Anxiety: Ativan PRN Status: Acute (6) BPH (benign prostatic hyperplasia): Continue home Flomax 0.4 mg daily Status: Acute (7) Rheumatoid arthritis: Previously on methotrexate, recommendation to be stopped by Dr. Krishnamurthy, oncology Status: Acute (8) Adjustment disorder: Status: Acute (9) Depression: Feels depressed and frustrated by his current state start cymbalta, will additionally help with pain Status: Acute Additional A&P Information DVT prophylaxis. Lovenox. Dispo: at this point in time, he is unable to demonstrate skills to take care of his PEG and trach. He is significantly deconditioned as well. Given this, he would prefer to transition to SNF prior to going home, case management working on arranging SNF transfer Attestations Medical Necessity Statement*: at this point in time, he is unable to demonst rate skills to take care of his PEG and trach. He is significantly deconditioned as well. 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
[2020-07-27] MEDS: sennosides 8.6 mg Tablet 17.2 MG PO (20:20)
[2020-07-27] MEDS: cefTRIAXone 1,000 MG in sodium chloride 0.9% (plus) 50 ML 100 MG IV (22:06)
[2020-07-28] VITALS (22 sets, daily range): BP systolic 106–132; BP diastolic 59–75; PULSE 60–84; RESP 16–20; TEMP 36.3–37.3; O2SAT 90–96
[2020-07-28] MEDS: ipratropium-albuterol 3 mL Neb INHALATION ×6 (00:36→20:50)
[2020-07-28] MEDS: HYDROmorphone 1 mg/mL INJ 1 mL IVP ×3 (01:45→16:23)
[2020-07-28] MEDS: oxyCODONE 5 mg IR Tab/Cap 10 MG PO ×3 (05:24→20:13)
[2020-07-28] MEDS: budesonide 0.5 mg/2 mL Neb INHALATION ×2 (07:50→20:50)
[2020-07-28] MEDS: tamsulosin 0.4 mg Capsule 0.8 MG PO (09:19)
[2020-07-28] MEDS: finasteride 5 mg Tablet PO (09:19)
[2020-07-28] MEDS: duloxetine 30 mg Capsule PO (09:19)
[2020-07-28] MEDS: multivitamin therapeutic Tablet 1 TAB PO (09:20)
[2020-07-28] MEDS: folic acid 1 mg Tablet PO (09:20)
[2020-07-28] MEDS: amlodipine 5 mg Tablet 2.5 MG PO (09:20)
[2020-07-28] MEDS: thiamine 100 mg Tablet PO (09:21)
[2020-07-28] MEDS: nicotine 21 mg Patch 1 PATCH TRANSDERMA (09:21)
[2020-07-28] MEDS: lidocaine 5% Patch 1 PATCH TOPICAL (09:22)
[2020-07-28] MEDS: famotidine 20 mg/2 mL INJ IVP ×2 (09:37→22:10)
--- NOTE | 2020-07-28 10:25 | PC.SOCIAL ---
Addendum entered by Suzi Mejia RN 07/28/20 10:26: [facility] Update Pg. 2 of [facility] updated and reviewed with patient. Copy provided. Original Note: IMM Update Pg. 2 of [facility] updated and reviewed with patient who verbalized understanding. Copy provided.
--- NOTE | 2020-07-28 13:37 | P.PN_ITS ---
Subjective Subjective: Interval history: No acute events overnight. Vitals and labs stable. Medications: Reviewed: Yes Vitals/I&O/Wt Last Vital Signs Temp 98.2 F 07/28/20 12:00 Pulse 73 07/28/20 12:07 Resp 17 07/28/20 12:40 BP 132/75 07/28/20 12:00 Pulse Ox 92 07/28/20 12:07 07/27/20 07/28/20 07/28/20 22:59 06:59 14:59 Intake Total 0 / 300 110 / 110 Output Total 300 / 540 680 / 1220 Balance -300 / -240 -680 / -920 110 / 110 Weight last 48 hrs Weight 74.417 kg Weight 74.435 kg Physical Exam Narrative: EXAM NARRATIVE: EXAM NARRATIVE: EXAM NARRATIVE: EXAM NARRATIVE: EXAM NARRATIVE: EXAM NARRATIVE: GEN: Awake, alert and oriented, no acute dis tress HEENT: trach in place, no surrounding signs of cellulitis CVS: S1S2 N RS: CTA B/L Abd: Soft, nt/nd , bs+ 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 Vang and Dr. Cesar Completed first cycle of chemotherapy and currently undergoing radiation treatment with daily RT over the next 5-6 weeks Patient continues to c/o pain. Medicatiosn optimized yesetrday, will monitor for response . Continue oxycodone IR, changed morphine to dilaudid, add toradol 15mg IVP q8h and lidocaine patch locally over right side of face . Cymalta added additionally. Patient reports improved pain with these interventions Status: Acute (2) Feeding difficulty: Patient with difficulty with feeding due to large oropharyngeal cancer, PEG tube feeding started however c/o excessive bloating and feeling full. Communicates via writing.Appears to be tolerating this better Status: Acute (3) Hypertension: Continue amlodipine 2.5 mg daily Status: Acute (4) COPD (chronic obstructive pulmonary disease): With continued tobacco abuse, nicotine patch Respiratory therapy to assess and treat Oxygen per protocol Duonebs q4h scheduled add budesonide 0.5mg BID Status: Acute (5) Anxiety: Ativan PRN Status: Acute (6) BPH (benign prostatic hyperplasia): Continue home Flomax 0.4 mg daily Status: Acute (7) Rheumatoid arthritis: Previously on methotrexate, recommendation to be stopped by Dr. Krishnamurthy, oncology Status: Acute (8) Adjustment disorder: Status: Acute (9) Depression: Feels depressed and frustrated by his current state start cymbalta, will additionally help with pain Status: Acute Additional A&P Information DVT prophylaxis. Lovenox. Dispo: at this point in time, he is unable to demonstrate skills to take care of his PEG and trach. He is significantly deconditioned as well. Given this, he would prefer to transition to SNF prior to going home, case management working on arranging SNF transfer Attestations Medical Necessity Statement*: at this point in time, he is unable to demonstrate skills to take care of his PEG and trach. He is significantly deconditioned as well. 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
--- NOTE | 2020-07-28 15:13 | PC.CHAP ---
Pastoral Care Encounter/Spiritual Assessment Type of Contact [] Declined modeling agent visit [] Patient/Family/Request visit [] Outpatient visit [] Follow-up visit [] Physician referral [] Code/Alert [] Routine visit [] Staff referral [] Actively dying [] Patient sleeping [] Family support [] [] Out of room [] Palliative care [] [x] Receiving care in room [] Pre-surgical visit [] Trauma [x] Long length of stay [] ICU visit [] Other: Relational/Emotional Strength [] Patient feels connected with others/family/visitors/staff [] Distress [] Loneliness/isolation [] Abandonment Spirituality of Patient [] Person of Mary [] Attends Christian of their Mary [] Believes in Prayer [] Reads Bible or Church materials [] There are Spiritual issues to be addressed Frame Maker Interventions [] Prayer [] Active listening [] Non-anxious presence [] Spiritual/emotional support [] Crisis/trauma care [] Spiritual counseling [] Bereavement support [] Provided bereavement packet [] Provided Bible/devotional materials [] Provided toy/stuffed animal, coloring book to patient or family member [] Provided Communion [] Anointing/Dale [] Salvation [] Completed spiritual assessment [] Other: Impact on Illness or Injury [] Angry [] Fearful [] Anxious [] Often cries [] Exhaustion [] Unable to work [] Unable to attend shinto [] Unable to walk/stand [] Unable to read [] Unable to drive [] Unable to eat/drink [] Unable to sleep [] Unable to be with family [] Patient intubated [] Other: Summary Therapist was tending to the patient at the time of the modeling agent visit. Referred patient for a follow up visit by the next modeling agent. Patient visit attempted by Frame Maker Delfino Simental Time spent with patient 3 minutes
--- NOTE | 2020-07-28 16:09 | PC.OT ---
OT tx attempted. Pt had returned from radiation tx and was lying in bed. Pt reports no needs at this time and declines OT tx participation. He indicates he would like therapist to return tomorrow for OT tx.
[2020-07-28] MEDS: enoxaparin 40 mg/0.4 mL Syringe SUBCUT (16:27)
[2020-07-28] MEDS: sennosides 8.6 mg Tablet 17.2 MG PO (20:13)
[2020-07-28] MEDS: cefTRIAXone 1,000 MG in sodium chloride 0.9% (plus) 50 ML 100 MG IV (22:10)
[2020-07-29] VITALS (22 sets, daily range): BP systolic 103–124; BP diastolic 64–72; PULSE 66–93; RESP 16–20; TEMP 36.6–37.1; O2SAT 88–96
[2020-07-29] MEDS: ipratropium-albuterol 3 mL Neb INHALATION ×6 (00:27→19:23)
[2020-07-29] MEDS: oxyCODONE 5 mg IR Tab/Cap 10 MG PO ×2 (04:11→17:22)
[2020-07-29] MEDS: HYDROmorphone 1 mg/mL INJ 1 mL IVP ×4 (06:00→22:29)
[2020-07-29] MEDS: amlodipine 5 mg Tablet 2.5 MG PO (09:15)
[2020-07-29] MEDS: finasteride 5 mg Tablet PO (09:15)
[2020-07-29] MEDS: folic acid 1 mg Tablet PO (09:15)
[2020-07-29] MEDS: duloxetine 30 mg Capsule PO (09:15)
[2020-07-29] MEDS: thiamine 100 mg Tablet PO (09:15)
[2020-07-29] MEDS: tamsulosin 0.4 mg Capsule 0.8 MG PO (09:15)
[2020-07-29] MEDS: multivitamin therapeutic Tablet 1 TAB PO (09:20)
[2020-07-29] MEDS: lidocaine 5% Patch 1 PATCH TOPICAL ×2 (09:20→21:59)
[2020-07-29] MEDS: famotidine 20 mg/2 mL INJ IVP ×2 (09:25→22:00)
[2020-07-29] MEDS: budesonide 0.5 mg/2 mL Neb INHALATION ×2 (09:31→19:23)
[2020-07-29] MEDS: nicotine 21 mg Patch 1 PATCH TRANSDERMA (10:11)
--- NOTE | 2020-07-29 13:27 | PC.CHAP ---
Pastoral Care Encounter/Spiritual Assessment Type of Contact [] Declined flight tower dispatcher visit [] Patient/Family/Request visit [] Outpatient visit [] Follow-up visit [] Physician referral [] Code/Alert [X] Routine visit [] Staff referral [] Actively dying [] Patient sleeping [] Family support [] [] Out of room [] Palliative care [] [] Receiving care in room [] Pre-surgical visit [] Trauma [] Long length of stay [] ICU visit [] Other: Relational/Emotional Strength [] Patient feels connected with others/family/visitors/staff [] Distress [] Loneliness/isolation [] Abandonment Spirituality of Patient [] Person of Mary [] Attends Pentecostalism of their Mary [] Believes in Prayer [] Reads Bible or Confucianist materials [] There are Spiritual issues to be addressed Storage Battery Charger Interventions [] Prayer [] Active listening [] Non-anxious presence [] Spiritual/emotional support [] Crisis/trauma care [] Spiritual counseling [] Bereavement support [] Provided bereavement packet [] Provided Bible/devotional materials [] Provided toy/stuffed animal, coloring book to patient or family member [] Provided Communion [] Anointing/[place] [] Salvation [] Completed spiritual assessment [] Other: Impact on Illness or Injury [] Angry [] Fearful [] Anxious [] Often cries [] Exhaustion [] Unable to work [] Unable to attend yazidi [] Unable to walk/stand [] Unable to read [] Unable to drive [] Unable to eat/drink [] Unable to sleep [] Unable to be with family [] Patient intubated [] Other: Summary Time spent with patient
[2020-07-29] MEDS: enoxaparin 40 mg/0.4 mL Syringe SUBCUT (14:42)
--- NOTE | 2020-07-29 15:50 | PM.PN ---
Subjective Subjective: Interval history: No acute events overnight. Vitals and labs have been reviewed. Medications: Reviewed: Yes Vitals/I&O/Wt Last Vital Signs Temp 98.7 F 07/29/20 12:00 Pulse 79 07/29/20 15:20 Resp 18 07/29/20 15:20 BP 124/64 07/29/20 12:00 Pulse Ox 94 07/29/20 15:20 07/29/20 07/29/20 07/29/20 06:59 14:59 22:59 Intake Total 350 / 350 Output Total 200 / 400 775 / 775 Balance -200 / -290 -425 / -425 Weight last 48 hrs Weight 75.07 kg Weight 74.417 kg Physical Exam Narrative: EXAM NARRATIVE: Narrative EXAM NARRATIVE: EXAM NARRATIVE: EXAM NARRATIVE: EXAM NARRATIVE: EXAM NARRATIVE: EXAM NARRATIVE: GEN: Awake, alert and oriented, no acute distress HEENT: trach in place, no surrounding signs of cellulitis CVS: S1S2 N RS: CTA B/L Abd: Soft, nt/nd , bs+ INSURANCE FOLLOW UP REPRESENTATIVE: no 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 Vang and Dr. Cesar Completed first cycle of chemotherapy and currently undergoing radiation treatment with daily RT over the next 5-6 weeks Patient continues to c/o pain. Medicatiosn optimized yesetrday, will monitor for response . Continue oxycodone IR, changed morphine to dilaudid, add toradol 15mg IVP q8h and lidocaine patch locally over right side of face . Cymalta added additionally. Patient reports improved pain with these interventions Status: Acute (2) Feeding difficulty: Patient with difficulty with feeding due to large oropharyngeal cancer, PEG tube feeding started however c/o excessive bloating and feeling full. Communicates via writing.Appears to be tolerating this better Status: Acute (3) Hypertension: Continue amlodipine 2.5 mg daily Status: Acute (4) COPD (chronic obstructive pulmonary disease): With continued tobacco abuse, nicotine patch Respiratory therapy to assess and treat Oxygen per protocol Duonebs q4h scheduled add budesonide 0.5mg BID Status: Acute (5) Anxiety: Ativan PRN Status: Acute (6) BPH (benign prostatic hyperplasia): Continue home Flomax 0.4 mg daily Status: Acute (7) Rheumatoid arthritis: Previously on methotrexate, recommendation to be stopped by Dr. Krishnamurthy, oncology Status: Acute (8) Adjustment disorder: Status: Acute (9) Depression: Feels depressed and frustrated by his current state start cymbalta, will additionally help with pain Status: Acute Additional A&P Information DVT prophylaxis. Lovenox. Dispo: at this point in time, he is unable to demonstrate skills to take care of his PEG and trach. He is significantly deconditioned as well. Given this, he would prefer to transition to SNF prior to going home, case management working on arranging SNF transfer Attestations Medical Necessity Statement*: at this point in time, he is unable to demonstrate skills to take care of his PEG and trach. He is significantly deconditioned as well. Given this, he would prefer to transition to SNF prior to going home, case management working on arranging SNF transfer Coding Level of Care Code Acute Benefits Advisor for [facility] Fwd Diagnoses Squamous cell carcinoma of oropharynx C10.9 Feeding difficulty R63.3 Hypertension I10 COPD (chronic obstructive pulmonary disease) J44.9 Anxiety F41.9 BPH (benign prostatic hyperplasia) N40.0 Rheumatoid arthritis M06.9 Adjustment disorder F43.20 Depression F32.9
[2020-07-29] MEDS: cefTRIAXone 1,000 MG in sodium chloride 0.9% (plus) 50 ML 100 MG IV (21:59)
[2020-07-29] MEDS: sennosides 8.6 mg Tablet 17.2 MG PO (21:59)
[2020-07-30] VITALS (18 sets, daily range): BP systolic 119–136; BP diastolic 69–79; PULSE 67–99; RESP 16–24; TEMP 36.4–37.1; O2SAT 90–96
[2020-07-30] MEDS: ipratropium-albuterol 3 mL Neb INHALATION ×6 (00:03→23:03)
[2020-07-30] MEDS: oxyCODONE 5 mg IR Tab/Cap 10 MG PO ×2 (08:27→14:30)
[2020-07-30] MEDS: tamsulosin 0.4 mg Capsule 0.8 MG PO (08:27)
[2020-07-30] MEDS: thiamine 100 mg Tablet PO (08:27)
[2020-07-30] MEDS: folic acid 1 mg Tablet PO (08:28)
[2020-07-30] MEDS: finasteride 5 mg Tablet PO (08:28)
[2020-07-30] MEDS: multivitamin therapeutic Tablet 1 TAB PO (08:28)
[2020-07-30] MEDS: duloxetine 30 mg Capsule PO (08:28)
[2020-07-30] MEDS: amlodipine 5 mg Tablet 2.5 MG PO (08:28)
[2020-07-30] MEDS: lidocaine 5% Patch 1 PATCH TOPICAL ×2 (08:29→21:36)
[2020-07-30] MEDS: nicotine 21 mg Patch 1 PATCH TRANSDERMA (08:29)
[2020-07-30] MEDS: budesonide 0.5 mg/2 mL Neb INHALATION ×2 (08:59→19:44)
--- NOTE | 2020-07-30 10:29 | PC.SOCIAL ---
IMM Update Pg. 2of IMM updated and copy left at bedside. Patient resting with both eyes closed.
[2020-07-30] MEDS: famotidine 20 mg/2 mL INJ IVP ×2 (10:57→23:31)
[2020-07-30] MEDS: HYDROmorphone 1 mg/mL INJ 1 mL IVP ×2 (10:57→20:50)
[2020-07-30] MEDS: enoxaparin 40 mg/0.4 mL Syringe SUBCUT (14:31)
--- NOTE | 2020-07-30 21:09 | P.PN_ITS ---
Subjective Subjective: Interval history: No acute event.Vitals and lab reviewed. Medications: Reviewed: Yes Vitals/I&O/Wt Last Vital Signs Temp 98.0 F 07/30/20 20:00 Pulse 87 07/30/20 20:00 Resp 18 07/30/20 20:50 BP 121/76 07/30/20 20:00 Pulse Ox 94 07/30/20 20:50 07/30/20 07/30/20 07/30/20 06:59 14:59 22:59 Intake Total 0 / 700 550 / 550 550 / 1100 Output Total 300 / 1475 600 / 600 300 / 900 Balance -300 / -775 -50 / -50 250 / 200 Weight last 48 hrs Weight 70.624 kg Weight 75.07 kg Physical Exam Narrative: EXAM NARRATIVE: oriented, no acute distress HEENT: trach in place, no surrounding signs of cellulitis CVS: S1S2 N RS: CTA B/L Abd: Soft, nt/nd , bs+ TEST DECK SUPERVISOR: no 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 Vang and Dr. Cesar Completed first cycle of chemotherapy and currently undergoing radiation treatment with daily RT over the next 5-6 weeks Patient continues to c/o pain. Medicatiosn optimized yesetrday, will monitor for response . Continue oxycodone IR, changed morphine to dilaudid, add toradol 15mg IVP q8h and lidocaine patch locally over right side of face . Cymalta added additionally. Patient reports improved pain with these interventions Status: Acute (2) Feeding difficulty: Patient with difficulty with feeding due to large oropharyngeal cancer, PEG tube feeding started however c/o excessive bloating and feeling full. Communicates via writing.Appears to be tolerating this better Status: Acute (3) Hypertension: Continue amlodipine 2.5 mg daily Status: Acute (4) COPD (chronic obstructive pulmonary disease): With continued tobacco abuse, nicotine patch Respiratory therapy to assess and treat Oxygen per protocol Duonebs q4h scheduled add budesonide 0.5mg BID Status: Acute (5) Anxiety: Ativan PRN Status: Acute (6) BPH (benign prostatic hyperplasia): Continue home Flomax 0.4 mg daily Status: Acute (7) Rheumatoid arthritis: Previously on methotrexate, recommendation to be stopped by Dr. Krishnamurthy, oncology Status: Acute (8) Adjustment disorder: Status: Acute (9) Depression: Feels depressed and frustrated by his current state start cymbalta, will additionally help with pain Status: Acute Additional A&P Information DVT prophylaxis. Lovenox. Dispo: at this point in time, he is unable to demonstrate skills to take care of his PEG and trach. He is significantly deconditioned as well. Given this, he would prefer to transition to SNF prior to going home, case management working on arranging SNF transfer Attestations Medical Necessity Statement*: at this point in time, he is unable to demonstrate skills to take care of his PEG and trach. He is significantly deconditioned as well. Given this, he would prefer to transition to SNF prior to going home, case management working on arranging SNF transfer Coding Level of Care Code Acute Traffic Maintenance Officer for [facility] Fwd Diagnoses Squamous cell carcinoma of oropharynx C10.9 Feeding difficulty R63.3 Hypertension I10 COPD (chronic obstructive pulmonary disease) J44.9 Anxiety F41.9 BPH (benign prostatic hyperplasia) N40.0 Rheumatoid arthritis M06.9 Adjustment disorder F43.20 Depression F32.9
[2020-07-30] MEDS: cefTRIAXone 1,000 MG in sodium chloride 0.9% (plus) 50 ML 100 MG IV (23:30)
[2020-07-31] VITALS (11 sets, daily range): BP systolic 120–135; BP diastolic 67–75; PULSE 72–97; RESP 18–20; TEMP 36.6–37.1; O2SAT 90–95
[2020-07-31] MEDS: oxyCODONE 5 mg IR Tab/Cap 10 MG PO ×2 (05:52→13:15)
--- NOTE | 2020-07-31 06:15 | PC.NURSE ---
Patient had a good night, patient was able to demonstrate suctioning with out being prompted to. Patient has had pain throughout the night that was controlled by prn meds.
[2020-07-31] MEDS: budesonide 0.5 mg/2 mL Neb INHALATION (07:35)
[2020-07-31] MEDS: ipratropium-albuterol 3 mL Neb INHALATION ×2 (07:35→15:41)
[2020-07-31] MEDS: finasteride 5 mg Tablet PO (08:59)
[2020-07-31] MEDS: tamsulosin 0.4 mg Capsule 0.8 MG PO (08:59)
[2020-07-31] MEDS: folic acid 1 mg Tablet PO (08:59)
[2020-07-31] MEDS: thiamine 100 mg Tablet PO (08:59)
[2020-07-31] MEDS: amlodipine 5 mg Tablet 2.5 MG PO (08:59)
[2020-07-31] MEDS: multivitamin therapeutic Tablet 1 TAB PO (08:59)
[2020-07-31] MEDS: duloxetine 30 mg Capsule PO (08:59)
[2020-07-31] MEDS: nicotine 21 mg Patch 1 PATCH TRANSDERMA (09:00)
[2020-07-31] MEDS: lidocaine 5% Patch 1 PATCH TOPICAL (09:01)
--- NOTE | 2020-07-31 11:33 | PM.EVENT ---
Event Note Event Note: Patient is n.p.o. On discharge he requires equipment and supplies for PEG tube feeding, trach care which includes oxygen with HAG 28% FiO2 2 L.
[2020-07-31] MEDS: famotidine 20 mg/2 mL INJ IVP (12:29)
--- NOTE | 2020-07-31 14:12 | P.DS_ITS ---
Discharge Providers Date of Admission: 07/11/20 09:15 Date of Discharge: July 31, 2020 Attending Provider at Admission: Travis Vang MD Attending Provider at Discharge: Aiden Levine MD Consults: Hospitalist service. ENT: Dr. Cesar Primary Care Provider: Yesenia Lizarraga Diagnoses at Discharge Discharge Diagnosis (1) Squamous cell carcinoma of oropharynx: Status: Acute Problem details: clinical evaluation stage IVB (T4b, N1, M0), 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 Cesar, Dr. Krishnamurthy and Dr. Lozano (2) Feeding difficulty: Status: Acute (3) Hypertension: Status: Acute (4) COPD (chronic obstructive pulmonary disease): Status: Acute (5) Anxiety: Status: Acute (6) BPH (benign prostatic hyperplasia): Status: Acute (7) Rheumatoid arthritis: Status: Acute (8) Adjustment disorder: Status: Acute (9) Depression: Status: Acute Hospital Course Discharge Summary: Patient was primarily admitted under surgery but later transferred to internal medicine because of prolonged hospitalization. Stan Zacarias is a 70 year old male with a past medical history of squamous cell carcinoma of the oropharynx, hypertension, chronic bronchitis, rheumatoid arthritis that presented on July 11 for PEG tube placement as well as Port-A-Cath placement. Due to concern for oropharyngeal mass and difficult airway ENT was also available during this planned procedure and ultimately required tracheostomy during the same setting of PEG tube placement. He tolerated procedure well. During hospitalization he was started on both chemotherapy and radiation therapy. Post operatively his hospital stay was complicated by an apneic event post radiation for which she was transferred to ICU. Patient had a long hospitalization. He has underwent 1 cycles of chemotherapy and is getting ration therapy daily which will continue for next 5 to 6 weeks. He will be getting chemotherapy cycles of after every 3 weeks. Due to prolonged hospitalization and severe deconditioning patient required placement to SNF but was unable to get acceptance due to patients current treatments as well as transportation needs. Patient Is currently NPO. Peg Tube placed for nutrition purposes currently tolerating bolus feeds of 500ml at 0800 and 500ml at 1700 with 100ml H2O flushes [id number]. [facility] [place] in [place] providing tube feeds. PCP or Oncologist to adjust as appropriate. Patient has tracheostomy with O2 at 2L and FIO2 set at 28% for Heated Humidified O2. Appropriate DME has been ordered and will be provided by either DME company or Home Health services for Trach and Peg tube. A walker has also been ordered to assist with ambulation due weakness as a result of extended hospital stay. Home Health has been arranged to assist with trach care and peg tube feeding along with education and training for care of both to patient and daughter. Patient was explained in detail regarding the tracheostomy care and tube feeds. Given the prolonged hospitalization, severe deconditioning patient is a high risk of recurrent admission. Patient has appointment with Dr Cesar on 08/02 and transport has been set up. Patient also has radiation treatments this week and next round of chemo on 08/03 of which transports have been arranged. Daughter and patient have been updated on plan of care by case management. Physical Exam Narrative: EXAM NARRATIVE: General: No acute distress, AO x3 HEENT: PERRLA, pupils bilaterally equal and reactive, trach in place without any signs of cellulitis Chest: Normal vesicular breath sounds, no added sounds, equal good air entry bilaterally CVS: S1-S2 regular, no murmurs, no tachycardia, no gallops, no rubs Abdomen: Soft, nontender, no organomegaly, bowel sounds present Neuro: No focal deficits, no facial deformity, AO x3, power 5/5 in all limbs Discharge Data Data Completed and Pending: Completed Studies During Hospitalization Category Date Time Status XR chest 1V gabi ble [id number] Routine Exams 07/11/20 08:26 Completed XR chest 1V gabi ble [id number] Routine Exams 07/20/20 08:00 Completed XR chest 1V gabi ble [id number] Urgent Exams 07/15/20 10:45 Completed Vitals: Last Vital Signs Temp 98.1 F 07/31/20 12:00 Pulse 97 07/31/20 12:00 Resp 18 07/31/20 13:15 BP 120/67 07/31/20 12:00 Pulse Ox 90 07/31/20 12:00 Discharge Plan Discharge Patient Disposition: Home Health Service Condition: Stable Prescriptions: New Senna Lax 8.6 mg Tablet 17.2 mg PO BEDTIME PRN (Reason: constipation) Qty: 10 RF: 0 folic acid 1 mg Tablet 1 mg PO DAILY Qty: 30 RF: 0 duloxetine 30 mg Capsule,Delayed Release(Dr/Ec) 30 mg PO DAILY Qty: 30 RF: 0 Vitamin B-1 (mononitrate) 100 mg Tablet 100 mg PO DAILY Qty: 30 RF: 0 Thera 400 mcg Tablet 1 tab PO DAILY Qty: 30 RF: 0 Continued amlodipine 2.5 mg tablet 2.5 mg PO DAILY RF: 0 finasteride 5 mg tablet 5 mg PO DAILY RF: 0 meloxicam 15 mg tablet 15 mg PO DAILY RF: 0 budesonide-formoterol [Symbicort] 160-4.5 mcg/actuation HFA aerosol inhaler 2 puff INHALATION BID RF: 0 tamsulosin 0.4 mg capsule 0.4 mg PO DAILY RF: 0 albuterol sulfate [Ventolin HFA] 90 mcg/actuation HFA aerosol inhaler 1 inh INHALATION QID RF: 0 Spiriva Respimat 2.5 mcg/actuation mist 2 puff INHALATION DAILY RF: 0 oxycodone 10 mg Tablet 10 mg PO Q6H PRN (Reason: Pain) RF: 0 Discontinued methotrexate sodium 2.5 mg tablet 2.5 mg PO DIRECTED RF: 0 Discharge Orders: Discharge Order (Routine); Ordered 07/31/20 Ordered By: Aidne Levine Other Ambulatory Orders: DME: Miscellaneous (Order) Location: None Selected Ordered By: Aiden Levine DME: Miscellaneous (Order) Location: None Selected Ordered By: Aiden Levine DME: Miscellaneous (Order) Location: None Selected Ordered By: Pablito Cesar DME: Miscellaneous (Order) Location: None Selected Ordered By: Ellis Hall DME: Miscellaneous (Order) Location: None Selected Ordered By: Aiden Levine DME: Miscellaneous (Order) Location: None Selected Ordered By: Aiden Levine DME: Miscellaneous (Order) Location: None Selected Ordered By: Pablito Cesar DME: Miscellaneous (Order) Location: None Selected Ordered By: Pablito Cesar DME: Miscellaneous (Order) Location: None Selected Ordered By: Aiden Levine DME: Walker (Order) Location: None Selected Ordered By: Ellis Hall Referrals: Pablito Cesar MD [Physician] - 08/02/20 2:30 pm Stan Krishnamurthy MD [Hospitalist] - (Follow up as scheduled for Radiation/ Chemo and Oncologist appointments. Radiation scheduled for this week and rides arranged. Chemo scheduled on 08/03 as well.) Discharge Diet: Resume prior tube feeds Discharge Activity: Resume usual activity and Increase activity as tolerated Patient Instructions: Depression, How to Use and Care for Your PEG Tube (DC), Implanted Venous Access Port (DC), Tracheotomy (GEN) Activity Restrictions/Additional Instructions: Bolus feeds of 500 mL twice daily 100 cc free water flushes every 8 hours. Tracheostomy care as discussed in detail along with oxygen at 2 L and FiO2 of 28% for heated humidified oxygen. Haydee in Case Management has set up your rides to Radiation and for your chemo this week through [employer]. The Trip ID numbers are: Trip # [id number] [id number], [phone], and [id number]. All rides will need to be set up three business days ahead of time for your ongoing treatments. Oncology may be able to assist with setting up rides. If daughter is helping she will need to make sure and indicate ride needs to be upgraded to BLS (Basic Life Support) with biomedical scientist present due to Oxygen needs. [employer] [employer] phone # . Dr Cesar's office has arranged your ride for his appointment on 08/02/2020 at 2:30pm. You will be picked up after radiation treatments at [place] and taken to this appointment at Dr Cesar's office. HOME: [phone] is where you are getting your trach supplies/ oxygen through. [facility]: [phone] is where you are getting your Home Health through. They will be supplying some of your trach supplies such as the disposable inner cannula. This nurse has asked to see if they can help set up in home services to help with cleaning. They can keep you updated on this. [facility] [place] in [place]: [phone] is supplying your Peg Tube feeding supplies. For any questions about discharge please call Leslie Hanley, Director of Care Coordination at [facility]: [phone]. Discharge Date/Time: 07/31/20 18:45 Discharge Attestations Time Spent in Discharge Care*: greater than 30 min Specific Discharge Activities: Specific discharge activities: educating patient, educating and/or supporting family/caregiver, discussing with pcp/other providers, discussing with case liner/social workers/dc planners, documenting/other paperwork and evaluating patient/reviewing data Status at Discharge: Cognitive status at discharge: cognitively intact , Behavioral status at discharge: cooperative , Functional status at discharge: other assisted ambulation Overall status at discharge: patient has a new baseline Quality Metrics Clinical Quality Measures During this hospital stay, did patient experience: None Coding Level of Care Code Acute Electronic Components Assembler for [facility] Fwd Diagnoses Squamous cell carcinoma of oropharynx C10.9 Feeding difficulty R63.3 Hypertension I10 COPD (chronic obstructive pulmonary disease) J44.9 Anxiety F41.9 BPH (benign prostatic hyperplasia) N40.0 Rheumatoid arthritis M06.9 Adjustment disorder F43.20 Depression F32.9
[2020-07-31] MEDS: enoxaparin 40 mg/0.4 mL Syringe SUBCUT (14:58)
--- NOTE | 2020-07-31 19:12 | PC.OT ---
OT tx attempted today but pt unavailable secondary to radiation tx and preparing for discharge. Pt plans to return home today with care from family and home health services.
--- NOTE | 2020-08-22 09:26 | PC.SOCIAL ---
Tasha called from HOME to indicate Home O2 eval was never done on patient. This nurse explained this was asked more than once if required with him on trach and was told no the documentation provided was sufficient. HOME rep indicates they apologize but has realized this documentation is required. Called Oncology spoke with [place]. Patient will be coming in at 11:15am. Asked if nurse can do HOME O2 eval on patient and have documentation sent to HOME or myself to ensure O2 is covered. Asked that they do on RA and exercise test if needed. We can have RT guide if has questions. Asked [place] to have nurse give me a call if needed to ensure this is taken care of. [place] will relay message.
== END 2020-07-31 18:45 | disposition home or self-care (01) | DRG 11 ==
LOC: ICU 07-12 09:27 → MEDSURG 07-13 11:14 → ICU 07-14 14:57 → MEDSURG 07-18 15:22
PROVIDERS: Family Medicine; Internal Medicine; Specialist; Student in an Organized Health Care Education/Training Program; Admitting Provider Surgery; PCP Nurse Practitioner Family; Visit Provider Student in an Organized Health Care Education/Training Program
PROC: 02HV33Z Insertion of Infusion Device into Superior Vena Cava, Percutaneous Approach (ICD-10-PCS; principal; 2020-07-11 07:00)
PROC: 0DH63UZ Insertion of Feeding Device into Stomach, Percutaneous Approach (ICD-10-PCS; CPT 43246; 2020-07-11 07:00)
PROC: 0B110F4 Bypass Trachea to Cutaneous with Tracheostomy Device, Open Approach (ICD-10-PCS; 2020-07-11 07:00)
DX: C10.9 Malignant neoplasm of oropharynx, unspecified (principal); J96.01 Acute respiratory failure with hypoxia; F17.210 Nicotine dependence, cigarettes, uncomplicated; F10.20 Alcohol dependence, uncomplicated; R63.3 Feeding difficulties; T88.4XXA Failed or difficult intubation, initial encounter; Z79.51 Long term (current) use of inhaled steroids; Z79.891 Long term (current) use of opiate analgesic; F41.9 Anxiety disorder, unspecified; N40.0 Benign prostatic hyperplasia without lower urinary tract symptoms; J44.9 Chronic obstructive pulmonary disease, unspecified; I10 Essential (primary) hypertension; M06.9 Rheumatoid arthritis, unspecified; G89.3 Neoplasm related pain (acute) (chronic); Z79.899 Other long term (current) drug therapy; Z85.828 Personal history of other malignant neoplasm of skin; F43.20 Adjustment disorder, unspecified; D64.9 Anemia, unspecified; F32.9 Major depressive disorder, single episode, unspecified
CPT/HCPCS: 12345; 36415; 36416; 36591; 36600; 43246; 71045; 77001; 77336; 77386; 80048; 80051; 80053; 80069; 82803; 82810; 82962; 83735; 83986; 85014; 85018; 85025; 92507; 92523; 92526; 92610; 94002; 94003; 94640; 94762; 94799; 96365; 96366; 96367; 96372; 96374; 96375; 96413; 97110; 97116; 97162; 97163; 97166; 97530; 97535; C1788; J0131; J0690; J0696; J1100; J1170; J1453; J1642; J1644; J1650; J1885; J1940; J2060; J2250; J2270; J2405; J2469; J3010; J3411; J3475; J3480; J3490; J7030; J7040; J7050; J7626; J9060

== ENCOUNTER 2020-07-31 23:48 | Emergency (ER) | payer MEDICARE, MEDICAID, SELFPAY ==
[2020-07-31 23:51] VITALS: BP 118/68; PULSE 80; RESP 18; TEMP 36.6; O2SAT 92; BMI 22.4
--- NOTE | 2020-07-31 23:54 | XRR_ITS ---
PROCEDURE INFORMATION: Exam: XR Chest, 1 View Exam date and time: 08/01/2020 12:16 AM Age: 70 years old Clinical indication: Pain; Other: Hypoxia; Prior surgery; Surgery type: Trach TECHNIQUE: Imaging protocol: XR of the chest Views: 1 view. COMPARISON: CR XR chest 1V portable [id number] 07/20/2020 4:18 AM FINDINGS: Tubes, catheters and devices: Tracheostomy tube present. Right subclavian port present with the catheter tip in the superior vena cava. Note that the catheter is slightly pinched between the clavicle and the 1st rib. Lungs: No pneumonia or pulmonary edema. There is an azygos fissure, an anatomic variant. Pleural space: No pleural effusion or pneumothorax. Heart/Mediastinum: The cardiac silhouette is not enlarged. The mediastinal contours are normal. Bones/joints: No acute osseous abnormality. XR/XR chest 1V portable [id number] IMPRESSION: No acute abnormality.
[2020-08-01 00:10] LABS: ABG PCO2 41.9 mmHg (35-45); ABG PH Result 7.46 (7.35-7.45); Arterial Blood Gas Hematocrit 35.3 % (42-52); Base Excess ABG 5.1 mmol/L (-2.0-2.0); Blood Gas Allen Test Pos; Blood Gas Sample Site Radial, right; Blood Gas Sample Type Arterial; HCO3 ABG 29.5 mmol/L (22-26); PO2 ABG 69.2 mmHg (80.0-100.0)
[2020-08-01 00:49] VITALS: BP 130/74; PULSE 80; RESP 18; O2SAT 97
--- NOTE | 2020-08-01 00:52 | W.ED.GENADLT ---
HPI - General Adult General: Chief complaint: General Medical Stated complaint: LOW O2 STATS Time Seen by Provider: 08/01/20 00:01 Source: patient and EMS Mode of arrival: EMS Limitations: no limitations History of Present Illness: HPI narrative: Stan is a very nice 70-year-old male who comes in for check of his trach. Patient was just recently admitted and then discharged from the hospital for oropharyngeal cancer. Please see his notes from that visit for details. The patient's been home less than 12 hours and apparently got a low pulse ox reading by his home health nurse. She called EMS to have the patient evaluated. They state that the patient had a slightly low pulse oximetry reading but once suctioned his pulse ox came back to normal. Patient denies any chest pain, shortness of breath, fever or any other new ill type symptoms. He states he feels fine and has no complaints. EMS reports that after they suction the patient he had a stable pulse ox in the mid to upper 90s all throughout transport. The patient does wear 3 L of oxygen to his trach at home at all times. Associated symptoms: Deny chest pain, dyspnea, headache(s), nausea, rash, palpitations, syncope or vomiting Review of Systems Const: Denies: fever(s) Eyes: Denies: change in vision or blurry vision ENMT: Denies: throat pain, hoarseness or swelling of lips/tongue Card: Denies: chest pain, palpitations, syncope, pre-syncope or dyspnea on exertion Resp: Denies: dyspnea, productive cough, non-productive cough, wheezing, change in phlegm color or hemoptysis GI: Denies: abdominal pain, nausea, vomiting or diarrhea : Denies: flank pain, dysuria, urinary frequency or urinary urgency Musc: Denies: neck pain, back pain or extremity pain Skin/Breast: Denies: rash or pruritus Neuro: Denies: headache(s), numbness in extremities, weakness in extremities or dizziness Donaldo/Lymph: Denies: easy bruising, easy bleeding, petechiae or purpura All/Imm: Denies: urticaria or throat swelling [facility] ED PFSH: Medical History Anxiety BPH (benign prostatic hyperplasia) COPD (chronic obstructive pulmonary disease) Hypertension Rheumatoid arthritis 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 Cesar, Dr. Krishnamurthy and Dr. Lozano Surgical History H/O transurethral resection of prostate History of biopsy 05/31/2020 laryngoscopy with biopsy of right oropharyngeal mass History of local excision of skin lesion Family History Mother , Unknown health problems No problems noted. Father , Unknown health problems No problems noted. Denies family history of Diabetes CAD (coronary artery disease) Anesthesia complication Bleeding disorder Cancer Social History Smoking and tobacco status: current every day smoker Alcohol intake: current Alcohol intake frequency: 3 or more drinks per day Alcohol type: beer Lives independently: Yes Household members: family Marital status: Single Current occupational status: retired History of recent travel: No Physical Exam Const: COMMON NORMALS: no acute distress, patient oriented x3, no limitations and alert GENERAL APPEARANCE: cooperative HENMT: COMMON NORMALS: normocephalic, atraumatic, external ears normal, EAC's normal and Normal external nose present HEAD & SCALP: normal to inspection, normocephalic and atraumatic FACE & SINUS: normal facial exam and face symmetric NOSE: Normal external nose present and Normal nares present EXTERNAL EAR: Yes external ears normal EXTERNAL AUDITORY CANAL: EAC's normal MOUTH: Normal oral and palatal mucosa present, lip normal and tongue normal Eye: COMMON NORMALS: Equal, round and reactive pupils present and conjunctivae normal GENERAL EYE: appearance normal, both eyes and all related structures ALIGNMENT: Yes alignment normal PERIORBITAL: periorbital findings normal EYELID: eyelids normal CONJUNCTIVA: Yes conjunctivae normal SCLERA: sclerae normal PUPIL: Yes Equal, round and reactive pupils present Neck/C-Spine: COMMON NORMALS: full ROM, no lymphadenopathy, supple, no meningeal signs and no JVD GENERAL: Yes normal visual inspection, Yes trachea midline and Yes other (Trach site appears well-healed without copious discharge or sign of infection.) Chest: COMMONS NORMALS: normal inspection of the chest and normal palpation of entire chest wall Resp: COMMON NORMALS: normal respiratory effort, No retractions, No use of accessory muscles and clear to auscultation bilaterally EFFORT & INSPECTION: Yes able to speak in complete sentences and Yes symmetric chest movement AUSCULTATION: clear to auscultation bilaterally, no crackles, no rales, no rhonchi and no wheezes Cardio: COMMON NORMALS: no JVD, regular rate, regular rhythm, S1 normal heart sound present and S2 normal heart sound present RATE: regular rate RHYTHM: regular rhythm HEART SOUNDS: S1 normal heart sound present, S2 normal heart sound present, no click, no gallops, no murmurs and no rubs GI: COMMON NORMALS: Soft to palpation and No hepatosplenomegaly present PALPATION: Yes Soft to palpation, No Tenderness to palpation present (GI), No Guarding due to palpation present (GI), No Rigid due to palpation, Yes No hepatosplenomegaly present, No Hernia present, No Palpable mass present and No Pulsatile mass present : COMMON NORMALS: Yes no CVA tenderness BLADDER/KIDNEY EXAM: Yes no CVA tenderness Back/Pelvis: COMMON NORMALS: no CVA tenderness, thoracic and lumbar spine normal to inspection, no thoracic nor lumbar tenderness and thoraco-lumbar ROM normal Extremity: COMMON NORMALS: normal to inspection, full ROM, capillary refill normal, no joint enlargement, no clubbing, cyanosis or edema and no calf tenderness Neuro: COMMON NORMALS: patient oriented x3, CN's II-XII intact bilaterally, moves all extremities, no focal motor deficits and no sensory deficits noted SENSORIUM/ORIENTATION: Yes alert MENINGEAL SIGNS: Yes no meningeal signs SPEECH: speech normal Psych: COMMON NORMALS: mental status grossly normal, Normal thought process present, cooperative, normal affect, speech normal and activity/motor behavior normal SPEECH: Yes normal speech THOUGHT PROCESS: Normal thought process present Skin: COMMON NORMALS: no rashes or lesions noted, turgor normal, no jaundice, no petechiae and no mottling GENERAL SKIN EXAM: no rashes or lesions noted and turgor normal Course Vital Signs: Vital signs: Vital Signs Temperature 97.9 F 07/31/20 23:51 Pulse Rate 80 08/01/20 00:49 Respiratory Rate 18 08/01/20 00:49 Blood Pressure 130/74 08/01/20 00:49 Pulse Oximetry 97 08/01/20 00:49 MDM - General Adult MDM Narrative: Medical decision making narrative: Stan is a nice 70-year-old male who comes in with a report of hypoxia at home. His trach was suctioned and since then he has had no problem. The patient is stable on his home oxygen concentration. He knows how to suction himself at home. He declines any further work-up and wants to be discharged. He agrees to return should his symptoms change or worsen but at this time he is feeling better and would like to be discharged. Lab Data: Labs: Lab Results 07/31/20 Range/Units 00:00 Specimen Type Arterial Sample Site Radial, right ABG pH 7.46 H (7.35-7.45) ABG pCO2 41.9 (35-45) mmHg ABG pO2 69.2 L (80.0-100.0) mmH g ABG HCO3 29.5 H (22-26) mmol/L ABG Base Excess 5.1 H (-2.0-2.0) mmol/ L Tomas Test Pos Hematocrit 35.3 L (42-52) % Historical Records Administrator ID [place] Discharge Plan Discharge Patient Disposition: Home Clinical Impression: Squamous cell carcinoma of oropharynx Condition: Stable Prescriptions: No Action amlodipine 2.5 mg tablet 2.5 mg PO DAILY RF: 0 finasteride 5 mg tablet 5 mg PO DAILY RF: 0 meloxicam 15 mg tablet 15 mg PO DAILY RF: 0 budesonide-formoterol [Symbicort] 160-4.5 mcg/actuation HFA aerosol inhaler 2 puff INHALATION BID RF: 0 tamsulosin 0.4 mg capsule 0.4 mg PO DAILY RF: 0 albuterol sulfate [Ventolin HFA] 90 mcg/actuation HFA aerosol inhaler 1 inh INHALATION QID RF: 0 Spiriva Respimat 2.5 mcg/actuation mist 2 puff INHALATION DAILY RF: 0 oxycodone 10 mg Tablet 10 mg PO Q6H PRN (Reason: Pain) RF: 0 Senna Lax 8.6 mg Tablet 17.2 mg PO BEDTIME PRN (Reason: constipation) Qty: 10 RF: 0 folic acid 1 mg Tablet 1 mg PO DAILY Qty: 30 RF: 0 duloxetine 30 mg Capsule,Delayed Release(Dr/Ec) 30 mg PO DAILY Qty: 30 RF: 0 Vitamin B-1 (mononitrate) 100 mg Tablet 100 mg PO DAILY Qty: 30 RF: 0 Thera 400 mcg Tablet 1 tab PO DAILY Qty: 30 RF: 0 Discharge Orders: Discharge Order (Routine); Ordered 08/01/20 Ordered By: Nerissa Hill Referrals: Yesenia Lizarraga [Primary Care Provider] - 1-3 days Discharge Diet: Usual diet Discharge Activity: Increase activity as tolerated Patient Instructions: Tracheostomy Care (ED) Activity Restrictions/Additional Instructions: Please return to the ER immediately for any of the signs or symptoms listed on your discharge instruction sheets, worsening/changing of your symptoms, you are not getting better as quickly as expected, or for ANY other cause or concerns. Coding Level of Care Code ED Riding Double for Agustin Aaron
--- NOTE | 2020-08-01 01:59 | DCPLANNER ---
Pt is here for just a couple of hours and is d/c'd. Risk Mgr phones [facility] [employer] and it is unknown if the confusion comes from the fact that he just did go home with this same kind of transportation as auto service writer is requesting now. It takes nearly a half an hour to arrange this stretcher transport to his home at [address] [place] [address] [facility] transport - Trip ID#[id number]. [facility] states they will be calling Gopi Murdock however if we do not hear from them soon; we will call.
[2020-08-01 08:09] VITALS: BP 131/79; PULSE 79; RESP 20; O2SAT 97
== END 2020-08-01 08:46 | disposition home or self-care (01) ==
PROVIDERS: Emergency Provider Emergency Medicine; PCP Nurse Practitioner Family
DX: C10.9 Malignant neoplasm of oropharynx, unspecified (principal); J44.9 Chronic obstructive pulmonary disease, unspecified; I10 Essential (primary) hypertension; M06.9 Rheumatoid arthritis, unspecified; F17.210 Nicotine dependence, cigarettes, uncomplicated
CPT/HCPCS: 12345; 36600; 71045; 82803; 99281; 99283

== ENCOUNTER 2020-08-18 05:39 | Outpatient (RCR) | payer MEDICARE, MEDICAID, SELFPAY ==
[2020-07-18 11:57] LABS: Basophils % 0.1 %; Eosinophils % 0.1 %; Hematocrit 32.4 % (42.0-52.0); Hemoglobin 10.2 g/dL (11.7-16.6); Lymphocytes # 0.5 10^3/uL (0.8-4.8); Mean Corpuscular HGB Conc 31.5 g/dL (30.0-36.0); Mean Corpuscular Hemoglobin 33.9 pg (28.0-34.0); Mean Corpuscular Volume 107.6 fL (80-94); Mean Platelet Volume 11.2 fL (7.4-10.4); Monocytes # 0.8 10^3/uL (0.2-0.9); Monocytes % 8.9 %; Neutrophils # 8.04 10^3/uL (1.8-7.7); Neutrophils % 85.4 %; Nucleated Red Blood Cells % 0 %; Platelet Count 240 10^3/cmm (130-400); Red Blood Count 3.01 10^6/uL (4.1-5.3); Red Cell Distribution Width 12.5 % (12.1-15.1); White Blood Count 9.4 10^3/uL (4.0-10.0)
[2020-07-18 12:20] LABS: Alanine Aminotransferase 13 U/L (0-41); Albumin Level 3.2 g/dL (3.5-5.2); Alkaline Phosphatase 65 IU/L (40-130); Aspartate Amino Transferase 14 U/L (0-40); Blood Urea Nitrogen 18 mg/dL (8-23); Carbon Dioxide 33 mmol/L (22-29); Chloride 95 mmol/L (98-107); Globulin 2.9 g/dL (1.3-4.6); Glucose 214 mg/dL (65-115); Osmolality Calculated 290 mOsm/kg (285-295); Sodium 136 mmol/L (136-145); Total Bilirubin 0.3 mg/dL (0.15-1.2); Total Protein 6.1 g/dL (6.6-8.7)
[2020-08-02 11:22] LABS: Basophils % 0.4 %; Eosinophils % 0.2 %; Hematocrit 33.3 % (42.0-52.0); Hemoglobin 10.5 g/dL (11.7-16.6); Lymphocytes # 0.7 10^3/uL (0.8-4.8); Mean Corpuscular HGB Conc 31.5 g/dL (30.0-36.0); Mean Corpuscular Hemoglobin 33.2 pg (28.0-34.0); Mean Corpuscular Volume 105.4 fL (80-94); Mean Platelet Volume 11.1 fL (7.4-10.4); Monocytes # 1.1 10^3/uL (0.2-0.9); Monocytes % 22.5 %; Neutrophils # 3.03 10^3/uL (1.8-7.7); Neutrophils % 62.7 %; Nucleated Red Blood Cells % 0 %; Platelet Count 469 10^3/cmm (130-400); Red Blood Count 3.16 10^6/uL (4.1-5.3); Red Cell Distribution Width 13.2 % (12.1-15.1); White Blood Count 4.8 10^3/uL (4.0-10.0)
[2020-08-02 11:41] LABS: Alanine Aminotransferase 30 U/L (0-41); Albumin Level 3.6 g/dL (3.5-5.2); Alkaline Phosphatase 104 IU/L (40-130); Blood Urea Nitrogen 21 mg/dL (8-23); Calcium 9.3 mg/dL (8.5-10.5); Carbon Dioxide 29 mmol/L (22-29); Chloride 99 mmol/L (98-107); Globulin 3.1 g/dL (1.3-4.6); Glucose 91 mg/dL (65-115); Osmolality Calculated 291 mOsm/kg (285-295); Sodium 139 mmol/L (136-145); Total Bilirubin 0.2 mg/dL (0.15-1.2); Total Protein 6.7 g/dL (6.6-8.7)
[2020-08-02 12:52] LABS: Anion Gap 15.8 (5-19); Aspartate Amino Transferase 18 U/L (0-40); Potassium 4.8 mmol/L (3.5-5.1)
[2020-08-03] MEDS: sodium chloride 0.9% 250 ML 75 ML IV (11:15)
--- NOTE | 2020-08-03 13:18 | ONCRAD TMN_ITS ---
Radiation Oncology Weekly Treatment Management Patient: Deann Pierce MR#: [id number] : 1950 Age: 70 Sex: Male Dictated by: Dr. Bhavesh Lozano Date of Service: 08/02/2020 Referring Physician(s) : Dr. Pablito Cesar Diagnosis: C10.8 - Malignant neoplasm of overlapping sites of oropharynx, Diagnosed 07/03/2020 (Active) Stage X, T4b, N1, M0, p16+ Squamous cell carcinoma of the oropharynx. This is a 70 year-old man with squamous cell carcinoma of the right oropharynx, by clinical evaluation stage IVB (T4b, N1, M0), P 16+. Radiotherapy to date: Course: HN 2019, Treatment Site: HN 35FX, Ref. ID: [id number], Energy: 6X, Dose/Fx (cGy): 200, #Fx: 2 / 2, Dose Correction (cGy): 0, Total Dose (cGy): 400, Start Date: 07/13/2020, End Date: 07/14/2020, Elapsed Days: 1 Treatment Site: HN new CT, Ref. ID: [id number], Energy: 6X, Dose/Fx (cGy): 200, #Fx: 12 / 33, Dose Correction (cGy): 0, Total Dose (cGy): 2,400, Start Date: 07/18/2020, Elapsed Days: 15 Reason for visit: The patient is being seen today as part of their regularly scheduled weekly on treatment visits to assess for acute toxicities from radiotherapy. Interim History: The patient was recently discharged from the hospital, and reports no complaints save his frustration regarding not being able to eat or drink orally. Current Medications: AmLODIPine Besylate, cISplatin, dexamethasone Sodium Phosphate, emend, finasteride, flomax, furosemide, lORazepam, magic Mouthwash, magnesium Sulfate, meloxicam, methotrexate, oxyCODONE HCl, oxyCODONE-Acetaminophen, palonosetron HCl, potassium Chloride, prochlorperazine Maleate, spiriva HandiHaler, symbicort, ventolin HFA. Allergies: No Known Allergies Current Complaints/Review of Systems: Constitutional - Complains of change in weight in which he has lost 20 lbs. since last seen on 07/03/20. Denies fever. Patient is NPO and receives enternal feedings by [employer]. ENMT - Denies dysphagia. Neck - Complains of neck pain on the right side. Integumentary - Has redness and irritation around the trach. Vital Signs: Performed on 08/02/2020 12:14 PM BMI - 20.208 kg/m2, Height - 72.00 in, Weight - 149.0 lbs, Temperature - 97.8 f, Pulse - 85, Respiration - 20, O2 Sat - 99 %, Pain - 0 and BP - 111/ 75 mm(hg). Physical Exam: Mild skin erythema is appreciated, there is no desquamation. Performance Status: 2 - Ambulatory/capable of all self-care, unable to perform any work activities. Up and about more than 50% of waking hours. (ECOG) Lab: None pending in Radiation Oncology. Test performed on 07/18/2020 11:20 AM RBC - 3.01 10 6/ul (low), HGB - 10.2 g/dl (low), HCT - 32.4 % (low), MCV - 107.6 fl (high), MPV - 11.2 fl (high), Neutrophils - 8.04 10 3/ul (high), Lymphocytes - 0.5 10 3/ul (low), Chloride - 95 mmol/l (low), CO2 - 33 mmol/l (high), Creatinine - 0.6 mg/dl (low), Glucose - 214 mg/dl (high), Protein, Total - 6.1 g/dl (low) and Albumin - 3.2 g/dl (low). Imaging: Radiation therapy imaging related to accurate target localization (i.e. KV, MV and CBCT) was reviewed. Appropriate changes, if any, were made to ensure treatment accuracy. Plan: The patient is tolerating therapy reasonably well. Radiotherapy will continue as planned. CPT: 29308 Signed by: Dr. Bhavesh Lozano 08/03/2020 1:17:38 PM
[2020-08-03] MEDS: FUROsemide 10 mg/mL SDV 2mL 20 MG IV (14:52)
[2020-08-03] MEDS: sodium chlor 0.9% + KCl 20 mEq 20 MEQ/1,000 ML BAG 250 MEQ IV (14:53)
--- NOTE | 2020-08-07 00:03 | ONC FU_ITS ---
[facility] Patient Note Patient: Stan Zacarias Unit #: [id number]: 1950 Dictated By: Denise NiDate of Visit: Aug 03, 2020 Onc MED Follow-Up/Prog Note Chief Complaint: Squamous cell carcinoma of the oropharynx. 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 He presents with a 4-month history of oral/pharyngeal pain and difficulty swallowing. He was seen by Dr. Steve on 05/29/2020 and he was noted on exam to have a mass in the right oropharynx which was noted to extend inferiorly. His neck CT showed a large enhancing soft tissue mass centered in the right neck beginning at the right tongue base and palate teen tonsil and extending inferiorly along the pharyngeal mucosa to the level of the vocal cords. The mass was noted to extend over a distance of at least 8 cm with a maximum diameter of 3.2 cm. The mass was noted to involve the epiglottis and the right vallecula and piriform sinus. Below the hyoid cartilage it appeared to extend to the left of the midline posteriorly. The parapharyngeal fat was noted to be effaced and intubated with the soft tissue. The mass was noted to extend posteriorly to abut the prevertebral muscles. Small cervical chain lymph nodes were noted, the largest at level 2 measuring 7 mm. On 05/31/2020 he underwent laryngoscopy/esophagoscopy with biopsy of the right oropharyngeal mass. The mass was noted to have its focus on the right tonsil with extension up into the nasopharynx behind the right soft palate and down into the right lateral oropharynx and into the upper far portion of the piriform sinus. It also was noted to extend diffusely across the posterior oropharynx to at least the midline and possibly a little past the midline. It appeared to involve the area epiglottic fold on the right but the true vocal cords appeared to be normal. He also was noted to have mild esophagitis. The right and left trachea and right and left mainstem bronchi appeared normal. Pathology showed moderately differentiated squamous cell carcinoma. The P16 stain was strongly and diffusely positive. Staging PET/CT on 06/19/2020 showed a large FDG avid right oropharyngeal mass extending from the level of the nasopharynx to the supraglottic larynx measuring 3.6 x 4.7 cm, SUV 17.7. A 9 mm right level 2A lymph node was FDG positive with SUV 3.6 consistent with local metastatic disease. There was no evidence for any other metastatic involvement. Mr Zacarias is here today for followup. He is due for cycle 2 Cisplatin. He continues daily radiation. He was discharged from [facility] on 07/31/2020. He was sent home with tracheostomy with O2 at 2 L and FiO2 set at 20% for heated humidified O2. He is followed by [facility] home health services for trach and PEG tube maintenance. He was discharged with a order for a walker and a bedside commode. He was referred for retirement facility but was unable to get accepted due to his current treatments as well as transportation needs per his hospital records. He has no new concerns today. He states his pain is well controlled.. He states he is utilizing the PEG tube for nutrition. He denies any fever or chills. He denies any nausea or vomiting. He is alone at our visit today and is nonverbal because of the trach. He is attentive and answers the questions appropriately by nodding his head yes or no. He also has been given paper and pen to write. He denies any neuropathy. He states his mouth is sore. Most likely this is from the radiation. He has been given Magic mouthwash in the past and today we will add nystatin to that. He is encouraged to use it four times daily. His ECOG is 2 Past Medical History: Anxiety Benign prostatic hyypertrophy Chronic obstructive pulmonary disease Degenerative arthritis Hypertension Rheumatoid arthritis Past Surgical History: Skin cancer excision TURP PEG Tube-Dr Vang in 2019 Right Power Port-Dr Vang in 2019 Tracheotomy-Dr Cesar in 2019 Laryngoscopy/esophogoscopy in 2019 Allergies: No Known Allergies. Medications: amLODIPine Besylate 1 Tablet (of 5 mg) Tablet Oral daily Finasteride 1 Tablet (of 5 mg) Oral daily Flomax 1 Capsule (of 0.4 mg) Oral daily Meloxicam 1 Tablet (of 15 mg) Oral daily Methotrexate 1 Tablet (of 2.5 mg) Oral q 7 days oxyCODONE-Acetaminophen 1 Tablet (of 5-325 mg) Oral q 6 hours Spiriva HandiHaler 1 Capsule (of 18 mcg) Inhalation daily Symbicort 1 Puff(s) (of 160-4.5 mcg/act) Aerosol Inhalation b.i.d. Ventolin HFA 1 Puff(s) (of 108 (90 base) mcg/act) Aerosol, solution Inhalation four times a day Family History: Mr. Zacarias's mother at age 82. Mr. Zacarias's father at age 82. Both parents are , cause unknown to the patient. He has two brothers and a sister, but he has no knowledge about the status of their health. Social History: Mr. Zacarias is . He is a heavy tobacco smoker who has smoked 1.0 pack/day for 56 years. He is an active drinker.He consumes 10 drinks/day 7 days/week. 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 He has a history of smoking cigarettes for 56 years, estimated in the range of 1 pack daily, though he rolls his own. He drinks 8-10 beers daily. Review Of Symptoms: Constitutional Denies fevers, chills, night sweats. Tired recovering post hospital on 07/31/2020. Allergic/Immunologic No reactions. Eyes Denies significant visual changes. No diplopia. No amaurosis. ENMT Denies any new concerns other than mouth is sore. Hematologic/Lymphatic Denies easy bruising or bleeding. The patient denies any tender or palpable lymph nodes. Respiratory Denies dyspnea on exertion, chest pain, cough or hemoptysis. Denies orthopnea. Cardiovascular Denies anginal chest pain, palpitations or orthopnea. Gastrointestinal Denies nausea, vomiting, diarrhea, GI bleeding, or constipation. Denies change in bowel habits and/or stool color, no heartburn or early satiety. Genitourinary (M) Denies hematuria, dysuria, increased frequency, urgency, hesitancy or incontinence. Musculoskeletal Denies joint pain, swelling or redness. No decreased range of motion. Integumentary Denies chronic rashes, inflammation, ulcerations or skin changes. Neurologic Denies headache, blurred vision, and no areas of focal weakness or numbness. Requires walker for ambulation assistance. No sensory problems. Psychiatric Denies insomnia, depression, sunil or mood swings. Vital Signs: Performed on Aug 03, 2020 10:34 Height - 72.00 in Temperature - 99.0 F (HIGH) Pulse - 60 /min Respiration - 16 /min BP - 110/65 mm(hg) O2 Sat - 99 % Pain - 7,2 - Ambulatory/capable of all self-care, unable to perform any work activities. Up and about more than 50% of waking hours. (ECOG) Physical Examination: Chest Chest is symmetric without chest wall deformities. Right PowerPort site is unremarkable- it has healed well. Constitutional Alert, oriented, no acute distress. Skin pink, warm and dry. Head Normocephalic; atraumatic. Eyes Conjunctivae and sclerae are clear and without icterus. Pupils are reactive and equal. ENMT No oral exudates, ulcers, masses. He does have thrush. Trach site is clean and unremarkable today. Neck Supple without masses or thyromegaly. No jugular venous distension. Hematologic/Lymphatic No petechiae or purpura. No tender or palpable lymph nodes in the cervical or supraclavicular areas. Respiratory Lungs are clear to auscultation without rhonchi or wheezing. Cardiovascular Regular rate and rhythm of heart without murmurs,clicks, gallops or rubs. Abdomen Non-tender, non-distended, no masses or ascites. Back/Spine Non-tender to palpation. Extremities No visible deformities, no cyanosis, clubbing or edema. Musculoskeletal No tenderness or swelling, normal range of motion without obvious weakness. Integumentary No rashes or lesions. Neurologic No sensory or motor deficits, normal cerebellar function, gait not assessed. Psychiatric Alert and oriented times three. Coherent speech. Verbalizes understanding of our discussions today. Laboratory:See flow sheet and below for labs from 08/02/2020. Impression: 1. 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 2. He has difficulty swallowing and he has associated weight loss and declining performance status. 3. He continues to smoke, and he has significant ongoing alcohol use. His other medical illnesses include: 4. Hypertension. 5. COPD. 6. Degenerative arthritis and presumably rheumatoid arthritis. 7. Benign prostatic hypertrophy. The clinical findings and pathology results were reviewed with the patient per Dr Krishnamurthy and he discussed the clinical implications. 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 He was having difficulty swallowing, and he had associated weight loss and declining performance status. He was recommended to undergo chemoradiation. He has had placement of a tracheostomy and PEG tube. He began his first cycle of cisplatin on July 13, 2020. He had prolonged hospitalization and presented for PEG tube placement as well as a Port-A-Cath placement on July 11 and was discharged on July 31, 2020 with tracheostomy. He has recovered well but continues to be generally weak. Plan: 1. Proceed with cycle 2 cisplatin. 2. Aggressive antiemetics due to high risk regimen. 3. Compazine and Ativan as needed as needed antiemetics at home. 4. Labs from August 02, 2020 were reviewed in detail and discussed with Mr. Zacarias and a copy was given to him. WBC 4.8, hemoglobin 10.5, platelets 469,000 neutrophils 3000 potassium 4.8 creatinine 0.7 LFTs are normal. 5. He will continue with weekly interim counts which can be drawn here or by home health via port. 6. We will plan to see him back in 3 weeks with CBC CMP and plan for cycle 3 of cisplatin. 7. Mr. Zacarias was instructed to contact us via his daughter or other family members/support team at any time or the radiation therapists at anytime he is here of any questions or problems arise. 8. He has stopped the methotrexate. Signed By: Denise Ni-, [facility] Stan Krishnamurthy MD <<Signature on File>>
--- NOTE | 2020-08-07 12:27 | ONCRAD TMN_ITS ---
Radiation Oncology Weekly Treatment Management Patient: Deann Pierce MR#: [id number] : 1950 Age: 70 Sex: Male Dictated by: Dr. Bhavesh Lozano Date of Service: 08/07/2020 Referring Physician(s) : Dr. 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 S/P emergent tracheostomy and PEG tube. Treatment plan: 70 Gy/35 fractions concurrent with high-dose Q 3 weekly cisplatin Radiotherapy to date: Course: HN 2019, Treatment Site: HN 35FX, Ref. ID: [id number], Energy: 6X, Dose/Fx (cGy): 200, #Fx: 2 / 2, Dose Correction (cGy): 0, Total Dose (cGy): 400, Start Date: 07/13/2020, End Date: 07/14/2020, Elapsed Days: 1 Course: HN 2019, Treatment Site: HN new CT, Ref. ID: [id number], Energy: 6X, Dose/Fx (cGy): 200, #Fx: 15 / 33, Dose Correction (cGy): 0, Total Dose (cGy): 3,000, Start Date: 07/18/2020, Elapsed Days: 20 Reason for visit: The patient is being seen today as part of their regularly scheduled weekly on treatment visits to assess for acute toxicities from radiotherapy. Interim History: Patient is seen for his weekly on treatment visit, and he reports bilateral ear fullness. Tympanic membrane's are clear and nonbulging, but there does appear to have clear fluid within the middle ear bilaterally. Current Medications: AmLODIPine Besylate, cISplatin, dexamethasone Sodium Phosphate, emend, finasteride, flomax, furosemide, magic Mouthwash, magnesium Sulfate, meloxicam, methotrexate, nystatin, oxyCODONE HCl, oxyCODONE-Acetaminophen, palonosetron HCl, potassium Chloride, prochlorperazine Maleate, spiriva HandiHaler, symbicort, ventolin HFA. Allergies: No Known Allergies Current Complaints/Review of Systems: Constitutional - Complains of moderate fatigue. Denies fever, night sweats and change in weight. Patient is NPO and gave G-Tube. Patient puts in 5 cans of Enteral Nutrition. ENMT - Complains of dysphagia. Complains of ear pain in both ears. Complains of a moderate amount of sputum production in which it is thick and hard to cough up. Neck - Complains of neck pain on the right side of the neck and decreased range of motion. Integumentary - Has redness to the right side of the neck. Respiratory - Complains of dyspnea and is on 3 L 02. Vital Signs: Performed on 08/07/2020 11:55 AM BMI - 20.425 kg/m2, Height - 72.00 in, Weight - 150.6 lbs, Temperature - 98.7 f, Pulse - 80, Respiration - 20, O2 Sat - 98 %, Pain - 6 and BP - 106/ 66 mm(hg). Physical Exam: Bright erythema on the bilateral neck is appreciated, there is no evidence of moist desquamation. The external ear canal was without induration and there were no clinical exam findings consistent with otitis media bilaterally. Tympanic membranes were clear and nonbulging bilaterally. The patient did have some clear fluid in the middle ear bilaterally, but this is not consistent with an active infection. Performance Status: 3 - Capable of only limited self-care, confined to bed or chair more than 50% of waking hours. (ECOG) Lab: None pending in Radiation Oncology. Test performed on 08/02/2020 11:00 AM RBC - 3.16 10 6/ul (low), HGB - 10.5 g/dl (low), HCT - 33.3 % (low), MCV - 105.4 fl (high), Platelet Count - 469 10 3/cmm (high), MPV - 11.1 fl (high), Lymphocytes - 0.7 10 3/ul (low) and Monocytes - 1.1 10 3/ul (high). Imaging: Radiation therapy imaging related to accurate target localization (i.e. KV, MV and CBCT) was reviewed. Appropriate changes, if any, were made to ensure treatment accuracy. Plan: The patient is tolerating therapy reasonably well. Radiotherapy will continue as planned. CPT: 56963 Signed by: Dr. Bhavesh Lozano 08/07/2020 12:27:11 PM
[2020-08-10 11:02] LABS: Basophils % 0.5 %; Eosinophils % 0.2 %; Hematocrit 31.9 % (42.0-52.0); Hemoglobin 9.9 g/dL (11.7-16.6); Lymphocytes # 0.7 10^3/uL (0.8-4.8); Lymphocytes % 15.7 %; Mean Corpuscular Hemoglobin 32.9 pg (28.0-34.0); Mean Platelet Volume 10.9 fL (7.4-10.4); Monocytes # 0.5 10^3/uL (0.2-0.9); Monocytes % 12.2 %; Neutrophils # 3.02 10^3/uL (1.8-7.7); Neutrophils % 70.9 %; Nucleated Red Blood Cells % 0 %; Platelet Count 171 10^3/cmm (130-400); Red Blood Count 3.01 10^6/uL (4.1-5.3); Red Cell Distribution Width 12.8 % (12.1-15.1); White Blood Count 4.3 10^3/uL (4.0-10.0)
[2020-08-10 11:36] LABS: Alanine Aminotransferase 42 U/L (0-41); Albumin Level 3.4 g/dL (3.5-5.2); Alkaline Phosphatase 89 IU/L (40-130); Anion Gap 13.6 (5-19); Aspartate Amino Transferase 18 U/L (0-40); Blood Urea Nitrogen 21 mg/dL (8-23); Calcium 8.8 mg/dL (8.5-10.5); Carbon Dioxide 29 mmol/L (22-29); Chloride 95 mmol/L (98-107); Globulin 2.5 g/dL (1.3-4.6); Glucose 86 mg/dL (65-115); Osmolality Calculated 278 mOsm/kg (285-295); Potassium 4.6 mmol/L (3.5-5.1); Sodium 133 mmol/L (136-145); Total Bilirubin 0.2 mg/dL (0.15-1.2); Total Protein 5.9 g/dL (6.6-8.7)
--- NOTE | 2020-08-16 19:26 | ONCRAD TMN_ITS ---
Radiation Oncology Weekly Treatment Management Patient: Stan Zacarias MR#: [id number] : 1950 Age: 70 Sex: Male Dictated by: Dr. Bhavesh Lozano Date of Service: 08/15/2020 Referring Physician(s) : Dr. 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 S/P emergent tracheostomy and PEG tube. Treatment plan: 70 Gy/35 fractions concurrent with high-dose Q 3 weekly cisplatin. The patient is PEG tube dependent, and he would likely be chronically PEG tube dependent after completion of therapy. Radiotherapy to date: Course: HN 2019, Treatment Site: HN 35FX, Ref. ID: [id number], Energy: 6X, Dose/Fx (cGy): 200, #Fx: 2 / 2, Dose Correction (cGy): 0, Total Dose (cGy): 400, Start Date: 07/13/2020, End Date: 07/14/2020, Elapsed Days: HN 2019, Treatment Site: HN new CT, Ref. ID: [id number], Energy: 6X, Dose/Fx (cGy): 200, #Fx: , Dose Correction (cGy): 0, Total Dose (cGy): 4,200, Start Date: 07/18/2020, Elapsed Days: 28 Reason for visit: The patient is being seen today as part of their regularly scheduled weekly on treatment visits to assess for acute toxicities from radiotherapy. Interim History: The patient again reports frustration with oral cavity pain and thick ropey sputum. Current Medications: AmLODIPine Besylate, cISplatin, dexamethasone Sodium Phosphate, emend, finasteride, flomax, furosemide, magic Mouthwash, magnesium Sulfate, meloxicam, methotrexate, nystatin, oxyCODONE HCl, oxyCODONE-Acetaminophen, palonosetron HCl, potassium Chloride, prochlorperazine Maleate, spiriva HandiHaler, symbicort, ventolin HFA. Allergies: No Known Allergies Current Complaints/Review of Systems: Constitutional - Denies fever and night sweats. Patient is NPO and uses PEG Tube. ENMT - Complains of dysphagia, mouth dryness and sputum production which is thick and ropey. Neck - Denies neck pain. Respiratory - Complains of cough and dyspnea on 3 L of 02. Denies hemoptysis. Vital Signs: Performed on 08/15/2020 12:10 PM Height - 72.00 in, Temperature - 97.7 f, Pulse - 81, Respiration - 20, O2 Sat - 99 %, Pain - 0 and BP - 123/ 77 mm(hg). Physical Exam: Bilateral neck erythema is appreciated, and there is no evidence of oral thrush. Performance Status: 3 - Capable of only limited self-care, confined to bed or chair more than 50% of waking hours. (ECOG) Lab: None pending in Radiation Oncology. Test performed on 08/02/2020 11:00 AM RBC - 3.16 10 6/ul (low), HGB - 10.5 g/dl (low), HCT - 33.3 % (low), MCV - 105.4 fl (high), Platelet Count - 469 10 3/cmm (high), MPV - 11.1 fl (high), Lymphocytes - 0.7 10 3/ul (low) and Monocytes - 1.1 10 3/ul (high). Imaging: Radiation therapy imaging related to accurate target localization (i.e. KV, MV and CBCT) was reviewed. Appropriate changes, if any, were made to ensure treatment accuracy. Plan: The patient is tolerating therapy reasonably well. Radiotherapy will continue as planned. The patient was instructed to use Aquaphor as well as baking soda/salt swish and spit solution. CPT: 97661 Signed by: Dr. Bhavesh Lozano 08/16/2020 7:25:44 PM
[2020-08-18 10:54] LABS: Eosinophils % 1.3 %; Hematocrit 28.6 % (42.0-52.0); Lymphocytes # 0.5 10^3/uL (0.8-4.8); Lymphocytes % 19.8 %; Mean Corpuscular HGB Conc 31.5 g/dL (30.0-36.0); Mean Corpuscular Hemoglobin 32.7 pg (28.0-34.0); Mean Platelet Volume 10.6 fL (7.4-10.4); Monocytes # 0.3 10^3/uL (0.2-0.9); Monocytes % 13.5 %; Neutrophils # 1.54 10^3/uL (1.8-7.7); Nucleated Red Blood Cells % 0 %; Platelet Count 209 10^3/cmm (130-400); Red Blood Count 2.75 10^6/uL (4.1-5.3); White Blood Count 2.4 10^3/uL (4.0-10.0)
[2020-08-18 11:15] LABS: Alanine Aminotransferase 36 U/L (0-41); Albumin Level 3.4 g/dL (3.5-5.2); Alkaline Phosphatase 90 IU/L (40-130); Anion Gap 9.9 (5-19); Aspartate Amino Transferase 15 U/L (0-40); Blood Urea Nitrogen 14 mg/dL (8-23); Calcium 9.1 mg/dL (8.5-10.5); Carbon Dioxide 31 mmol/L (22-29); Chloride 94 mmol/L (98-107); Globulin 2.7 g/dL (1.3-4.6); Glucose 90 mg/dL (65-115); Osmolality Calculated 270 mOsm/kg (285-295); Potassium 4.9 mmol/L (3.5-5.1); Sodium 130 mmol/L (136-145); Total Bilirubin 0.2 mg/dL (0.15-1.2); Total Protein 6.1 g/dL (6.6-8.7)
== END 2020-08-19 23:59 | disposition home or self-care (01) ==
LOC: ONCMED 05:39
PROVIDERS: Internal Medicine Medical Oncology; Absent Provider Radiology Radiation Oncology; PCP Nurse Practitioner Family; Visit Provider Nurse Practitioner
DX: Z51.0 Encounter for antineoplastic radiation therapy (principal); Z51.11 Encounter for antineoplastic chemotherapy; C10.8 Malignant neoplasm of overlapping sites of oropharynx; L58.0 Acute radiodermatitis; Y84.2 Radiological procedure and radiotherapy as the cause of abnormal reaction of the patient, or of later complication, without mention of misadventure at the time of the procedure; F17.210 Nicotine dependence, cigarettes, uncomplicated; I10 Essential (primary) hypertension; J44.9 Chronic obstructive pulmonary disease, unspecified; Z93.1 Gastrostomy status; Z72.89 Other problems related to lifestyle; M19.90 Unspecified osteoarthritis, unspecified site; M06.9 Rheumatoid arthritis, unspecified; N40.0 Benign prostatic hyperplasia without lower urinary tract symptoms; Z79.899 Other long term (current) drug therapy
CPT/HCPCS: 36591; 77014; 77336; 77386; 77427; 80053; 85025; 96366; 96367; 96375; 96413; 99214; J1100; J1453; J1940; J2469; J3475; J3480; J7030; J7040; J7050; J9060

== ENCOUNTER 2020-09-06 05:30 | Outpatient (RCR) | payer MEDICARE, MEDICAID, SELFPAY ==
[2020-08-23 11:44] LABS: Basophils % 0.7 %; Eosinophils % 0.2 %; Hematocrit 26.5 % (42.0-52.0); Hemoglobin 8.6 g/dL (11.7-16.6); Lymphocytes # 0.3 10^3/uL (0.8-4.8); Lymphocytes % 6.1 %; Mean Corpuscular HGB Conc 32.5 g/dL (30.0-36.0); Mean Corpuscular Hemoglobin 33.2 pg (28.0-34.0); Mean Corpuscular Volume 102.3 fL (80-94); Mean Platelet Volume 10.4 fL (7.4-10.4); Monocytes % 22.6 %; Neutrophils # 3.03 10^3/uL (1.8-7.7); Neutrophils % 68.6 %; Nucleated Red Blood Cells % 0 %; Platelet Count 311 10^3/cmm (130-400); Red Blood Count 2.59 10^6/uL (4.1-5.3); Red Cell Distribution Width 13.8 % (12.1-15.1); White Blood Count 4.4 10^3/uL (4.0-10.0)
[2020-08-23 12:13] LABS: Alanine Aminotransferase 18 U/L (0-41); Albumin Level 3.3 g/dL (3.5-5.2); Alkaline Phosphatase 84 IU/L (40-130); Anion Gap 10.7 (5-19); Aspartate Amino Transferase 10 U/L (0-40); Blood Urea Nitrogen 28 mg/dL (8-23); Calcium 9.2 mg/dL (8.5-10.5); Carbon Dioxide 33 mmol/L (22-29); Chloride 91 mmol/L (98-107); Glucose 86 mg/dL (65-115); Osmolality Calculated 275 mOsm/kg (285-295); Potassium 4.7 mmol/L (3.5-5.1); Sodium 130 mmol/L (136-145); Total Bilirubin 0.2 mg/dL (0.15-1.2); Total Protein 6.3 g/dL (6.6-8.7)
--- NOTE | 2020-08-23 12:23 | ONCRAD TMN_ITS ---
Radiation Oncology Weekly Treatment Management Patient: Deann Pierce MR#: [id number] : 1950 Age: 70 Sex: Male Dictated by: Dr. Bhavesh Lozano Date of Service: 08/23/2020 Referring Physician(s) : Dr. 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 S/P emergent tracheostomy and PEG tube. Treatment plan: 70 Gy/35 fractions concurrent with high-dose Q 3 weekly cisplatin. The patient is PEG tube dependent, and he would likely be chronically PEG tube dependent after completion of therapy. Surveillance plan: -) CT of the head/neck/soft tissues to be completed 1 month after completing radiotherapy. -) PET/CT to be completed 3 months after completing radiotherapy -) History and physical inclusive of nasolaryngoscopy every 3 months. Radiotherapy to date: Course: 2019, Treatment Site: HN 35FX, Ref. ID: [id number], Energy: 6X, Dose/Fx (cGy): 200, #Fx: 2 / 2, Dose Correction (cGy): 0, Total Dose (cGy): 400, Start Date: 07/13/2020, End Date: 07/14/2020, Elapsed Days: 1 Treatment Site: HN new CT, Ref. ID: [id number], Energy: 6X, Dose/Fx (cGy): 200, #Fx: 25 / 33, Dose Correction (cGy): 0, Total Dose (cGy): 5,000, Start Date: 07/18/2020, Elapsed Days: 36 Reason for visit: The patient is being seen today as part of their regularly scheduled weekly on treatment visits to assess for acute toxicities from radiotherapy. Interim History: The patient was recently started on antibiotics as empiric therapy for aspiration pneumonia. The patient reports pain on the right side of his neck, but he declined pain management optimization. Current Medications: AmLODIPine Besylate, azithromycin, cISplatin, dexamethasone Sodium Phosphate, emend, finasteride, flomax, furosemide, magic Mouthwash, magnesium Sulfate, meloxicam, methotrexate, nystatin, oxyCODONE HCl, oxyCODONE-Acetaminophen, palonosetron HCl, potassium Chloride, prochlorperazine Maleate, spiriva HandiHaler, symbicort, ventolin HFA. Allergies: No Known Allergies Current Complaints/Review of Systems: Constitutional - Complains of fever in which he had one yesterday of 101.0* to 102.0* Started on antibiotics yesterday. Patient is NPO and receives Enteral Nutrition by PEG Tube. ENMT - Complains of dysphagia. Denies stomatitis. Neck - Denies neck pain. Integumentary - Has redness to the neck. Respiratory - Complains of a moderate cough which is productive and the color of the sputum is yellow and thick. Vital Signs: Performed on 08/23/2020 12:02 PM Height - 72.00 in, Temperature - 98.8 f, Pulse - 103, Respiration - 22, O2 Sat - 96 %, Pain - 0 and BP - 130/ 73 mm(hg). Physical Exam: Bilateral neck erythema is appreciated. There is no evidence of skin desquamation. Oral cavity reveals xerostomia, but no oral thrush or mucositis. Performance Status: 3 - Capable of only limited self-care, confined to bed or chair more than 50% of waking hours. (ECOG) Lab: None pending in Radiation Oncology. Test performed on 08/02/2020 11:00 AM RBC - 3.16 10 6/ul (low), HGB - 10.5 g/dl (low), HCT - 33.3 % (low), MCV - 105.4 fl (high), Platelet Count - 469 10 3/cmm (high), MPV - 11.1 fl (high), Lymphocytes - 0.7 10 3/ul (low) and Monocytes - 1.1 10 3/ul (high). Imaging: Radiation therapy imaging related to accurate target localization (i.e. KV, MV and CBCT) was reviewed. Appropriate changes, if any, were made to ensure treatment accuracy. Plan: The patient is tolerating therapy reasonably well. Radiotherapy will continue as planned. CPT: 01427 Signed by: Dr. Bhavesh Lozano 08/23/2020 12:21:40 PM
[2020-08-23 12:30] LABS: Slide Review Slide Review Perform
[2020-08-24] MEDS: sodium chloride 0.9% 500 ML 999 ML IV (09:28)
--- NOTE | 2020-08-24 09:50 | ONC FU_ITS ---
Dr. Krishnamurthy Patient Follow-Up Note Patient: Stan Zacarias Unit #: [id number]: 1950 Dicatated By: Stan Krishnamurthy M.D.Date of Visit:Aug 24, 2020 Onc Med Follow-up/Prog Note Chief Complaint: Squamous cell carcinoma of the oropharynx. 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 He presented with a 4-month history of oral/pharyngeal pain and difficulty swallowing. He was seen by Dr. Steve on 05/29/2020 and he was noted on exam to have a mass in the right oropharynx which was noted to extend inferiorly. His neck CT showed a large enhancing soft tissue mass centered in the right neck beginning at the right tongue base and palate teen tonsil and extending inferiorly along the pharyngeal mucosa to the level of the vocal cords. The mass was noted to extend over a distance of at least 8 cm with a maximum diameter of 3.2 cm. The mass was noted to involve the epiglottis and the right vallecula and piriform sinus. Below the hyoid cartilage it appeared to extend to the left of the midline posteriorly. The parapharyngeal fat was noted to be effaced and intubated with the soft tissue. The mass was noted to extend posteriorly to abut the prevertebral muscles. Small cervical chain lymph nodes were noted, the largest at level 2 measuring 7 mm. On 05/31/2020 he underwent laryngoscopy/esophagoscopy with biopsy of the right oropharyngeal mass. The mass was noted to have its focus on the right tonsil with extension up into the nasopharynx behind the right soft palate and down into the right lateral oropharynx and into the upper far portion of the piriform sinus. It also was noted to extend diffusely across the posterior oropharynx to at least the midline and possibly a little past the midline. It appeared to involve the area epiglottic fold on the right but the true vocal cords appeared to be normal. He also was noted to have mild esophagitis. The right and left trachea and right and left mainstem bronchi appeared normal. Pathology showed moderately differentiated squamous cell carcinoma. The P16 stain was strongly and diffusely positive. Staging PET/CT on 06/19/2020 showed a large FDG avid right oropharyngeal mass extending from the level of the nasopharynx to the supraglottic larynx measuring 3.6 x 4.7 cm, SUV 17.7. A 9 mm right level 2A lymph node was FDG positive with SUV 3.6 consistent with local metastatic disease. There was no evidence for any other metastatic involvement. His initial clinical course was complicated by threatened airway and impending respiratory failure, requiring hospital admission on 07/11/2020. He underwent direct laryngoscopy which confirmed presence of tumor extending into the right piriform sinus and distorting the airway, requiring tracheotomy. He also underwent placement of Port-A-Cath venous access device and placement of PEG tube for enteral feeding. He then began radiation concurrently with standard high-dose cisplatin chemotherapy on 07/13/2020. He had a relatively prolonged hospital course, but he was able to be discharged home on 07/31/2020. He continued his radiation, and he received cycle 2 of cisplatin on 08/03/2020. He is seen for a follow-up visit. He has been very weak generally, and he has very limited activity. ECOG score is 3. He still does not tolerate any oral intake, but he is tolerating his tube feeding well. Recently he has had fever up to 102 degrees associated with episodes of coughing and shortness of breath. This is thought to be due to mucus buildup and aspiration. He was found to be hypoxic with oxygen saturations down in the 70s on room air. He refused to go to the emergency room. His O2 sat did come up with oxygen, and his symptoms improved on antibiotic therapy. At his radiation follow-up his oxygen saturation was found to be 98% on 3 L nasal cannula. He is still weak generally. He has shortness of breath, but no chest pain. He has not been having nausea/vomiting. His bowel and bladder function remain adequate. He has pain in his neck and in his mouth/throat. He has had some headaches and he has been having some orthostatic lightheadedness. He has no numbness/paresthesia or other focal neurologic symptoms. Medications: amLODIPine Besylate 1 Tablet (of 5 mg) Tablet Oral daily, Azithromycin 7.5 mL (of 200 mg/5mL) Suspension, when reconstituted Oral daily for 4 days, Finasteride 1 Tablet (of 5 mg) Oral daily, Flomax 1 Capsule (of 0.4 mg) Oral daily, Meloxicam 1 Tablet (of 15 mg) Oral daily, Methotrexate 1 Tablet (of 2.5 mg) Oral q 7 days, oxyCODONE-Acetaminophen 1 Tablet (of 5-325 mg) Oral q 6 hours, Spiriva HandiHaler 1 Capsule (of 18 mcg) Inhalation daily, Symbicort 1 Puff(s) (of 160-4.5 mcg/act) Aerosol Inhalation b.i.d., Ventolin HFA 1 Puff(s) (of 108 (90 base) mcg/act) Aerosol, solution Inhalation four times a day Allergies: No Known Allergies. Review of Systems: Constitutional - He is very weak generally and he has very limited activity. He is on tube feeding for nutritional support. He seems to tolerate that well. He recently has had fever. He does not complain of night sweating. ECOG score is 3, ENMT - He has a little sinus drainage. He has sore mouth and throat. He is not able to tolerate anything orally, Hematologic/Lymphatic - He has easy bruising, Respiratory - He has shortness of breath and he has episodes of coughing. No pleuritic pain or hemoptysis, Cardiovascular - No angina pain. No palpitations, Gastrointestinal - No nausea or vomiting. No heartburn or acid reflux. No diarrhea or constipation. No blood in the stool or black stools, Genitourinary (M) - No dysuria or hematuria. No urinary frequency. No urgency or incontinence, Musculoskeletal - He has pain in his neck and in his throat, Integumentary - No skin rash, Neurologic - He has had some headache. He has orthostatic lightheadedness. No numbness or tingling. No other focal neurologic symptoms, Psychiatric - He has anxiety/depression. He has difficulty sleeping. Vital Signs: Performed on Aug 24, 2020 08:41 Height - 72.00 in Temperature - 99.2 F (HIGH) Pulse - 88 /min Respiration - 16 /min BP - 95/51 mm(hg) O2 Sat - 92 % (LOW) Pain - 3 Physical Examination: Constitutional - He appears generally weak and chronically ill, Eyes - Sclerae nonicteric. Conjunctivae clear, ENMT - No mucosal lesions noted in the oral cavity, Neck - Neck is soft but tender, Hematologic/Lymphatic - No cervical, clavicular, or axillary adenopathy, Respiratory - Lungs show diminished air movement bilaterally. There are coarse rhonchi anteriorly, Cardiovascular - Heart rhythm is regular. There is no murmur, gallop, or rub noted, Abdomen - Soft. The PEG tube site looks good. Liver and spleen are not enlarged. There is no abdominal mass or ascites noted and there is no inguinal adenopathy, Extremities - No edema, Integumentary - No rashes. No suspicious skin lesions noted, Neurologic - No focal neurologic deficits noted. Lab/Imaging: CBC shows hemoglobin 8.6 g, white blood cell count 4400, and platelet count 311,000. Comprehensive metabolic profile is unremarkable except for slightly low albumin at 3.3 g/dL. Impression: 1. 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 2. He has difficulty swallowing and he has associated weight loss and declining performance status. 3. He continues to smoke, and he has significant ongoing alcohol use. His other medical illnesses include: 4. Hypertension. 5. COPD. 6. Degenerative arthritis and presumably rheumatoid arthritis. 7. Benign prostatic hypertrophy. In the setting of locally advanced squamous cell carcinoma of the oropharynx, he was recommended to undergo radiation concurrently with standard high-dose cisplatin chemotherapy. His clinical course, though, was complicated by airway obstruction and impending respiratory failure, requiring hospitalization for tracheotomy. He also underwent placement of Port-A-Cath venous access device and PEG tube. He was then able to begin his chemoradiation as of 07/13/2020. He tolerated it with acceptable toxicity, though he did have a prolonged hospitalization. He then received cycle 2 of cisplatin on 08/03/2020. He has since then continued to have very marginal performance status. He has had recent episodes of fever associated with shortness of breath, cough, and hypoxia. This is presumed to be due to mucus buildup and aspiration. He is showing improvement clinically on antibiotic therapy, but he does have an oxygen requirement now and he continues to have marginal performance status. Plan: In view of his poor performance status and recent illness, his cycle 3 of cisplatin will be deferred at least until next week. As a precaution, I will check a chest x-ray today, and he will be given IV hydration today. I will request home oxygen for him, as he has had documented hypoxia and he is still at risk for further aspiration. I will recheck laboratory studies next week and determine then whether to proceed with his final cycle of cisplatin or just omitted entirely. Signed By: Stan Krishnamurthy M.D. <<Signature on File>>
--- NOTE | 2020-08-24 10:07 | XR_ITS ---
WS: [id number] XR chest 2V* [id number] REASON FOR EXAM: FEVER AND HYPOXIA FINDINGS: Compared to previous examination of 08/01/2020, the patient has developed interstitial and alveolar i nfiltrative changes in the left lower lung and lingular segment of the left lung. Similar changes are seen medially in the right upper lung. No other interval changes identified. XR/XR chest 2V* [id number] IMPRESSION: Interval development of infiltrates as above. Findings could represent subacute pneumonitis.
[2020-08-28] MEDS: sodium chloride 0.9% 250 ML 75 ML IV (10:40)
[2020-08-28 10:57] LABS: Basophils % 0.1 %; Eosinophils % 0.1 %; Hemoglobin 8.4 g/dL (11.7-16.6); Lymphocytes # 0.4 10^3/uL (0.8-4.8); Lymphocytes % 4.9 %; Mean Corpuscular HGB Conc 31.1 g/dL (30.0-36.0); Mean Corpuscular Hemoglobin 32.3 pg (28.0-34.0); Mean Corpuscular Volume 103.8 fL (80-94); Mean Platelet Volume 10.5 fL (7.4-10.4); Monocytes # 0.8 10^3/uL (0.2-0.9); Monocytes % 9.8 %; Neutrophils # 6.72 10^3/uL (1.8-7.7); Neutrophils % 84.5 %; Nucleated Red Blood Cells % 0 %; Platelet Count 349 10^3/cmm (130-400); Red Cell Distribution Width 14.6 % (12.1-15.1)
[2020-08-28 11:15] LABS: Alanine Aminotransferase 74 U/L (0-41); Albumin Level 2.9 g/dL (3.5-5.2); Alkaline Phosphatase 109 IU/L (40-130); Anion Gap 10.8 (5-19); Aspartate Amino Transferase 34 U/L (0-40); Blood Urea Nitrogen 16 mg/dL (8-23); Calcium 8.8 mg/dL (8.5-10.5); Carbon Dioxide 34 mmol/L (22-29); Chloride 95 mmol/L (98-107); Globulin 3.3 g/dL (1.3-4.6); Glucose 102 mg/dL (65-115); Osmolality Calculated 281 mOsm/kg (285-295); Potassium 4.8 mmol/L (3.5-5.1); Sodium 135 mmol/L (136-145); Total Bilirubin 0.3 mg/dL (0.15-1.2); Total Protein 6.2 g/dL (6.6-8.7)
[2020-08-28] MEDS: FUROsemide 10 mg/mL SDV 2mL 20 MG IV (15:10)
[2020-08-28] MEDS: sodium chlor 0.9% + KCl 20 mEq 20 MEQ/1,000 ML BAG 500 MEQ IV (15:12)
--- NOTE | 2020-08-31 11:49 | ONCRAD TMN_ITS ---
Radiation Oncology Weekly Treatment Management Patient: Deann Orosco MR#: [id number] : 1950> Attending Physician: Dr. Bertrand Davis Date of Service: 08/31/2020 Referring Physician(s): Dr. Pablito Cesar Diagnosis: C10.8 - Malignant neoplasm of overlapping sites of oropharynx, Diagnosed 07/03/2020 (Active) Stage X, T4b, N1, M0, p16+ Treatment Site: Head and neck Fraction number: 33 / 35 Total Dose: 66 Gy Start Date: 07/13/2020 Start Date: 07/18/2020 End Date: 08/31/2020 Elapsed Days: 44 Reason for visit: The patient is being seen today as part of their regularly scheduled weekly on treatment visits to assess for acute toxicities from radiotherapy. Review of Systems: He does not report any complaints. Physical Exam: The skin within the treatment miles demonstrated desquamation. Imaging: Radiation therapy imaging related to accurate target localization (i.e. KV, MV and CBCT) was reviewed. Appropriate changes, if any, were made to ensure treatment accuracy. Plan: Continue head neck radiotherapy as prescribed. Signed by: Dr. Bertrand Davis 08/31/2020 11:48:47 AM
[2020-09-06] VITALS (10 sets, daily range): BP systolic 108–128; BP diastolic 62–75; PULSE 78–98; RESP 18; TEMP 36.5–37.3; O2SAT 96–100
[2020-09-06 10:47] LABS: Basophils % 0.2 %; Eosinophils % 0.2 %; Hematocrit 21.1 % (42.0-52.0); Lymphocytes # 0.4 10^3/uL (0.8-4.8); Lymphocytes % 6.7 %; Mean Corpuscular HGB Conc 30.3 g/dL (30.0-36.0); Mean Corpuscular Hemoglobin 32.2 pg (28.0-34.0); Mean Platelet Volume 11.4 fL (7.4-10.4); Monocytes # 0.5 10^3/uL (0.2-0.9); Monocytes % 8.3 %; Neutrophils % 84.3 %; Nucleated Red Blood Cells % 0 %; Platelet Count 165 10^3/cmm (130-400); Red Blood Count 1.99 10^6/uL (4.1-5.3); Red Cell Distribution Width 14.8 % (12.1-15.1); White Blood Count 6.3 10^3/uL (4.0-10.0)
[2020-09-06 10:50] LABS: Hemoglobin 6.4 g/dL (11.7-16.6)
[2020-09-06 11:03] LABS: Alanine Aminotransferase 16 U/L (0-41); Albumin Level 2.7 g/dL (3.5-5.2); Alkaline Phosphatase 95 IU/L (40-130); Aspartate Amino Transferase 9 U/L (0-40); Blood Urea Nitrogen 24 mg/dL (8-23); Calcium 8.7 mg/dL (8.5-10.5); Carbon Dioxide 33 mmol/L (22-29); Chloride 102 mmol/L (98-107); Globulin 2.9 g/dL (1.3-4.6); Glucose 83 mg/dL (65-115); Osmolality Calculated 295 mOsm/kg (285-295); Sodium 141 mmol/L (136-145); Total Bilirubin 0.2 mg/dL (0.15-1.2); Total Protein 5.6 g/dL (6.6-8.7)
[2020-09-06] MEDS: acetaminophen 650 mg/20.3 mL UDC PO (12:55)
[2020-09-06] MEDS: diphenhydrAMINE 50 mg/mL SDV 1mL 25 MG IV (12:56)
[2020-09-06] MEDS: sodium chloride 0.9% 250 ML 999 ML IV (12:59)
[2020-09-06] MEDS: FUROsemide 10 mg/mL SDV 2mL 20 MG IV (14:42)
--- NOTE | 2020-09-12 13:44 | ONC FU_ITS ---
[facility] Patient Note Patient: Stan Zacarias Unit #: [id number]: 1950 Dictated By: Denise NiDate of Visit: Sep 06, 2020 Onc MED Follow-Up/Prog Note Chief Complaint: Squamous cell carcinoma of the oropharynx. 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 He presented with a 4-month history of oral/pharyngeal pain and difficulty swallowing. He was seen by Dr. Steve on 05/29/2020 and he was noted on exam to have a mass in the right oropharynx which was noted to extend inferiorly. His neck CT showed a large enhancing soft tissue mass centered in the right neck beginning at the right tongue base and palate teen tonsil and extending inferiorly along the pharyngeal mucosa to the level of the vocal cords. The mass was noted to extend over a distance of at least 8 cm with a maximum diameter of 3.2 cm. The mass was noted to involve the epiglottis and the right vallecula and piriform sinus. Below the hyoid cartilage it appeared to extend to the left of the midline posteriorly. The parapharyngeal fat was noted to be effaced and intubated with the soft tissue. The mass was noted to extend posteriorly to abut the prevertebral muscles. Small cervical chain lymph nodes were noted, the largest at level 2 measuring 7 mm. On 05/31/2020 he underwent laryngoscopy/esophagoscopy with biopsy of the right oropharyngeal mass. The mass was noted to have its focus on the right tonsil with extension up into the nasopharynx behind the right soft palate and down into the right lateral oropharynx and into the upper far portion of the piriform sinus. It also was noted to extend diffusely across the posterior oropharynx to at least the midline and possibly a little past the midline. It appeared to involve the area epiglottic fold on the right but the true vocal cords appeared to be normal. He also was noted to have mild esophagitis. The right and left trachea and right and left mainstem bronchi appeared normal. Pathology showed moderately differentiated squamous cell carcinoma. The P16 stain was strongly and diffusely positive. Staging PET/CT on 06/19/2020 showed a large FDG avid right oropharyngeal mass extending from the level of the nasopharynx to the supraglottic larynx measuring 3.6 x 4.7 cm, SUV 17.7. A 9 mm right level 2A lymph node was FDG positive with SUV 3.6 consistent with local metastatic disease. There was no evidence for any other metastatic involvement. His initial clinical course was complicated by threatened airway and impending respiratory failure, requiring hospital admission on 07/11/2020. He underwent direct laryngoscopy which confirmed presence of tumor extending into the right piriform sinus and distorting the airway, requiring tracheotomy. He also underwent placement of Port-A-Cath venous access device and placement of PEG tube for enteral feeding. He then began radiation concurrently with standard high-dose cisplatin chemotherapy on 07/13/2020. He had a relatively prolonged hospital course, but he was able to be discharged home on 07/31/2020. He continued his radiation, and he received cycle 2 of cisplatin on 08/03/2020. He had had poor performance status with the cisplatin. His last dose was on 08/28/2020. He has had decline in performance status as well as his blood counts. His hemoglobin on 08 28 was 8.4. His hemoglobin today is 6.4. He states he is short of breath and washed out. He denies nausea or vomiting. He denies hearing changes or neuropathy. His ECOG is 2. Past Medical History: Anxiety Benign prostatic hyypertrophy Chronic obstructive pulmonary disease Degenerative arthritis Hypertension Rheumatoid arthritis Past Surgical History: Skin cancer excision TURP PEG Tube-Dr Vang in 2019 Right Power Port-Dr Vang in 2019 Tracheotomy-Dr Cesar in 2019 Laryngoscopy/esophogoscopy in 2019 Allergies: No Known Allergies. Medications: amLODIPine Besylate 1 Tablet (of 5 mg) Tablet Oral daily Azithromycin 7.5 mL (of 200 mg/5mL) Suspension, when reconstituted Oral daily for 4 days Finasteride 1 Tablet (of 5 mg) Oral daily Flomax 1 Capsule (of 0.4 mg) Oral daily Meloxicam 1 Tablet (of 15 mg) Oral daily Methotrexate 1 Tablet (of 2.5 mg) Oral q 7 days oxyCODONE-Acetaminophen 1 Tablet (of 5-325 mg) Oral q 6 hours Spiriva HandiHaler 1 Capsule (of 18 mcg) Inhalation daily Symbicort 1 Puff(s) (of 160-4.5 mcg/act) Aerosol Inhalation b.i.d. Ventolin HFA 1 Puff(s) (of 108 (90 base) mcg/act) Aerosol, solution Inhalation four times a day Family History: Mr. Zacarias's mother at age 82. Mr. Zacarias's father at age 82. Both parents are , cause unknown to the patient. He has two brothers and a sister, but he has no knowledge about the status of their health. Social History: Mr. Zacarias is . He is a heavy tobacco smoker who has smoked 1.0 pack/day for 56 years. He is an active drinker.He consumes 10 drinks/day 7 days/week. 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 He has a history of smoking cigarettes for 56 years, estimated in the range of 1 pack daily, though he rolls his own. He drinks 8-10 beers daily. Review Of Symptoms: Constitutional Denies fevers, chills, night sweats. Fatigue but stable Allergic/Immunologic No reactions. Eyes Denies significant visual changes. No diplopia. No amaurosis. ENMT Denies any new concerns other than mouth is sore from radiation. Hematologic/Lymphatic Denies easy bruising or bleeding. The patient denies any tender or palpable lymph nodes. Respiratory Denies worsening dyspnea on exertion. He denies chest pain, cough or hemoptysis. Denies orthopnea. Cardiovascular Denies anginal chest pain, palpitations or orthopnea. Gastrointestinal Denies nausea, vomiting, diarrhea, GI bleeding, or constipation. Denies change in bowel habits and/or stool color, no heartburn or early satiety. Genitourinary (M) Denies hematuria, dysuria, increased frequency, urgency, hesitancy or incontinence. Musculoskeletal Denies joint pain, swelling or redness. No decreased range of motion. Integumentary Denies chronic rashes, inflammation, ulcerations or skin changes. Neurologic Denies headache, blurred vision, and no areas of focal weakness or numbness. Requires walker for ambulation assistance. No sensory problems. Psychiatric Denies insomnia, depression, sunil or mood swings. Vital Signs: ,2 - Ambulatory/capable of all self-care, unable to perform any work activities. Up and about more than 50% of waking hours. (ECOG) Physical Examination: Constitutional Alert, oriented, no acute distress. Skin pink, warm and dry. Head Normocephalic; atraumatic. Eyes Conjunctivae and sclerae are clear and without icterus. Pupils are reactive and equal. ENMT . Trach site is clean and unremarkable today. Hematologic/Lymphatic No petechiae or purpura. No tender or palpable lymph nodes in the cervical or supraclavicular areas. Respiratory Lungs are clear to auscultation without rhonchi or wheezing. Cardiovascular Regular rate and rhythm of heart without murmurs,clicks, gallops or rubs. Chest Chest is symmetric without chest wall deformities. Right PowerPort site is unremarkable- it has healed well. Abdomen Non-tender, non-distended, no masses or ascites. Back/Spine Non-tender to palpation. Extremities No visible deformities, no cyanosis, clubbing or edema. Musculoskeletal No tenderness or swelling, normal range of motion without obvious weakness. Integumentary No rashes or lesions. Neurologic No sensory or motor deficits, normal cerebellar function, gait not assessed. Psychiatric Alert and oriented times three. Coherent speech. Verbalizes understanding of our discussions today. Laboratory:Test performed on Sep 06, 2020 11:21 ABO & Rh Type # 2 AP Test performed on Sep 06, 2020 10:30 Sodium 141 mmol/L Potassium 4.0 mmol/L Chloride 102 mmol/L CO2 33 mmol/L Anion Gap 10.0 BUN 24 mg/dL Creatinine 0.7 mg/dL Cr Clearance (Est) 103.6700 mL/min Glucose 83 mg/dL Osmolality - Calculated 295 mOsm/kg Calcium 8.7 mg/dL Protein, Total 5.6 g/dL Albumin 2.7 g/dL Globulin 2.9 g/dL Bilirubin, Total 0.2 mg/dL ALT (SGPT) 16 U/L AST (SGOT) 9 U/L Alkaline Phosphatase 95 IU/L WBC 6.3 10 3/uL RBC 1.99 10 6/uL HGB 6.4 g/dL HCT 21.1 % MCV 106.0 fL MCH 32.2 pg MCHC 30.3 g/dL RDW 14.8 % Platelet Count 165 10 3/cmm MPV 11.4 fL Neutrophils 5.30 10 3/uL Lymphocytes 0.4 10 3/uL Monocytes 0.5 10 3/uL Eosinophils 0.0 10 3/uL Basophils 0.0 10 3/uL Neutrophil % 84.3 % Lymphocyte % 6.7 % Monocyte % 8.3 % Eosinophil % 0.2 % Basophils % 0.2 % NRBC % 0 % Anti-D Positive Blood Type AP Antibody Screen (Gel) NEGATIVE Impression: 1. 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 2. He has difficulty swallowing and he has associated weight loss and declining performance status. 3. He continues to smoke, and he has significant ongoing alcohol use. His other medical illnesses include: 4. Hypertension. 5. COPD. 6. Degenerative arthritis and presumably rheumatoid arthritis. 7. Benign prostatic hypertrophy. In the setting of locally advanced squamous cell carcinoma of the oropharynx, he was recommended to undergo radiation concurrently with standard high-dose cisplatin chemotherapy. His clinical course, though, was complicated by airway obstruction and impending respiratory failure, requiring hospitalization for tracheotomy. He also underwent placement of Port-A-Cath venous access device and PEG tube. He was then able to begin his chemoradiation as of 07/13/2020. He tolerated it with acceptable toxicity, though he did have a prolonged hospitalization. He then received cycle 2 of cisplatin on 08/03/2020. He has since then continued to have very marginal performance status. He has had recent episodes of fever associated with shortness of breath, cough, and hypoxia. This is presumed to be due to mucus buildup and aspiration. He is showing improvement clinically on antibiotic therapy, but he does have an oxygen requirement now and he continues to have marginal performance status. In view of his poor performance status and recent illness, his cycle 3 of cisplatin will be deferred at least until next week. He completed cycle 3 Cisplatin on 08/28/2020. Plan: 1. We will administer 2 units of packed red blood cells for hemoglobin of 6.4. 2. Today's labs reviewed in detail discussed with Mr. Zacarias and a copy was given to him. WBC 6.3, hemoglobin 6.4, platelet count 165,000 sodium 141 potassium 4.0 creatinine 0.7 LFTs are normal. 3. We will give him supportive care as needed as he recovers post treatment. 4. We will plan to continue weekly blood counts (CBC, CMP and Typenex) which may be done via in-home labs. 5. We will plan to do a follow-up visit with him here in the office with Dr. Krishnamurthy in 1 month with CBC CMP. 6. Mr. Zacarias was encouraged to has family call us in interim if any questions or problems arise. Signed By: Denise Ni-, [facility] Stan Krishnamurthy MD <<Signature on File>>
== END 2020-09-18 23:59 | disposition home or self-care (01) ==
LOC: ONCMED 05:30
PROVIDERS: Internal Medicine Medical Oncology; Absent Provider Radiology Radiation Oncology; PCP Nurse Practitioner Family; Visit Provider Nurse Practitioner
DX: Z51.0 Encounter for antineoplastic radiation therapy (principal); Z51.11 Encounter for antineoplastic chemotherapy; C10.8 Malignant neoplasm of overlapping sites of oropharynx; R13.12 Dysphagia, oropharyngeal phase; R63.4 Abnormal weight loss; F17.210 Nicotine dependence, cigarettes, uncomplicated; F10.20 Alcohol dependence, uncomplicated; I10 Essential (primary) hypertension; J44.9 Chronic obstructive pulmonary disease, unspecified; M06.9 Rheumatoid arthritis, unspecified; N40.0 Benign prostatic hyperplasia without lower urinary tract symptoms; Z79.899 Other long term (current) drug therapy
CPT/HCPCS: 36430; 36591; 71046; 77336; 77386; 80053; 85025; 86850; 86900; 86920; 96360; 96366; 96367; 96375; 96413; 99214; J1100; J1200; J1453; J1940; J2469; J3475; J3480; J7030; J7040; J7050; J9060; P9016

== ENCOUNTER 2020-09-19 09:48 | Outpatient (CLI) | payer MEDICARE, MEDICAID, SELFPAY ==
--- NOTE | 2020-09-19 09:56 | FL_ITS ---
WS: [id number] MODIFIED BARIUM SWALLOW TECHNIQUE: Modified barium swallow with speech therapy using multiple consistencies. FLUOROSCOPY TIME: 1.8 minutes. CLINICAL INFORMATION: Other dysphagia COMPARISON: None. FINDINGS: Thin liquid was utilized. Pooling in the vallecula. Active aspiration is visualized extending below t he level of the true cords. FL/FL barium swallow modifd [id number] IMPRESSION: Active aspiration is visualized extending below the level of the true cords. Pl ease see speech therapy evaluation for further detail
== END 2020-09-19 09:49 | disposition home or self-care (01) ==
PROVIDERS: PCP Nurse Practitioner Family; Visit Provider Specialist
DX: C10.8 Malignant neoplasm of overlapping sites of oropharynx (principal); R13.19 Other dysphagia
CPT/HCPCS: 74230; 92611

== ENCOUNTER 2020-09-25 10:47 | Outpatient (CLI) | payer MEDICARE, MEDICAID, SELFPAY ==
--- NOTE | 2020-09-25 | CT_ITS ---
WS: [id number] CT NECK TECHNIQUE: Contrast-enhanced CT of the neck with coronal and sagittal reformatted images. CLINICAL INFORMATION: MALIGNANT NEOPLASM OF OVERLAPPING SITES OF OROPHARYNX COMPARISON: None. DLP: 2037.[address] scans at [facility] use at least one of these dose optimization techniques: automat ed exposure control; mA and/or kV adjustment per patient size (includes targeted exams where dose is matched to clinical indication); or iterative reconstruction. FINDINGS: Spiculated mass in the right upper lobe about the right supra hilum and azygos fissure measuring 2.8 x 3.0 x 3.7 cm is new since the prior PET/CT and neck CT suspicious for neoplasm or metastatic diseas e. This can be further evaluated with dedicated chest CT and bronchoscopy. Left mastoid air cells are well aerated. Partial opacification of the right mastoid air cells. Parana zane sinuses are well aerated. Tracheostomy. Previously described right tongue base mass has significa ntly improved compared to the prior examinations. No significant residual enhancing soft tissue compo nent. Mild asymmetry involving the right pharyngeal wall and hypopharynx due to treatment-related yobani nges. Normal epiglottis. Normal vocal cords. Subglottic airway is patent. No cervical lymphadenopathy today. Dense carotid bulb calcification. Moderate spondylitic changes cervical spine. CT/CT neck w con* [id number] IMPRESSION: 1. Spiculated mass in the right upper lobe suspicious for metastatic disease o r neoplasm. Recommend further evaluation with dedicated chest CT and bronchosco py. 2. Previously described right tongue base mass has essentially resolved with t reatment-related changes involving the pharynx and hypopharynx. No significant residual disease. No progressed disease. 3. No cervical lymphadenopathy. 4. Dense carotid bulb calcification. 5. Partial opacification right mastoid air cells.
[2020-09-25] MEDS: iohexol 300 mg/mL 100 mL Btl IV (11:48)
== END 2020-09-25 10:48 | disposition home or self-care (01) ==
LOC: RADWPI 10:50
PROVIDERS: PCP Nurse Practitioner Family; Visit Provider Specialist
DX: C10.8 Malignant neoplasm of overlapping sites of oropharynx (principal); H66.003 Acute suppurative otitis media without spontaneous rupture of ear drum, bilateral; Z93.0 Tracheostomy status; I65.29 Occlusion and stenosis of unspecified carotid artery; K14.9 Disease of tongue, unspecified
CPT/HCPCS: 70491; Q9967

== ENCOUNTER 2020-10-06 05:38 | Outpatient (RCR) | payer MEDICARE, MEDICAID, SELFPAY ==
[2020-10-02] MEDS: pneumococcal (23 valent) SDV 0.5 mL IM (09:28)
[2020-10-02 09:52] LABS: Basophils % 0.4 %; Eosinophils # 0.1 10^3/uL (0.0-0.8); Eosinophils % 0.9 %; Hematocrit 26.5 % (42.0-52.0); Lymphocytes # 0.7 10^3/uL (0.8-4.8); Lymphocytes % 12.1 %; Mean Corpuscular HGB Conc 30.2 g/dL (30.0-36.0); Mean Corpuscular Hemoglobin 30.8 pg (28.0-34.0); Mean Corpuscular Volume 101.9 fL (80-94); Mean Platelet Volume 10.6 fL (7.4-10.4); Monocytes # 0.8 10^3/uL (0.2-0.9); Monocytes % 15.6 %; Neutrophils # 3.79 10^3/uL (1.8-7.7); Neutrophils % 70.6 %; Nucleated Red Blood Cells % 0 %; Platelet Count 229 10^3/cmm (130-400); Red Cell Distribution Width 17.9 % (12.1-15.1); White Blood Count 5.4 10^3/uL (4.0-10.0)
[2020-10-02 10:12] LABS: Alanine Aminotransferase 13 U/L (0-41); Albumin Level 3.4 g/dL (3.5-5.2); Alkaline Phosphatase 80 IU/L (40-130); Anion Gap 11.5 (5-19); Aspartate Amino Transferase 12 U/L (0-40); Blood Urea Nitrogen 15 mg/dL (8-23); Carbon Dioxide 31 mmol/L (22-29); Chloride 98 mmol/L (98-107); Globulin 2.9 g/dL (1.3-4.6); Glucose 64 mg/dL (65-115); Osmolality Calculated 281 mOsm/kg (285-295); Potassium 4.5 mmol/L (3.5-5.1); Sodium 136 mmol/L (136-145); Total Bilirubin 0.2 mg/dL (0.15-1.2); Total Protein 6.3 g/dL (6.6-8.7)
--- NOTE | 2020-10-02 18:48 | ONC FU_ITS ---
Dr. Krishnamurthy Patient Follow-Up Note Patient: Stan Zacarias Unit #: [id number]: 1950 Dicatated By: Stan Krishnamurthy M.D.Date of Visit:Oct 02, 2020 Onc Med Follow-up/Prog Note Chief Complaint: Squamous cell carcinoma of the oropharynx. 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 He presented with a 4-month history of oral/pharyngeal pain and difficulty swallowing. He was seen by Dr. Steve on 05/29/2020 and he was noted on exam to have a mass in the right oropharynx which was noted to extend inferiorly. His neck CT showed a large enhancing soft tissue mass centered in the right neck beginning at the right tongue base and palate teen tonsil and extending inferiorly along the pharyngeal mucosa to the level of the vocal cords. The mass was noted to extend over a distance of at least 8 cm with a maximum diameter of 3.2 cm. The mass was noted to involve the epiglottis and the right vallecula and piriform sinus. Below the hyoid cartilage it appeared to extend to the left of the midline posteriorly. The parapharyngeal fat was noted to be effaced and intubated with the soft tissue. The mass was noted to extend posteriorly to abut the prevertebral muscles. Small cervical chain lymph nodes were noted, the largest at level 2 measuring 7 mm. On 05/31/2020 he underwent laryngoscopy/esophagoscopy with biopsy of the right oropharyngeal mass. The mass was noted to have its focus on the right tonsil with extension up into the nasopharynx behind the right soft palate and down into the right lateral oropharynx and into the upper far portion of the piriform sinus. It also was noted to extend diffusely across the posterior oropharynx to at least the midline and possibly a little past the midline. It appeared to involve the area epiglottic fold on the right but the true vocal cords appeared to be normal. He also was noted to have mild esophagitis. The right and left trachea and right and left mainstem bronchi appeared normal. Pathology showed moderately differentiated squamous cell carcinoma. The P16 stain was strongly and diffusely positive. Staging PET/CT on 06/19/2020 showed a large FDG avid right oropharyngeal mass extending from the level of the nasopharynx to the supraglottic larynx measuring 3.6 x 4.7 cm, SUV 17.7. A 9 mm right level 2A lymph node was FDG positive with SUV 3.6 consistent with local metastatic disease. There was no evidence for any other metastatic involvement. His initial clinical course was complicated by threatened airway and impending respiratory failure, requiring hospital admission on 07/11/2020. He underwent direct laryngoscopy which confirmed presence of tumor extending into the right piriform sinus and distorting the airway, requiring tracheotomy. He also underwent placement of Port-A-Cath venous access device and placement of PEG tube for enteral feeding. He then began radiation concurrently with standard high-dose cisplatin chemotherapy on 07/13/2020. He had a relatively prolonged hospital course, but he was able to be discharged home on 07/31/2020. He continued his radiation, and he received cycle 2 of cisplatin on 08/03/2020 and cycle 3 on 08/28/2020. He completed radiation on 09/04/2020 to a total dose of 6600 cGy. He is seen for a follow-up visit. He has been feeling very weak and his activity is very limited. ECOG score is 3. He has very minimal oral intake, and his recent barium swallow study did show aspiration. He is tolerating his tube feeding without difficulty. He does not have fever or night sweats. He has shortness of breath and he is on continuous oxygen. He has some cough associated with mucus in his throat. He does not complain of chest pain. He has had some constipation. He has no other GI or complaints. He has no significant joint or bone pain. He does not complain of headache. He does have some dizziness. He has no focal neurologic symptoms. Medications: amLODIPine Besylate 1 Tablet (of 5 mg) Tablet Oral daily, Azithromycin 7.5 mL (of 200 mg/5mL) Suspension, when reconstituted Oral daily for 4 days, Finasteride 1 Tablet (of 5 mg) Oral daily, Flomax 1 Capsule (of 0.4 mg) Oral daily, Meloxicam 1 Tablet (of 15 mg) Oral daily, Methotrexate 1 Tablet (of 2.5 mg) Oral q 7 days, oxyCODONE-Acetaminophen 1 Tablet (of 5-325 mg) Oral q 6 hours, Spiriva HandiHaler 1 Capsule (of 18 mcg) Inhalation daily, Symbicort 1 Puff(s) (of 160-4.5 mcg/act) Aerosol Inhalation b.i.d., Ventolin HFA 1 Puff(s) (of 108 (90 base) mcg/act) Aerosol, solution Inhalation four times a day Allergies: No Known Allergies. Review of Systems: Constitutional - He is generally weak and he has very limited activity. He has very little oral intake. He is tolerating his tube feeding with no difficulty. He does not have fever or night sweats. ECOG score is 3, ENMT - No sinus congestion/drainage. He still has some soreness in the mouth and throat and he has difficulty swallowing, Hematologic/Lymphatic - He has easy bruising, Respiratory - He has shortness of breath. He is on continuous oxygen. He does have some cough associated with mucus in his throat. No pleuritic pain or hemoptysis, Cardiovascular - No angina pain. No palpitations, Gastrointestinal - No nausea or vomiting. No heartburn or acid reflux. He is having some constipation. No blood in the stool or black stools, Genitourinary (M) - No dysuria or hematuria. No urinary frequency. No urgency or incontinence, Musculoskeletal - No significant joint or bone pain, Integumentary - No skin rash, but his skin is very dry, Neurologic - No headache. He has some dizziness. No numbness or tingling. No other focal neurologic symptoms, Psychiatric - He has a little depression. He does not sleep well. Vital Signs: Performed on Oct 02, 2020 08:39 Height - 72.00 in Temperature - 98.7 F Pulse - 73 /min Respiration - 16 /min BP - 104/64 mm(hg) O2 Sat - 97 % Pain - 1 Physical Examination: Constitutional - He appears generally weak, Eyes - Sclerae nonicteric. Conjunctivae clear, ENMT - No lesions noted in the oral cavity, Neck - There is tenderness in the neck, there is no mass palpable. The trach site appears unremarkable, Hematologic/Lymphatic - No cervical, clavicular, or axillary adenopathy noted, Respiratory - Lungs show some decrease in air movement and coarse rales bilaterally, Cardiovascular - Heart rhythm is regular. There is no murmur, gallop, or rub noted, Abdomen - Soft and non-tender. Liver and spleen are not enlarged. There is no abdominal mass or ascites noted and there is no inguinal adenopathy, Extremities - There is mild lower extremity edema, worse on the right, Integumentary - The skin is very dry and flaky in the neck and in the facial area, Neurologic - No focal neurologic deficits noted. Lab/Imaging: Test performed on Oct 02, 2020 09:30 Sodium 136 mmol/L Potassium 4.5 mmol/L Chloride 98 mmol/L CO2 31 mmol/L Anion Gap 11.5 BUN 15 mg/dL Creatinine 0.5 mg/dL Cr Clearance (Est) 145.1400 mL/min Glucose 64 mg/dL Osmolality - Calculated 281 mOsm/kg Calcium 9.0 mg/dL Protein, Total 6.3 g/dL Albumin 3.4 g/dL Globulin 2.9 g/dL Bilirubin, Total 0.2 mg/dL ALT (SGPT) 13 U/L AST (SGOT) 12 U/L Alkaline Phosphatase 80 IU/L WBC 5.4 10 3/uL RBC 2.60 10 6/uL HGB 8.0 g/dL HCT 26.5 % MCV 101.9 fL MCH 30.8 pg MCHC 30.2 g/dL RDW 17.9 % Platelet Count 229 10 3/cmm MPV 10.6 fL Neutrophils 3.79 10 3/uL Lymphocytes 0.7 10 3/uL Monocytes 0.8 10 3/uL Eosinophils 0.1 10 3/uL Basophils 0.0 10 3/uL Neutrophil % 70.6 % Lymphocyte % 12.1 % Monocyte % 15.6 % Eosinophil % 0.9 % Basophils % 0.4 % NRBC % 0 % Impression: 1. 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 2. He has difficulty swallowing and he has associated weight loss and declining performance status. 3. He continues to smoke, and he has significant ongoing alcohol use. His other medical illnesses include: 4. Hypertension. 5. COPD. 6. Degenerative arthritis and presumably rheumatoid arthritis. 7. Benign prostatic hypertrophy. In the setting of locally advanced squamous cell carcinoma of the oropharynx, he was recommended to undergo radiation concurrently with standard high-dose cisplatin chemotherapy. His clinical course, though, was complicated by airway obstruction and impending respiratory failure, requiring hospitalization for tracheotomy. He also underwent placement of Port-A-Cath venous access device and PEG tube. He was then able to begin his chemoradiation as of 07/13/2020. He tolerated it with acceptable toxicity, though he did have a prolonged hospitalization. He then received cycle 2 of cisplatin on 08/03/2020. During subsequent follow-up he did require antibiotic therapy for pneumonia, presumed to be due to aspiration. He was able to continue his radiation. He also was able to continue with cycle 3 of cisplatin chemotherapy on 08/28/2020. He completed radiation on 09/04/2020 to a total dose of 6600 cGy. At this point he continues to have very marginal performance status. He is significantly anemic. He does appear to have a good response to the radiation on his follow-up neck CT. However, there is evidence of a new right upper lobe lung mass measuring 2.8 x 3.0 x 3.7 cm, which could either be a metastatic lesion or new primary lung malignancy. Plan: I will request additional laboratory studies for evaluation of the anemia. He will be scheduled for staging PET/CT, and will have further evaluation for the lung mass as indicated. Signed By: Stan Krishnamurthy M.D. <<Signature on File>>
== END 2020-10-19 23:59 | disposition home or self-care (01) ==
LOC: ONCMED 05:38
PROVIDERS: Internal Medicine Medical Oncology; Absent Provider Radiology Radiation Oncology; PCP Nurse Practitioner Family; Visit Provider Radiology Radiation Oncology
DX: C10.8 Malignant neoplasm of overlapping sites of oropharynx (principal); R13.12 Dysphagia, oropharyngeal phase; F17.210 Nicotine dependence, cigarettes, uncomplicated; F10.20 Alcohol dependence, uncomplicated; I10 Essential (primary) hypertension; J44.9 Chronic obstructive pulmonary disease, unspecified; M06.9 Rheumatoid arthritis, unspecified; N40.0 Benign prostatic hyperplasia without lower urinary tract symptoms; Z23 Encounter for immunization; Z79.899 Other long term (current) drug therapy
CPT/HCPCS: 36591; 80053; 85025; 90471; 90686; 90732; 99214

== ENCOUNTER → 2020-10-16 14:22 | Outpatient (BNVA) | payer MEDICARE, MEDICAID, SELFPAY | PROVIDERS: PCP Nurse Practitioner Family; Visit Provider Internal Medicine Critical Care Medicine | DX: Z20.828 Contact with and (suspected) exposure to other viral communicable diseases (principal) | CPT/HCPCS: 87635 ==

== ENCOUNTER 2020-10-26 05:39 | Day surgery (SDC) | payer MEDICARE, MEDICAID, SELFPAY ==
[2020-10-25 14:19] VITALS: BMI 19.8
[2020-10-26] VITALS (11 sets, daily range): BP systolic 111–149; BP diastolic 74–89; PULSE 75–92; RESP 8–22; TEMP 36.3–36.4; O2SAT 93–100
--- NOTE | 2020-10-26 | CT_ITS ---
Guided Bronchoscopy Planning CT images; total exam DLP: 604.91 mGy-cm MTDD
[2020-10-26] MEDS: sodium chloride 0.9% 1,000 ML 30 ML IV (06:19)
--- NOTE | 2020-10-26 06:24 | ANES.PREANE2 ---
Pre-Anesthetic Assessment Pre-Anesthetic Assessment: Height/Weight: Height 1.85 m Weight 68.039 kg Temp Pulse Resp BP Pulse Ox 97.5 F L 75 18 129/82 100 10/26/20 06:00 10/26/20 06:00 10/26/20 06:00 10/26/20 06:00 10/26/20 06:00 Preop Diagnosis: Oropharyngeal cancer with threatened airway Proposed Procedure: Operation Date: 10/26/20 07:10 Proposed Procedures p Veran(Not Applicable) - Brittani Bosch MD Familial anesthetic complications: None Was Beta Lexx taken within 24 hours: N/A Last intake: Intake Last Liquid Date 10/25/20 Last Liquid Time 23:00 Last Solid Date 10/25/20 Last Solid Time 23:00 Social: Social History: Alcohol and Tobacco Exam: Pre-Anes Outpt Exam: alert, oriented x 3, clear to auscultation bilaterally and regular rate & rhythm Additional Exam Findings (including area of procedure): coarse breath sounds being transferred to lung miles from tracheostomy/neck Airway: Cervical ROM: WNL MP: 3 Dentition: Full Additional comments: Tracheostomy - will need cuffed trach, having lots of mucus at trach site but he says this is normal for him per previous notes Metastatic oropharyngeal cancer Pulmonary: Pulmonary: COPD CV/HEM: CV/HEM: HTN Musc/skel: Musc/skel: RA Anesthetic Plan: ASA status: 4 Anesthesia: General Risk of > 500 ml blood loss (7ml/kg in children): No Meds/Allergies Current Medications: Current Medications Generic Name Dose Route Start Last Admin Trade Name Freq PRN Reason Stop Dose Admin Sodium Chloride 1,000 mls @ 30 ml s/hr 10/26/20 06:00 10/26/20 06:19 Sodium Chloride 0.9% IV 10/27/20 05:59 30 mls/hr .Q24H NOEL Administration PFSH Anesthesia PFSH: Medical History (Updated 10/23/20 @ 09:26 by Brittani Bosch MD) Anxiety BPH (benign prostatic hyperplasia) COPD (chronic obstructive pulmonary disease) Hypertension Rheumatoid arthritis Squamous cell carcinoma of oropharynx Surgical History H/O transurethral resection of prostate History of biopsy 05/31/2020 laryngoscopy with biopsy of right oropharyngeal mass History of local excision of skin lesion Family History Mother , Unknown health problems No problems noted. Father , Unknown health problems No problems noted. Denies family history of Diabetes CAD (coronary artery disease) Anesthesia complication Bleeding disorder Cancer Social History Smoking and tobacco status: current every day smoker Alcohol intake: current Alcohol intake frequency: 3 or more drinks per day Alcohol type: beer Lives independently: Yes Household members: family Marital status: Single Current occupational status: retired History of recent travel: No Data Anesthesia Cardiac Studies: No Data to Display
--- NOTE | 2020-10-26 07:00 | W.PM.OPSUD ---
Surgery/Procedure H&P Update DATE OF PROCEDURE: October 26, 2020 DATE H&P PERFORMED: 10/23/20 H&P UPDATE INFORMATION: I have reviewed H&P completed within last 30 days, I have examined patient prior to procedure and No changes to prior documentation PREOP DIAGNOSIS: Oropharyngeal cancer with possible metastatic disease to the lung PLANNED PROCEDURE: Bronchoscopy with inspection of the airway, possible endobronchial biopsies, navigational bronchoscopy guided transbronchial biopsies, fine-needle aspiration and Cytobrush of right upper lobe and left lower lobe lesion. Operation Date: 10/26/20 07:10 Proposed Procedures salma Barcenas(Not Applicable) - Brittani Bosch MD
[2020-10-26] MEDS: lidocaine 1% INJ 20 mL XX (07:20)
--- NOTE | 2020-10-26 07:58 | SUR.OPER ---
Veran disposable bronchoscope used for procedure.
--- NOTE | 2020-10-26 08:09 | P.OP_ITS ---
Operative Report Date of procedure: October 26, 2020 Pre-op Diagnosis: Oropharyngeal cancer with possible metastatic disease to the lung Post-op diagnosis: same Brief History: This is a 70-year-old gentleman with history of supraglottic squa mous cell cancer coming in for bronchoscopic evaluation of recently identified lung masses. 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 Local anesthesia: The savi in the right and left mainstem bronchi were anesthetized with 1% lidocaine, 3 mL. Description of the procedure: The procedure was explained to the patient and the consent was obtained. The patient was brought to the OR. The patient underwent general anesthesia through tracheostomy tube that was already in place. Following induction of general anesthesia, the bronchoscope was advanced through the tracheostomy tube. The lower trachea appeared to be erythematous, no endotracheal lesion was seen. The savi was sharp. The savi, the right and left mainstem bronchi are anesthetized with 1% lidocaine. In a systematic manner bilateral bronchial tree was then examined. The bronchoscope was advanced into the left mainstem bronchus. The left upper lobe, lingula and left lower lobe bronchi were examined up to the third subsegmental level and no abnormalities were identified. There is no endobronchial lesion, active bleeding or mucous plug. The bronchoscope was then introduced into the right mainstem bronchus. The right upper lobe, right middle lobe and right lower lobe bronchi were examined up to the third subsegmental level and no abnormalities were identified. There was diffuse airway erythema and mucus. Using navigational bronchoscopy system transbronchial biopsies were obtained from the right upper lobe lung mass. Samples: 1. The transbronchial biopsy sample was sent for histopathology and touch prep on the slide. Complications: There was no immediate complications. Chest x-ray: Pending
--- NOTE | 2020-10-26 08:14 | XR_ITS ---
WS: [id number] PORTABLE CHEST HISTORY: post bronchoscopy COMPARISON: 08/24/2020 Tracheostomy remains in good position. Port-A-Cath present with tip in the distal SVC. Lungs are hyperexpanded. Area of mild interstitial thickening measures 22 mm in the RIGHT upper lobe. No associated hemorrhage or pneumothorax. Linear area of scarring in the lingula with overall improv ed aeration since 08/24/2020. No pleural effusion or pneumothorax. Cardiac size: Normal. Mediastinum/Aorta: Mild atherosclerosis aorta. No osseous abnormality seen. XR/XR chest 1V portable [id number] IMPRESSION: 1. No pneumothorax or hemorrhage associated with the recent bronchoscopy. 2. Tracheostomy in good position. 3. RIGHT upper lobe and lingular opacifications are stable. 4. Marked chronic emphysema.
--- NOTE | 2020-10-26 19:32 | ANE.PACU2 ---
Inpatient post-anesthesia follow up: Airway intact: Yes Vital signs: Temperature 97.5 F Pulse Rate 78 Respiratory Rate 18 Blood Pressure 135/82 Pulse Oximetry 96 Oxygen Delivery Me thod Trach Collar Oxygen Flow Rate 3 Fraction of Inspir ed Oxygen Hydration adequate: Yes Nausea and vomiting: No Pain level: 2 Mental status: Baseline
== END 2020-10-26 09:46 | disposition home or self-care (01) ==
PROVIDERS: PCP Nurse Practitioner Family; Visit Provider Internal Medicine Critical Care Medicine
PROC: 0BJ08ZZ Inspection of Tracheobronchial Tree, Via Natural or Artificial Opening Endoscopic (ICD-10-PCS; CPT 31622; principal; 2020-10-26 07:00)
PROC: 0BJ08ZZ Inspection of Tracheobronchial Tree, Via Natural or Artificial Opening Endoscopic (ICD-10-PCS; CPT 31622; 2020-10-26 07:00)
DX: C10.9 Malignant neoplasm of oropharynx, unspecified (principal); C78.00 Secondary malignant neoplasm of unspecified lung; J44.9 Chronic obstructive pulmonary disease, unspecified; I10 Essential (primary) hypertension; M06.9 Rheumatoid arthritis, unspecified; N40.0 Benign prostatic hyperplasia without lower urinary tract symptoms
CPT/HCPCS: 12345; 31622; 31627; 31628; 71045; 77011; 80500; 88305; J7030; T1015-U1

== ENCOUNTER 2020-11-03 08:00 | Outpatient (CLI) | payer MEDICARE, MEDICAID, SELFPAY ==
--- NOTE | 2020-11-03 08:30 | CT_ITS ---
WS: [id number] CT NECK WITH CONTRAST HISTORY: MALIGNANT NEOPLASM OF OROPHARYNX TECHNIQUE: Contiguous 5 mm axial images are performed through the neck with intravenous contrast. Sag ittal and coronal reformats are also submitted. All CT scans at [facility] use at least o ne of these dose optimization techniques: automated exposure control; mA and/or kV adjustment per pat ient size (includes targeted exams where dose is matched to clinical indication); or iterative recons truction. CONTRAST: CONTRAST: Omnipaque 300; 95 mL IV. DLP: 1218.64 mGycm COMPARISON: 09/25/2020. Recent PET CT 10/07/2020. Patient is status post tracheostomy. No recurrence at the RIGHT tongue base. There is a new area of s oft tissue thickening and enhancement measuring 1.7 x 2.3 cm centered in the LEFT palatine tonsil and parapharyngeal space. This was not present on the prior study. There are adjacent changes of secreti ons within the oropharynx No new or increasing lymph nodes. Stranding and reticulations in the soft t issues of the neck from prior radiation. Thyroid gland and salivary glands are normally enhancing with no masses. Mild increase in the cervical lordosis. No fractures. Visualized portions of the skull base demonstrate no abnormalities. Orbits and globes are within norm al limits. No soft tissue masses. Visualized paranasal sinuses and mastoid air cells are normal. Spiculated mass in the RIGHT upper lobe again identified but significantly decreased in size now rosalio uring 1.6 x 1.5 cm. Right-sided Port-A-Cath is noted with tip in the distal SVC. CT/CT neck w con* [id number] IMPRESSION: 1. New area of abnormal soft tissue thickening and enhancement centered in the LEFT palatine tonsil extending towards the midline. New metastatic involvement is not excluded. Recommend direct visualization. There is no evidence for recu rrent disease in the RIGHT neck at the site of the tongue base mass previously described. 2. Significant decrease in size of the RIGHT upper lobe mass now measuring 1.6 x 1.5 cm. 3. Tracheostomy remains in good position.
[2020-11-03] MEDS: iohexol 300 mg/mL 100 mL Btl IV (08:52)
== END 2020-11-03 08:01 | disposition home or self-care (01) ==
LOC: RADWPI 08:04
PROVIDERS: PCP Nurse Practitioner Family; Visit Provider Specialist
DX: C10.8 Malignant neoplasm of overlapping sites of oropharynx (principal)
CPT/HCPCS: 70491; Q9967

== ENCOUNTER 2020-11-15 08:04 | Outpatient (CLI) | payer MEDICARE, MEDICAID, SELFPAY ==
[2020-11-14 16:38] VITALS: BMI 19.8
[2020-11-15] VITALS (16 sets, daily range): BP systolic 116–156; BP diastolic 67–84; PULSE 67–85; RESP 10–18; TEMP 37.1; O2SAT 96–100; BMI 19.8
--- NOTE | 2020-11-15 08:30 | SUR.PREOP ---
INR Labs to pathology. awaiting results.
[2020-11-15] MEDS: sodium chloride 0.9% 1,000 ML 30 ML IV (08:53)
--- NOTE | 2020-11-15 09:01 | CT_ITS ---
WS: [id number] LUNG BIOPSY CLINICAL INFORMATION: Lung Mass COMPARISON: None. DLP: 1665.07 mGy.cm TECHNIQUE: The procedure including risk, benefits, and complications were discussed with the patient who agreed to proceed. Using sterile technique, the patient was prepped and draped in the usual steri le fashion. Patient was positioned [id number] and CT images were obtained through the left lung. The largest peripheral left lung nodule was selected. After 1% lidocaine using fluoroscopic guidance , a 19-gauge coaxial needle was advanced into the left lung mass. Approximately 3 samples were obtain ed. Post procedure CT images demonstrate expected hemorrhage about the region. Tiny peripheral pneumo thorax. CT/CT biopsy lung [id number] IMPRESSION: 1. Multiple 20-gauge core samples were obtained of the left lung mass. 2. 30 minute chest x-ray demonstrates a tiny lateral pneumothorax unchanged. 3. Patient was discharged 2 hours postprocedure in stable condition.
[2020-11-15 09:09] LABS: INR 1.04 (0.8-1.2)
--- NOTE | 2020-11-15 09:35 | SUR.PREOP ---
INR RESULT INR back and WNP. MD aware. Proceeding with procedure.
--- NOTE | 2020-11-15 09:45 | SUR.PREOP ---
PROCEDURE START/DELAY Patient prepped and ready for procedure, but delayed d/t stroke protocol called. Removed from table to accomodate emergent add on. Delayed approximately 20 minutes. Patient stable and aware of delay. No c/o voiced.
--- NOTE | 2020-11-15 10:25 | SUR.PREOP ---
Pre Procedure Vital sign assessment.
--- NOTE | 2020-11-15 10:30 | SUR.PREOP ---
No pain reported at this time.
[2020-11-15] MEDS: midazolam 1 mg/mL INJ 2 mL IVP (10:34)
[2020-11-15] MEDS: fentaNYL 50 mcg/mL INJ 2mL IVP (10:35)
--- NOTE | 2020-11-15 11:18 | XR_ITS ---
WS: [id number] CHEST XRAY TECHNIQUE: Portable chest. CLINICAL INFORMATION: post left lung biopsy COMPARISON: October 26, 2020 FINDINGS: Tracheostomy. Right central venous catheter with tip in the distal SVC. Status post left lower lobe l vadim biopsy. Small amount of surrounding hemorrhage. Tiny left lateral pneumothorax unchanged since e chest CT. Moderate chronic emphysematous changes. Stable perihilar opacities. XR/XR chest 1V portable [id number] IMPRESSION: 1. Status post left lower lobe lung biopsy. Small amount of suspected surround ing hemorrhage as seen on the CT. 2. Tiny left lateral pneumothorax unchanged since the CT.
== END 2020-11-15 12:43 | disposition home or self-care (01) ==
PROVIDERS: Radiology Neuroradiology; PCP Nurse Practitioner Family; Visit Provider Internal Medicine Critical Care Medicine
DX: R91.8 Other nonspecific abnormal finding of lung field (principal)
CPT/HCPCS: 32408; 71045; 85610; 88305; 96374; 96375; J7030

== ENCOUNTER 2021-02-20 07:56 | Outpatient (CLI) | payer MEDICARE, MEDICAID, SELFPAY ==
--- NOTE | 2021-02-20 08:00 | CT_ITS ---
WS: [id number] CT CHEST WITH INTRAVENOUS CONTRAST HISTORY: OROPHARYNGEAL CANCER TECHNIQUE: Contiguous 5 mm axial imaging performed on the thorax. Coronal and sagittal reformats are submitted. All CT scans at [facility] use at least one of these dose optimization techniq ues: automated exposure control; mA and/or kV adjustment per patient size (includes targeted exams wh ere dose is matched to clinical indication); or iterative reconstruction. CONTRAST: Omnipaque 300; 95 mL IV. DLP: 651.74 mGycm COMPARISON: 11/15/2020 and PET/CT 11/25/2020 Lungs and central airway: Marked pulmonary hyperexpansion with changes of emphysema. Spiculated nodul e RIGHT upper lobe has significantly decreased in size. There is now central cavitation with some adj acent peripheral solid spiculation measuring 13 x 7 mm. Moderate decrease in size since the prior óscar dy. Nodule in the superior LEFT lower lobe now measures 13 x 6 mm with significant decrease in size. There is an additional lingular opacification which has also decrease in size now measuring 12 x 7 mm which may been atelectasis. New bilateral areas of opacification. Distribution and appearance suggests this is probably pneumonit is or pneumonia. Pleura: No pleural effusion. Heart and pericardium: Mild enlargement of the heart. No pericardial effusion. Mediastinum and kapil: Subcarinal lymph node measures 8 mm in short axis diameter with no change. No m ediastinal or hilar adenopathy. Tracheostomy in good position. Vessels: Moderate atherosclerosis aorta. Mildly enlarged pulmonary artery. Chest wall and lower neck: No soft tissue masses. Upper abdomen: Enlarged RIGHT adrenal gland measuring 2.8 x 2.1 cm. This is probably an adenoma as it is FDG negative on prior examinations. Moderate to large hiatal hernia. Visualized liver is normal. Hypodensities in the RIGHT kidney are probably cysts and stable. Osseous structures: Advanced spondylitic changes in the thoracic spine. No osteoblastic or osteolytic bone disease. CT/CT chest w con* [id number] IMPRESSION: 1. Moderate decrease in size of the previously described PET/CT positive nodul es in the RIGHT upper and LEFT lower lobes. 2. New bilateral opacifications at the lung bases are probably areas of pneumo nitis. Recommend chest CT follow-up in 3 months. 3. No mediastinal or hilar adenopathy. 4. Advanced emphysema. 5. Tracheostomy in good position. 6. Stable RIGHT adrenal adenoma. 7. Visualized liver is negative.
--- NOTE | 2021-02-20 08:00 | CT_ITS ---
WS: [id number] CT NECK WITH CONTRAST HISTORY: OROPHARYNGEAL CANCER TECHNIQUE: Contiguous 5 mm axial images are performed through the neck with intravenous contrast. Sag ittal and coronal reformats are also submitted. All CT scans at [facility] use at least o ne of these dose optimization techniques: automated exposure control; mA and/or kV adjustment per pat ient size (includes targeted exams where dose is matched to clinical indication); or iterative recons truction. CONTRAST: CONTRAST: Omnipaque 300; 75 mL IV. DLP: 918.55 mGycm COMPARISON: 11/03/2020 and 09/25/2020 No evidence for recurrent neoplasm at the neck. The area of increased soft tissue thickening in the L EFT palatine tonsil is PET/CT negative. No increase in size since 11/03/2020. There is mild edema in t he soft tissues of the larynx. No recurrent mass identified. There is distortion of the soft tissues from prior radiation. No adenopathy. There is a defect in the LEFT lateral maxilla which may be from dental caries and present on prior st ud. Right-sided Mediport. Decrease in size of the previously described RIGHT upper lobe spiculated mass. Mass is now partially cavitated with some mild soft tissue thickening around the borders measuring [address]/CT neck w con* [id number] IMPRESSION: 1. No evidence for recurrent oropharyngeal neoplasm. Very similar appearance t o the soft tissues of neck since 11/03/2020 and the PET/CT of 11/25/2020. 2. No adenopathy. 3. Tracheostomy remains in good position. RIGHT Mediport is evident. 4. Decrease in size of the RIGHT upper lobe spiculated mass as compared to 10/20.
[2021-02-20 08:33] LABS: Blood Urea Nitrogen 20 mg/dL (8-23)
[2021-02-20] MEDS: iohexol 300 mg/mL 100 mL Btl IV ×2 (09:02→09:03)
== END 2021-02-20 07:57 | disposition home or self-care (01) ==
PROVIDERS: PCP Nurse Practitioner Family; Visit Provider Internal Medicine Medical Oncology
DX: C10.8 Malignant neoplasm of overlapping sites of oropharynx (principal); D35.01 Benign neoplasm of right adrenal gland; J43.9 Emphysema, unspecified; R91.1 Solitary pulmonary nodule
CPT/HCPCS: 70491; 71260; 82565; 84520; Q9967

== ENCOUNTER 2021-03-06 13:40 | Outpatient (CLI) | payer MEDICARE, MEDICAID, SELFPAY ==
[2021-03-06 16:49] LABS: Basophils % 0.4 %; Eosinophils # 0.1 10^3/uL (0.0-0.8); Eosinophils % 2.2 %; Hemoglobin 9.7 g/dL (11.7-16.6); Lymphocytes # 0.6 10^3/uL (0.8-4.8); Mean Corpuscular HGB Conc 30.3 g/dL (30.0-36.0); Mean Corpuscular Volume 105.6 fL (80-94); Mean Platelet Volume 12.2 fL (7.4-10.4); Monocytes # 0.7 10^3/uL (0.2-0.9); Monocytes % 14.7 %; Neutrophils # 3.23 10^3/uL (1.8-7.7); Neutrophils % 69.7 %; Nucleated Red Blood Cells % 0 %; Platelet Count 266 10^3/cmm (130-400); Red Blood Count 3.03 10^6/uL (4.1-5.3); Red Cell Distribution Width 12.8 % (12.1-15.1); White Blood Count 4.6 10^3/uL (4.0-10.0)
[2021-03-06 17:06] LABS: Alanine Aminotransferase 21 U/L (0-41); Albumin Level 3.7 g/dL (3.5-5.2); Alkaline Phosphatase 84 IU/L (40-130); Anion Gap 9.7 (5-19); Aspartate Amino Transferase 19 U/L (0-40); Blood Urea Nitrogen 21 mg/dL (8-23); Calcium 9.2 mg/dL (8.5-10.5); Carbon Dioxide 36 mmol/L (22-29); Chloride 98 mmol/L (98-107); Globulin 3.3 g/dL (1.3-4.6); Glucose 178 mg/dL (65-115); Osmolality Calculated 295 mOsm/kg (285-295); Potassium 4.7 mmol/L (3.5-5.1); Sodium 139 mmol/L (136-145); Total Bilirubin 0.2 mg/dL (0.15-1.2)
== END 2021-03-06 13:41 | disposition home or self-care (01) ==
LOC: ONCMED 03-07 07:23
PROVIDERS: PCP Nurse Practitioner Family; Visit Provider Internal Medicine Medical Oncology
DX: I10 Essential (primary) hypertension (principal); J44.9 Chronic obstructive pulmonary disease, unspecified; M19.90 Unspecified osteoarthritis, unspecified site
CPT/HCPCS: 80053; 85025

== ENCOUNTER 2021-03-08 06:19 | Outpatient (CLI) | payer MEDICARE, MEDICAID, SELFPAY ==
[2021-03-08 13:03] LABS: Iron 56 ug/dL (59-158); Percent Saturation 18.3 % (20-50); Thyroid Stimulating Hormone 1.44 uIU/mL (0.27-4.20); Total Iron Binding Capacity 305 mcg/dl; Unsaturated Iron Binding 249 ug/dL (112-347); Vitamin B12 1103 pg/mL (232-1245)
[2021-03-08 13:44] LABS: Folate Level > 20.0 ng/mL (4.5-32.2)
--- NOTE | 2021-03-08 18:05 | ONC FU_ITS ---
Dr. Krishnamurthy Patient Follow-Up Note Patient: Stan Zacarias Unit #: [id number]: 1950 Dicatated By: Stan Krishnamurthy M.D.Date of Visit:March 08, 2021 Onc Med Follow-up/Prog Note Chief Complaint: Squamous cell carcinoma of the oropharynx. 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 He presented with a 4-month history of oral/pharyngeal pain and difficulty swallowing. He was seen by Dr. Steve on 05/29/2020 and he was noted on exam to have a mass in the right oropharynx which was noted to extend inferiorly. His neck CT showed a large enhancing soft tissue mass centered in the right neck beginning at the right tongue base and palate teen tonsil and extending inferiorly along the pharyngeal mucosa to the level of the vocal cords. The mass was noted to extend over a distance of at least 8 cm with a maximum diameter of 3.2 cm. The mass was noted to involve the epiglottis and the right vallecula and piriform sinus. Below the hyoid cartilage it appeared to extend to the left of the midline posteriorly. The parapharyngeal fat was noted to be effaced and intubated with the soft tissue. The mass was noted to extend posteriorly to abut the prevertebral muscles. Small cervical chain lymph nodes were noted, the largest at level 2 measuring 7 mm. On 05/31/2020 he underwent laryngoscopy/esophagoscopy with biopsy of the right oropharyngeal mass. The mass was noted to have its focus on the right tonsil with extension up into the nasopharynx behind the right soft palate and down into the right lateral oropharynx and into the upper far portion of the piriform sinus. It also was noted to extend diffusely across the posterior oropharynx to at least the midline and possibly a little past the midline. It appeared to involve the area epiglottic fold on the right but the true vocal cords appeared to be normal. He also was noted to have mild esophagitis. The right and left trachea and right and left mainstem bronchi appeared normal. Pathology showed moderately differentiated squamous cell carcinoma. The P16 stain was strongly and diffusely positive. Staging PET/CT on 06/19/2020 showed a large FDG avid right oropharyngeal mass extending from the level of the nasopharynx to the supraglottic larynx measuring 3.6 x 4.7 cm, SUV 17.7. A 9 mm right level 2A lymph node was FDG positive with SUV 3.6 consistent with local metastatic disease. There was no evidence for any other metastatic involvement. His initial clinical course was complicated by threatened airway and impending respiratory failure, requiring hospital admission on 07/11/2020. He underwent direct laryngoscopy which confirmed presence of tumor extending into the right piriform sinus and distorting the airway, requiring tracheotomy. He also underwent placement of Port-A-Cath venous access device and placement of PEG tube for enteral feeding. He then began radiation concurrently with standard high-dose cisplatin chemotherapy on 07/13/2020. He had a relatively prolonged hospital course, but he was able to be discharged home on 07/31/2020. He continued his radiation, and he received cycle 2 of cisplatin on 08/03/2020 and cycle 3 on 08/28/2020. He completed radiation on 09/04/2020 to a total dose of [address] on 09/25/2020 showed resolution of the previously described right tongue base mass with no evidence of residual disease and no evidence of cervical lymphadenopathy. There was however a spiculated mass noted in the right upper lobe measuring 2.8 x 3.0 x 3.7 cm suspicious for neoplasm. Staging PET/CT on 10/07/2020 showed resolution of the previously described right-sided oropharyngeal mass. There was inflammatory uptake noted at the tracheostomy site. A new spiculated nodule in the right upper lobe measuring 2.1 x 2.6 cm had SUV 6.2, suspicious for potential metastasis. A second similar lesion in the left lower lobe measuring 2.1 x 2.4 cm had SUV 5.2 and the left lingular opacity had mild FDG uptake, felt to be more likely a benign finding. He was referred to Dr. Bosch. On 10/26/2020 he underwent navigational bronchoscopy. There were no endobronchial lesions identified. Transbronchial FNA biopsy of the right upper lobe mass showed no evidence of malignancy. He underwent CT directed needle biopsy of the left lower lobe mass on 11/15/2020 and that also showed benign pathology. His repeat neck CT on 02/20/2021 showed no evidence for recurrent oropharyngeal neoplasm. There was no adenopathy noted in the tracheostomy was reported to be in good position. Repeat chest CT showed moderate decrease in the size of the right upper mass measuring 13 x 7 mm and of the left lower lobe mass measuring 13 x 6 mm. The lingular opacification also was noted to have decreased measuring 12 x 7 mm. There was evidence for new bilateral areas of opacification suggesting pneumonitis or pneumonia. An enlarged right adrenal gland measuring 2.8 x 2.1 cm was felt to be most likely adenoma, as it was FDG negative on the previous PET/CT. He is seen for a follow-up visit. He says he is feeling okay, but he has very limited activity. His ECOG score is 3. He does not take in anything orally. He is still getting 6 cans of Ensure daily. His weight is up a few pounds since July. He does not have fever or night sweats. He complains of having pain in his right jaw area. His breathing is okay at rest, but he does get short of breath with activity. He has cough productive of white mucus. He does not complain of chest pain. He has no GI or complaints. He has no significant joint or bone pain. He does not complain of headache or dizziness, and he has no focal neurologic symptoms. He does report having a little depression. Medications: Finasteride 1 Tablet (of 5 mg) Oral daily, Flomax 1 Capsule (of 0.4 mg) Oral daily, Meloxicam 1 Tablet (of 15 mg) Oral daily, Methotrexate 1 Tablet (of 2.5 mg) Oral q 7 days, Symbicort 1 Puff(s) (of 160-4.5 mcg/act) Aerosol Inhalation b.i.d., Ventolin HFA 1 Puff(s) (of 108 (90 base) mcg/act) Aerosol, solution Inhalation four times a day Allergies: No Known Allergies. Vital Signs: Performed on March 08, 2021 08:33 Height - 72.00 in Weight - 156.8 lbs (HIGH) BSA - 1.92 sq.m BMI - 21.27 Temperature - 99.4 F (HIGH) Pulse - 75 /min Respiration - 17 /min BP - 116/70 mm(hg) O2 Sat - 100 % Pain - 3 Physical Examination: Constitutional - He appears somewhat weak generally, Eyes - Sclerae nonicteric. Conjunctivae clear, ENMT - There is a slight coating on the tongue. There are no other lesions noted in the oral cavity, Neck - There is just mild induration in the neck. There is no mass palpable. The tracheostomy site is unremarkable, Hematologic/Lymphatic - No cervical, clavicular, or axillary adenopathy noted, Respiratory - Lungs show some decrease in air movement with coarse breath sounds bilaterally, Cardiovascular - Heart rhythm is regular. There is no murmur, gallop, or rub noted, Abdomen - Soft. Liver and spleen are not enlarged. There is no abdominal mass or ascites noted and there is no inguinal adenopathy, Extremities - No edema. He has extensive purpura, Neurologic - No focal neurologic deficits noted. Lab/Imaging: Test performed on March 06, 2021 13:40 Sodium 139 mmol/L Potassium 4.7 mmol/L Chloride 98 mmol/L CO2 36 mmol/L Anion Gap 9.7 BUN 21 mg/dL Creatinine 0.5 mg/dL Cr Clearance (Est) 143.0100 mL/min Glucose 178 mg/dL Osmolality - Calculated 295 mOsm/kg Calcium 9.2 mg/dL Protein, Total 7.0 g/dL Albumin 3.7 g/dL Globulin 3.3 g/dL Bilirubin, Total 0.2 mg/dL ALT (SGPT) 21 U/L AST (SGOT) 19 U/L Alkaline Phosphatase 84 IU/L WBC 4.6 10 3/uL RBC 3.03 10 6/uL HGB 9.7 g/dL HCT 32.0 % MCV 105.6 fL MCH 32.0 pg MCHC 30.3 g/dL RDW 12.8 % Platelet Count 266 10 3/cmm MPV 12.2 fL Neutrophils 3.23 10 3/uL Lymphocytes 0.6 10 3/uL Monocytes 0.7 10 3/uL Eosinophils 0.1 10 3/uL Basophils 0.0 10 3/uL Neutrophil % 69.7 % Lymphocyte % 13.0 % Monocyte % 14.7 % Eosinophil % 2.2 % Basophils % 0.4 % NRBC % 0 % Problem List: 1. Squamous cell carcinoma of the right oropharynx, by clinical evaluation stage IVB (T4b, N1, M0), P 16+. 2. Hypertension. 3. COPD. 4. Degenerative arthritis and presumably rheumatoid arthritis. 5. Benign prostatic hypertrophy. Problems Addressed with this Encounter and Plan: 1. 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 He was recommended to undergo radiation concurrently with standard high-dose cisplatin chemotherapy. His clinical course was complicated by airway obstruction and impending respiratory failure, requiring hospitalization for tracheotomy. He also underwent placement of Port-A-Cath venous access device and PEG tube. He was then able to begin his chemoradiation as of 07/13/2020. He tolerated it with acceptable toxicity, though he did have a prolonged hospitalization. He then received cycle 2 of cisplatin on 08/03/2020. During subsequent follow-up he did require antibiotic therapy for pneumonia, presumed to be due to aspiration. He was able to continue his radiation. He also was able to continue with cycle 3 of cisplatin chemotherapy on 08/28/2020. He completed radiation on 09/04/2020 to a total dose of 6600 cGy. He appeared to have a good response to the radiation on his follow-up neck CT on 09/25/2020. However, there was evidence of a new right upper lobe lung mass measuring 2.8 x 3.0 x 3.7 cm, felt to be consistent with a metastatic lesion or new primary lung malignancy. By PET/CT the lesion was FDG avid with SUV 6.2. That study showed an additional left lower lobe pulmonary nodule measuring 2.1 x 2.4 cm with SUV 5.2. A left lingular opacity had mild FDG uptake, consistent with benign disease. FNA biopsy of the right upper lobe nodule by navigational bronchoscopy on 10/26/2020 showed benign pathology and CT directed needle biopsy of the left lower lobe nodule on 11/15/2020 also showed benign pathology. With those findings, he was followed expectantly. Since then he has continued to have very limited activity, but his overall clinical status has remained stable. His restaging CT scans from 02/20/2021 showed no evidence of recurrence of the oropharyngeal cancer and the pulmonary nodules were noted to have decreased in size. As such, he will continue expectant management. I will see him again in 3 months. 2. His current chest CT shows new areas of opacification in both lungs consistent with pneumonitis or pneumonia. I reviewed these with Dr. Bosch, and the findings are suspicious for aspiration. He will be given empiric antibiotic coverage with Augmentin 1200 mg twice daily for 10 days. Signed By: Stan Krishnamurthy M.D. <<Signature on File>>
== END 2021-03-08 06:20 | disposition home or self-care (01) ==
LOC: ONCMED 06:21
PROVIDERS: PCP Nurse Practitioner Family; Visit Provider Internal Medicine Medical Oncology
DX: Z08 Encounter for follow-up examination after completed treatment for malignant neoplasm (principal); Z85.818 Personal history of malignant neoplasm of other sites of lip, oral cavity, and pharynx; I10 Essential (primary) hypertension; J44.9 Chronic obstructive pulmonary disease, unspecified; M06.9 Rheumatoid arthritis, unspecified; N40.0 Benign prostatic hyperplasia without lower urinary tract symptoms; Z79.899 Other long term (current) drug therapy; Z92.21 Personal history of antineoplastic chemotherapy; Z92.3 Personal history of irradiation
CPT/HCPCS: 82607; 82746; 83540; 83550; 84443; 99214

== ENCOUNTER 2021-04-02 13:08 | Outpatient (CLI) | payer MEDICARE, MEDICAID, SELFPAY ==
[2021-04-02] MEDS: ferric carboxy (IVPB) 750 MG in sodium chloride 0.9% (100 ml) 100 ML 460 MG IV (13:17)
== END 2021-04-02 13:09 | disposition home or self-care (01) ==
PROVIDERS: PCP Nurse Practitioner Family; Visit Provider Internal Medicine Medical Oncology
DX: D50.9 Iron deficiency anemia, unspecified (principal)
CPT/HCPCS: 96365; J1439

== ENCOUNTER 2021-05-07 12:24 | Outpatient (CLI) | payer MEDICARE, MEDICAID, SELFPAY ==
[2021-04-09] MEDS: ferric carboxy (IVPB) 750 MG in sodium chloride 0.9% (100 ml) 100 ML 345 MG IV (13:20)
[2021-05-07 13:03] LABS: Basophils % 0.3 %; Eosinophils # 0.1 10^3/uL (0.0-0.8); Eosinophils % 2.1 %; Hematocrit 34.8 % (42.0-52.0); Lymphocytes # 0.7 10^3/uL (0.8-4.8); Lymphocytes % 10.3 %; Mean Corpuscular HGB Conc 31.6 g/dL (30.0-36.0); Mean Corpuscular Volume 104.5 fL (80-94); Mean Platelet Volume 11.9 fL (7.4-10.4); Monocytes % 14.1 %; Neutrophils # 4.98 10^3/uL (1.8-7.7); Neutrophils % 73.1 %; Nucleated Red Blood Cells % 0 %; Platelet Count 248 10^3/cmm (130-400); Red Blood Count 3.33 10^6/uL (4.1-5.3); Red Cell Distribution Width 12.7 % (12.1-15.1); White Blood Count 6.8 10^3/uL (4.0-10.0)
[2021-05-07 14:00] LABS: Alanine Aminotransferase 57 U/L (0-41); Albumin Level 3.8 g/dL (3.5-5.2); Alkaline Phosphatase 90 IU/L (40-130); Anion Gap 12.6 (5-19); Aspartate Amino Transferase 27 U/L (0-40); Blood Urea Nitrogen 22 mg/dL (8-23); Calcium 9.3 mg/dL (8.5-10.5); Carbon Dioxide 32 mmol/L (22-29); Chloride 97 mmol/L (98-107); Globulin 2.9 g/dL (1.3-4.6); Glucose 93 mg/dL (65-115); Iron 69 ug/dL (59-158); Osmolality Calculated 287 mOsm/kg (285-295); Percent Saturation 25.4 % (20-50); Potassium 4.6 mmol/L (3.5-5.1); Sodium 137 mmol/L (136-145); Total Bilirubin 0.2 mg/dL (0.15-1.2); Total Iron Binding Capacity 271 mcg/dl; Total Protein 6.7 g/dL (6.6-8.7); Unsaturated Iron Binding 202 ug/dL (112-347)
== END 2021-05-07 12:25 | disposition home or self-care (01) ==
PROVIDERS: PCP Nurse Practitioner Family; Visit Provider Internal Medicine Medical Oncology
DX: D50.9 Iron deficiency anemia, unspecified (principal); Z79.899 Other long term (current) drug therapy
CPT/HCPCS: 36415; 36591; 80053; 83540; 83550; 85025; 96365; J1439

== ENCOUNTER 2021-09-26 07:45 | Day surgery (SDC) | payer MEDICARE, MEDICAID, SELFPAY ==
--- NOTE | 2021-09-26 08:06 | ANES.PREANE2 ---
Pre-Anesthetic Assessment Pre-Anesthetic Assessment: Height/Weight: Height 1.85 m Preop Diagnosis: Oropharyngeal cancer with possible metastatic disease to the lung Proposed Procedure: Operation Date: 09/26/21 09:45 Proposed Procedures p PEG Tube Exchange(Not Applicable) - Travis Vang MD Familial anesthetic complications: None Last intake: >Jevity at 0300 via feeding tube Social: Social History: No alcohol and No tobacco Exam: Pre-Anes Outpt Exam: alert, oriented x 3, clear to auscultation bilaterally and regular rate & rhythm Additional Exam Findings (including area of procedure): coarse breath sounds b/l Airway: MP: 3 Dentition: Other (no teeth) Additional comments: Tracheostomy - > 1 year old, oropharyngeal mass s/p chemo and radiation - now cancer free Pulmonary: Pulmonary: COPD (3 L NC contiuously) Anesthetic Plan: ASA status: 4 Anesthesia: MAC Risk of > 500 ml blood loss (7ml/kg in children): No PFSH Anesthesia PFSH: Medical History Anxiety BPH (benign prostatic hyperplasia) COPD (chronic obstructive pulmonary disease) Hypertension Rheumatoid arthritis Squamous cell carcinoma of oropharynx Surgical History H/O transurethral resection of prostate History of biopsy 05/31/2020 laryngoscopy with biopsy of right oropharyngeal mass History of local excision of skin lesion Family History Mother , Unknown health problems No problems noted. Father , Unknown health problems No problems noted. 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
[2021-09-26 08:46] VITALS: BMI 20.4
--- NOTE | 2021-09-26 09:00 | P.HPUD_ITS ---
Surgery/Procedure H&P Update DATE OF PROCEDURE: September 26, 2021 DATE H&P PERFORMED: 09/19/21 H&P UPDATE INFORMATION: I have reviewed H&P completed within last 30 days, I have examined patient prior to procedure and No changes to prior documentation PREOP DIAGNOSIS: Dysfunction of gastrostomy feeding tube PRIMARY INDICATION FOR PROCEDURE: The same We will plan to do the procedure under MAC for explantation of the mushroom- shaped PEG tube and placement of Wilton button. PLANNED PROCEDURE: Operation Date: 09/26/21 09:45 Proposed Procedures p PEG Tube Exchange(Not Applicable) - Travis Vang MD
[2021-09-26 09:21] VITALS: BP 108/59; PULSE 76; RESP 16; TEMP 36.4; O2SAT 99
[2021-09-26] MEDS: sodium chloride 0.9% 1,000 ML 30 ML IV (09:22)
--- NOTE | 2021-09-26 12:02 | PM.OP ---
Operative Report Date of procedure: September 26, 2021 Pre-op Diagnosis: Dysfunction of gastrostomy feeding tube Post-op diagnosis: same Procedure Done: 1-Explantation of PEG tube 2-Placement of Wilton button 20 Vietnamese/3.5 cm Implants: Wilton button 20 Vietnamese/3.5 cm Surgeon: Travis Vang Bench Precision Assembler: GI nurse Nette Circulating nurse Nette Anesthesia: MAC (Matt Campos) Estimated blood loss (mL): 1 Condition: stable Disposition: same day Procedure: Patient was identified in the holding area, was taken to GI lab placed in supine position, time-out was done verifying the patient's name, date of , and procedure, all were in agreement. IV propofol was infused by the TECHNICAL ACCOUNT MANAGER. patient was hooked to a threat monitoring analyst through the whole entire procedure. At this point the 20 Vietnamese PEG tube was taken out without difficulty from the gastrostomy site, following that a Wilton button 20 Vietnamese/3.5 cm in length, pretested balloon and well lubricated, was inserted via the gastrostomy site without difficulty, the balloon was inflated up to 6 mL of normal saline. And gastric contents were revealed after tubing was attached. Patient tolerated the procedure well and was taken to the recovery area I was present for the whole entire procedure
[2021-09-26 12:05] VITALS: BP 111/60; PULSE 61; RESP 16; TEMP 36.6; O2SAT 100
[2021-09-26 12:14] VITALS: BP 137/72; PULSE 68; RESP 18; O2SAT 100
--- NOTE | 2021-09-26 13:39 | ANE.PACU2 ---
Inpatient post-anesthesia follow up: Airway intact: Yes Vital signs: Temperature 97.9 F Pulse Rate 68 Respiratory Rate 18 Blood Pressure 137/72 Pulse Oximetry 100 Oxygen Delivery Me thod Trach Collar Oxygen Flow Rate 3 Fraction of Inspir ed Oxygen Hydration adequate: Yes Nausea and vomiting: No Pain level: 2 Mental status: Baseline
== END 2021-09-26 12:36 | disposition home or self-care (01) ==
PROVIDERS: PCP Nurse Practitioner Family; Visit Provider Surgery
PROC: (CPT 43762; principal; 2021-09-26 09:45)
DX: K94.23 Gastrostomy malfunction (principal); Y83.8 Other surgical procedures as the cause of abnormal reaction of the patient, or of later complication, without mention of misadventure at the time of the procedure; J44.9 Chronic obstructive pulmonary disease, unspecified; I10 Essential (primary) hypertension; F41.9 Anxiety disorder, unspecified; N40.0 Benign prostatic hyperplasia without lower urinary tract symptoms; Z85.818 Personal history of malignant neoplasm of other sites of lip, oral cavity, and pharynx; Z87.891 Personal history of nicotine dependence
CPT/HCPCS: 43762; 96360; 96361; J2704; J7030

== ENCOUNTER 2021-12-21 09:16 | Outpatient (CLI) | payer MEDICARE, MEDICAID, SELFPAY ==
--- NOTE | 2021-12-21 09:25 | FL_ITS ---
WS: [id number] Modified barium swallow, 12/21/2021 Clinical Data: Other dysphagia Comparison: None. Fluoroscopy time: 0.7 minutes. Findings: The patient exhibited a normal oral function. However when the liquid passed into the hypopharynx the re was penetration and then aspiration but the patient did not cough. Because of the aspiration no so lid material was given to the patient. FL/FL barium swallow modifd [id number] Impression: Aspiration of liquids with no coughing.
== END 2021-12-21 09:17 | disposition home or self-care (01) ==
LOC: RAD 09:17
PROVIDERS: PCP Nurse Practitioner Family; Visit Provider Specialist
DX: Z43.0 Encounter for attention to tracheostomy (principal); C10.8 Malignant neoplasm of overlapping sites of oropharynx; R13.19 Other dysphagia
CPT/HCPCS: 74230; 92611

== ENCOUNTER 2022-01-16 09:15 | Outpatient (CLI) | payer MEDICARE, MEDICAID, SELFPAY ==
[2022-01-16 09:54] LABS: Basophils % 0.1 %; Eosinophils # 0.1 10^3/uL (0.0-0.8); Eosinophils % 0.9 %; Hemoglobin 10.8 g/dL (11.7-16.6); Lymphocytes # 0.5 10^3/uL (0.8-4.8); Lymphocytes % 6.7 %; Mean Corpuscular HGB Conc 31.8 g/dL (30.0-36.0); Mean Corpuscular Hemoglobin 33.3 pg (28.0-34.0); Mean Corpuscular Volume 104.9 fl (80-94); Mean Platelet Volume 11.9 fL (7.4-10.4); Monocytes # 0.9 10^3/uL (0.2-0.9); Monocytes % 11.5 %; Neutrophils # 5.99 10^3/uL (1.8-7.7); Neutrophils % 80.5 %; Nucleated Red Blood Cells % 0 %; Platelet Count 257 10^3/cmm (130-400); Red Blood Count 3.24 10^6/uL (4.1-5.3); White Blood Count 7.5 10^3/uL (4.0-10.0)
[2022-01-16 10:17] LABS: Alanine Aminotransferase 33 U/L (0-41); Albumin Level 4.2 g/dL (3.5-5.2); Alkaline Phosphatase 95 IU/L (40-130); Anion Gap 14.6 (5-19); Aspartate Amino Transferase 23 U/L (0-40); Blood Urea Nitrogen 26 mg/dL (8-23); Calcium 10.1 mg/dL (8.5-10.5); Carbon Dioxide 29 mmol/L (22-29); Chloride 100 mmol/L (98-107); Globulin 2.8 g/dL (1.3-4.6); Glucose 97 mg/dL (65-115); Iron 78 ug/dL (59-158); Osmolality Calculated 293 mOsm/kg (285-295); Percent Saturation 26.2 % (20-50); Potassium 4.6 mmol/L (3.5-5.1); Sodium 139 mmol/L (136-145); Total Bilirubin 0.2 mg/dL (0.15-1.2); Total Iron Binding Capacity 297 mcg/dl; Unsaturated Iron Binding 219 ug/dL (112-347)
[2022-01-16 11:57] LABS: Thyroid Stimulating Hormone 1.22 uIU/mL (0.27-4.20); Vitamin B12 1313 pg/mL (232-1245)
--- NOTE | 2022-01-18 06:48 | ONC FU_ITS ---
Dr. Krishnamurthy Patient Follow-Up Note Patient: Stan Zacarias Unit #: [id number]: 1950 Dicatated By: Stan Krishnamruthy M.D.Date of Visit:Jan 16, 2022 Onc Med Follow-up/Prog Note Chief Complaint: Squamous cell carcinoma of the oropharynx. 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 He presented with a 4-month history of oral/pharyngeal pain and difficulty swallowing. He was seen by Dr. Cesar on 05/29/2020 and he was noted on exam to have a mass in the right oropharynx which was noted to extend inferiorly. His neck CT showed a large enhancing soft tissue mass centered in the right neck beginning at the right tongue base and palate teen tonsil and extending inferiorly along the pharyngeal mucosa to the level of the vocal cords. The mass was noted to extend over a distance of at least 8 cm with a maximum diameter of 3.2 cm. The mass was noted to involve the epiglottis and the right vallecula and piriform sinus. Below the hyoid cartilage it appeared to extend to the left of the midline posteriorly. The parapharyngeal fat was noted to be effaced and intubated with the soft tissue. The mass was noted to extend posteriorly to abut the prevertebral muscles. Small cervical chain lymph nodes were noted, the largest at level 2 measuring 7 mm. On 05/31/2020 he underwent laryngoscopy/esophagoscopy with biopsy of the right oropharyngeal mass. The mass was noted to have its focus on the right tonsil with extension up into the nasopharynx behind the right soft palate and down into the right lateral oropharynx and into the upper far portion of the piriform sinus. It also was noted to extend diffusely across the posterior oropharynx to at least the midline and possibly a little past the midline. It appeared to involve the area epiglottic fold on the right but the true vocal cords appeared to be normal. He also was noted to have mild esophagitis. The right and left trachea and right and left mainstem bronchi appeared normal. Pathology showed moderately differentiated squamous cell carcinoma. The P16 stain was strongly and diffusely positive. Staging PET/CT on 06/19/2020 showed a large FDG avid right oropharyngeal mass extending from the level of the nasopharynx to the supraglottic larynx measuring 3.6 x 4.7 cm, SUV 17.7. A 9 mm right level 2A lymph node was FDG positive with SUV 3.6 consistent with local metastatic disease. There was no evidence for any other metastatic involvement. His initial clinical course was complicated by threatened airway and impending respiratory failure, requiring hospital admission on 07/11/2020. He underwent direct laryngoscopy which confirmed presence of tumor extending into the right piriform sinus and distorting the airway, requiring tracheotomy. He also underwent placement of Port-A-Cath venous access device and placement of PEG tube for enteral feeding. He then began radiation concurrently with standard high-dose cisplatin chemotherapy on 07/13/2020. He had a relatively prolonged hospital course, but he was able to be discharged home on 07/31/2020. He continued his radiation, and he received cycle 2 of cisplatin on 08/03/2020 and cycle 3 on 08/28/2020. He completed radiation on 09/04/2020 to a total dose of [address] on 09/25/2020 showed resolution of the previously described right tongue base mass with no evidence of residual disease and no evidence of cervical lymphadenopathy. There was however a spiculated mass noted in the right upper lobe measuring 2.8 x 3.0 x 3.7 cm suspicious for neoplasm. Staging PET/CT on 10/07/2020 showed resolution of the previously described right-sided oropharyngeal mass. There was inflammatory uptake noted at the tracheostomy site. A new spiculated nodule in the right upper lobe measuring 2.1 x 2.6 cm had SUV 6.2, suspicious for potential metastasis. A second similar lesion in the left lower lobe measuring 2.1 x 2.4 cm had SUV 5.2 and the left lingular opacity had mild FDG uptake, felt to be more likely a benign finding. He was referred to Dr. Bosch. On 10/26/2020 he underwent navigational bronchoscopy. There were no endobronchial lesions identified. Transbronchial FNA biopsy of the right upper lobe mass showed no evidence of malignancy. He underwent CT directed needle biopsy of the left lower lobe mass on 11/15/2020 and that also showed benign pathology. His repeat neck CT on 02/20/2021 showed no evidence for recurrent oropharyngeal neoplasm. There was no adenopathy noted in the tracheostomy was reported to be in good position. Repeat chest CT showed moderate decrease in the size of the right upper mass measuring 13 x 7 mm and of the left lower lobe mass measuring 13 x 6 mm. The lingular opacification also was noted to have decreased measuring 12 x 7 mm. There was evidence for new bilateral areas of opacification suggesting pneumonitis or pneumonia. An enlarged right adrenal gland measuring 2.8 x 2.1 cm was felt to be most likely adenoma, as it was FDG negative on the previous PET/CT. As of his follow-up visit on 03/08/2021 he continued to have fairly marginal performance status, but there was no evidence of recurrence of the oropharyngeal cancer. He continued expectant management. His other medical illnesses include hypertension, COPD, degenerative arthritis, and benign prostatic hypertrophy. He has a history of smoking for more than 50 years. The amount is uncertain, as he rolled his own, but it was estimated to be at least a pack of cigarettes daily. INTERIM HISTORY: In September 2021 he underwent explantation of the PEG tube with placement of a [place] button 20 [place] implant. His modified barium swallow on 12/21/2021 showed aspiration of liquids but with no associated coughing. He is seen for a follow-up visit. His main complaint is that for the past several months he has been having pain in the right jaw area and in the area just under his tracheostomy. His energy is still not too good, and he continues to have very limited activity. His ECOG score is 3. He has tolerating tube feeding without difficulty. By our scale he has gained 7 pounds over the past year. He does not have fever or night sweats. He complains that his tongue is sore. He does cough up mucus. He has shortness of breath, and he is on continuous oxygen through the trach. He does not complain of chest pain. He sometimes has nausea. He has no other GI or complaints. He has joint pain, mainly in the hands. He also has pain in his neck and back. He is still taking meloxicam. He does not complain of headache or dizziness, and he has no focal neurologic symptoms. Medications: B-1 1 Tablet (of 100 mg) Oral daily, Escitalopram Oxalate 1 Tablet (of 20 mg) Oral daily, Finasteride 1 Tablet (of 5 mg) Oral daily, Meloxicam 1 Tablet (of 15 mg) Oral daily, Morphine Sulfate 0.5 - 1 mL (of 20 mg/5mL) Solution Oral q 4 hours PRN, Symbicort 1 Puff(s) (of 160-4.5 mcg/act) Aerosol Inhalation b.i.d., Tamsulosin HCl 1 Tablet (of 0.4 mg) Capsule Oral daily, Therapeutic M Tablet Oral daily, Ventolin HFA 1 Puff(s) (of 108 (90 base) mcg/act) Aerosol, solution Inhalation four times a day, Vitamin D3 Tablet Oral Take as Directed Allergies: No Known Allergies. Vital Signs: Performed on Jan 16, 2022 11:18 Height - 72.00 in Weight - 163.8 lbs (HIGH) BSA - 1.96 sq.m BMI - 22.22 Temperature - 98.6 F Pulse - 88 /min Respiration - 16 /min BP - 119/65 mm(hg) O2 Sat - 97 % Pain - 6 Fatigue - 8 Physical Examination: Constitutional - He appears somewhat weak generally, Eyes - Sclerae nonicteric. Conjunctivae clear, ENMT - No lesions noted in the oral cavity, Neck - Neck shows just mild induration. There is no mass or thyromegaly noted, Hematologic/Lymphatic - No cervical, clavicular, or axillary adenopathy noted, Respiratory - Lungs show some decrease in air movement with coarse breath sounds bilaterally, Cardiovascular - Heart rhythm is regular. There is no murmur, gallop, or rub noted, Abdomen - Soft. Liver and spleen are not enlarged. There is no abdominal mass or ascites noted and there is no inguinal adenopathy, Extremities - No edema. He has extensive purpura, Neurologic - No focal neurologic deficits noted. Lab/Imaging: Test performed on Jan 16, 2022 09:40 Iron 78 mcg/dL Sodium 139 mmol/L TSH 1.22 uIU/mL Vitamin B12 1313 pg/mL Iron Binding Capacity (TIBC) 297 mcg/dl Potassium 4.6 mmol/L % Iron Saturation 26.2 % Chloride 100 mmol/L CO2 29 mmol/L UIBC 219 mcg/dL Anion Gap 14.6 BUN 26 mg/dL Creatinine 0.7 mg/dL Cr Clearance (Est) 102.1500 mL/min Glucose 97 mg/dL Osmolality - Calculated 293 mOsm/kg Calcium 10.1 mg/dL Protein, Total 7.0 g/dL Albumin 4.2 g/dL Globulin 2.8 g/dL Bilirubin, Total 0.2 mg/dL ALT (SGPT) 33 U/L AST (SGOT) 23 U/L Alkaline Phosphatase 95 IU/L WBC 7.5 10 3/uL RBC 3.24 10 6/uL HGB 10.8 g/dL HCT 34.0 % MCV 104.9 fl MCH 33.3 pg MCHC 31.8 g/dL RDW 12.0 % Platelet Count 257 10 3/cmm MPV 11.9 fL Neutrophils 5.99 10 3/uL Lymphocytes 0.5 10 3/uL Monocytes 0.9 10 3/uL Eosinophils 0.1 10 3/uL Basophils 0.0 10 3/uL Neutrophil % 80.5 % Lymphocyte % 6.7 % Monocyte % 11.5 % Eosinophil % 0.9 % Basophils % 0.1 % NRBC % 0 % Problem List: 1. Squamous cell carcinoma of the right oropharynx, by clinical evaluation stage IVB (T4b, N1, M0), P 16+. 2. Hypertension. 3. COPD. 4. Degenerative arthritis and presumably rheumatoid arthritis. 5. Benign prostatic hypertrophy. Problems Addressed with this Encounter and Plan: 1. 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 He was recommended to undergo radiation concurrently with standard high-dose cisplatin chemotherapy. His clinical course was complicated by airway obstruction and impending respiratory failure, requiring hospitalization for tracheotomy. He also underwent placement of Port-A-Cath venous access device and PEG tube. He was then able to begin his chemoradiation as of 07/13/2020. He tolerated it with acceptable toxicity, though he did have a prolonged hospitalization. He then received cycle 2 of cisplatin on 08/03/2020. During subsequent follow-up he did require antibiotic therapy for pneumonia, presumed to be due to aspiration. He was able to continue his radiation. He also was able to continue with cycle 3 of cisplatin chemotherapy on 08/28/2020. He completed radiation on 09/04/2020 to a total dose of 6600 cGy. He appeared to have a good response to the radiation on his follow-up neck CT on 09/25/2020. However, there was evidence of a new right upper lobe lung mass measuring 2.8 x 3.0 x 3.7 cm, felt to be consistent with a metastatic lesion or new primary lung malignancy. By PET/CT the lesion was FDG avid with SUV 6.2. That study showed an additional left lower lobe pulmonary nodule measuring 2.1 x 2.4 cm with SUV 5.2. A left lingular opacity had mild FDG uptake, consistent with benign disease. FNA biopsy of the right upper lobe nodule by navigational bronchoscopy on 10/26/2020 showed benign pathology and CT directed needle biopsy of the left lower lobe nodule on 11/15/2020 also showed benign pathology. With those findings, he was followed expectantly. During follow-up his continued to have marginal performance status, but thus far there has been no evidence of recurrence of the oropharyngeal cancer. He will continue on expectant management. He will be scheduled for a follow-up visit with restaging CT scans in 2 months, which will be a 1-year interval since his last studies. 2. He has remained mildly anemic. His specific cause has not been determined. I will repeat his blood count and serum iron studies with his next visit. Signed By: Stan Krishnamurthy M.D. <<Signature on File>>
== END 2022-01-16 09:16 | disposition home or self-care (01) ==
PROVIDERS: PCP Nurse Practitioner Family; Visit Provider Internal Medicine Medical Oncology
DX: Z08 Encounter for follow-up examination after completed treatment for malignant neoplasm (principal); Z85.818 Personal history of malignant neoplasm of other sites of lip, oral cavity, and pharynx; I10 Essential (primary) hypertension; J44.9 Chronic obstructive pulmonary disease, unspecified; M19.90 Unspecified osteoarthritis, unspecified site; N40.0 Benign prostatic hyperplasia without lower urinary tract symptoms; D64.9 Anemia, unspecified; Z79.899 Other long term (current) drug therapy; Z92.21 Personal history of antineoplastic chemotherapy; Z92.3 Personal history of irradiation
CPT/HCPCS: 36591; 80053; 82607; 83540; 83550; 84443; 85025; 99214

== ENCOUNTER 2022-05-01 08:00 | Oncology outpatient (recurring) (ONCR) | payer MEDICARE, MEDICAID, SELFPAY ==
--- NOTE | 2022-04-24 08:20 | CT_ITS ---
WS: [id number] CT NECK TECHNIQUE: Contrast-enhanced CT of the neck with coronal and sagittal reformatted images. CLINICAL INFORMATION: HEAD/NECK CANCER COMPARISON: CT February 20, 2021 and PET/CT November 25, 2020 DLP: 540.[address] scans at [facility] use at least one of these dose optimization techniques: automated e xposure control; mA and/or kV adjustment per patient size (includes targeted exams where dose is matc hed to clinical indication); or iterative reconstruction. FINDINGS: Partially visualized paranasal sinuses are well aerated. Normal posterior nasopharynx. Normal parapha ryngeal fat. Normal parotid glands and submandibular glands. No evidence of supraglottic or glottic m ass. No cervical lymphadenopathy. Tracheostomy in place. Normal thyroid gland. Moderate RIGHT greater than LEFT, carotid bulb calcification. Thoracic kyphosis with straightening an d reversal of the normal cervical lordosis CT/CT neck w con* [id number] IMPRESSION: 1. No evidence of recurrent oropharyngeal neoplasm. 2. No evidence of supraglottic or glottic mass. Subglottic airway is patent. 3. No cervical lymphadenopathy. 4. Stable tracheostomy.
--- NOTE | 2022-04-24 08:28 | CT_ITS ---
WS: [id number] CT CHEST TECHNIQUE: Contrast enhanced CT of the chest with coronal and sagittal reformatted images. CLINICAL INFORMATION: HEAD/NECK CANCER COMPARISON: CT chest February 20, 2021 PET/CT November 25, 2020 DLP: 277.[address] scans at [facility] use at least one of these dose optimization techniques: automated e xposure control; mA and/or kV adjustment per patient size (includes targeted exams where dose is matc hed to clinical indication); or iterative reconstruction. FINDINGS: Advanced chronic emphysematous changes. Incidental azygos fissure. Tracheostomy. Spiculated mass in t he RIGHT upper lobe has improved over the last several examinations with a small amount of residual s oft tissue thickening likely due to treatment-related changes. Subsegmental atelectasis in the lung b ases. Previously described opacities in the lung bases have improved. Small residual opacity LEFT lower lobe measuring 15 mm similar to previous. RIGHT adrenal adenoma allegra suring 2.8 x 2.0 cm is unchanged. Moderate to large esophageal hiatal hernia. Partially visualized re nal cysts. Advanced spondylitic changes thoracic spine. Aortic calcification. Normal caliber thoracic aorta. Proximal main pulmonary arteries appear normal. No mediastinal or hilar lymphadenopathy. Leonidas nary calcification. Splenic artery calcification. CT/CT chest w con* [id number] IMPRESSION: 1. No evidence of new or progressed disease. 2. Slightly spiculated RIGHT upper lobe opacity has nearly resolved. Small estefanía unt of residual soft tissue thickening likely due to treatment-related changes. 3. Improved opacities in the lung bases with small amount of residual subsegme ntal atelectasis and small lobulated opacity LEFT lower lobe measuring 16 mm li samuel infectious or inflammatory. This is similar to previous. 4. No mediastinal or hilar lymphadenopathy. 5. Tracheostomy. 6. Stable RIGHT adrenal adenoma.
[2022-04-24 09:07] LABS: Basophils % 0.3 %; Eosinophils # 0.1 10^3/uL (0.0-0.8); Eosinophils % 1.1 %; Hematocrit 32.8 % (42.0-52.0); Hemoglobin 10.7 g/dL (11.7-16.6); Lymphocytes # 0.6 10^3/uL (0.8-4.8); Lymphocytes % 7.7 %; Mean Corpuscular HGB Conc 32.6 g/dL (30.0-36.0); Mean Corpuscular Hemoglobin 33.1 pg (28.0-34.0); Mean Corpuscular Volume 101.5 fl (80-94); Mean Platelet Volume 11.1 fL (7.4-10.4); Monocytes # 0.9 10^3/uL (0.2-0.9); Monocytes % 11.7 %; Neutrophils # 6.27 10^3/uL (1.8-7.7); Neutrophils % 78.8 %; Nucleated Red Blood Cells % 0 %; Platelet Count 266 10^3/cmm (130-400); Red Blood Count 3.23 10^6/uL (4.1-5.3); Red Cell Distribution Width 12.1 % (12.1-15.1)
[2022-04-24 09:31] LABS: Alanine Aminotransferase 28 U/L (0-41); Alkaline Phosphatase 97 IU/L (40-130); Anion Gap 13.8 (5-19); Aspartate Amino Transferase 21 U/L (0-40); Blood Urea Nitrogen 26 mg/dL (8-23); Calcium 9.2 mg/dL (8.5-10.5); Carbon Dioxide 31 mmol/L (22-29); Chloride 95 mmol/L (98-107); Glucose 100 mg/dL (65-115); Osmolality Calculated 285 mOsm/kg (285-295); Potassium 4.8 mmol/L (3.5-5.1); Sodium 135 mmol/L (136-145); Total Bilirubin 0.2 mg/dL (0.15-1.2)
[2022-04-24 09:44] LABS: Iron 67 ug/dL (59-158); Total Iron Binding Capacity 279 mcg/dl; Unsaturated Iron Binding 212 ug/dL (112-347)
[2022-04-24] MEDS: iohexol 350 mg/mL 100 mL Btl IV ×2 (10:07→10:08)
== END 2022-05-19 23:59 | disposition home or self-care (01) ==
PROVIDERS: PCP Nurse Practitioner Family; Referring Provider Specialist; Visit Provider Internal Medicine Medical Oncology
DX: Z08 Encounter for follow-up examination after completed treatment for malignant neoplasm (principal); Z85.818 Personal history of malignant neoplasm of other sites of lip, oral cavity, and pharynx; D64.9 Anemia, unspecified; Z92.21 Personal history of antineoplastic chemotherapy; Z92.3 Personal history of irradiation
CPT/HCPCS: 36591; 70491; 71260; 80053; 83540; 83550; 85025; 99214; G0463

== ENCOUNTER → 2022-06-26 08:25 | Outpatient (BNVA) | payer MEDICARE, MEDICAID, SELFPAY | PROVIDERS: PCP Nurse Practitioner Family; Visit Provider Internal Medicine Critical Care Medicine | DX: Z87.891 Personal history of nicotine dependence (principal); Z92.3 Personal history of irradiation; Z92.21 Personal history of antineoplastic chemotherapy; Z93.0 Tracheostomy status; J44.9 Chronic obstructive pulmonary disease, unspecified; R91.8 Other nonspecific abnormal finding of lung field; C10.9 Malignant neoplasm of oropharynx, unspecified | CPT/HCPCS: 99213 ==

== ENCOUNTER 2022-09-13 06:05 | Outpatient (CLI) | payer MEDICARE, MEDICAID, SELFPAY ==
--- NOTE | 2022-09-13 | CT_ITS ---
WS: [id number] CT NECK TECHNIQUE: Contrast-enhanced CT of the neck with coronal and sagittal reformatted images. CLINICAL INFORMATION: MALIGNANT NEOPLASM OF OVERLAPPING SITES OF OROPHARYNX COMPARISON: CT April 24, 2022 and PET/CT to 11/25/20 DLP: 326.[address] scans at [facility] use at least one of these dose optimization techniques: automated e xposure control; mA and/or kV adjustment per patient size (includes targeted exams where dose is matc hed to clinical indication); or iterative reconstruction. FINDINGS: Tracheostomy. Parotid glands are normal. Normal submandibular glands. Normal posterior oropharynx. No evidence of s upraglottic or glottic mass. Subglottic airway appears patent. No cervical lymphadenopathy. Fibrosis lung apices. Mastoid air cells well aerated. Visualized paranasal sinuses are well aerated. Moderate RIGHT greater than LEFT, carotid bulb calcification. Moderate cervical and thoracic kyphosis . CT/CT neck w con* [id number] IMPRESSION: 1. No evidence of recurrent oropharyngeal neoplasm. 2. No evidence of supraglottic or glottic mass. Subglottic airway is patent. 3. No cervical lymphadenopathy. 4. Stable tracheostomy.
[2022-09-13] MEDS: iohexol 350 mg/mL 500 mL Btl (per mL) IV (06:17)
== END 2022-09-13 06:06 | disposition home or self-care (01) ==
LOC: RAD 06:07
PROVIDERS: PCP Nurse Practitioner Family; Visit Provider Specialist
DX: C10.8 Malignant neoplasm of overlapping sites of oropharynx (principal); Z93.0 Tracheostomy status
CPT/HCPCS: 70491; Q9967

== ENCOUNTER 2022-09-20 08:36 | Oncology outpatient (recurring) (ONCR) | payer MEDICARE, MEDICAID, SELFPAY | END 2022-10-19 23:59 | disposition home or self-care (01) | PROVIDERS: PCP Nurse Practitioner Family; Visit Provider Internal Medicine Medical Oncology | DX: Z08 Encounter for follow-up examination after completed treatment for malignant neoplasm (principal); Z85.818 Personal history of malignant neoplasm of other sites of lip, oral cavity, and pharynx; Z92.21 Personal history of antineoplastic chemotherapy; Z92.3 Personal history of irradiation; Z87.891 Personal history of nicotine dependence | CPT/HCPCS: 96523; 99213; 99214 ==